=== PATIENT | male | born 1945 | race Two or more races ===

== ENCOUNTER 2022-07-30 01:28 | Inpatient (IN) | payer BC, OTHER ==
[2022-07-30] VITALS (9 sets, daily range): BP systolic 108–142; BP diastolic 35–82
[~2022-07-30] VITALS: Ht 188 cm; Wt 85.7 kg
--- NOTE | 2022-07-30 01:31 | NUR ---
PT BIBRA FROM SN[facility] FOR C/O SOB,AMS, AND DESAURATION. PER EMS, PT FOUND SATTING IN THE 60S AND WAS PLACED ON 15LPM NRB WHICH WILLIAM SAT UP TO HIGH 90S. PT MENTATION RETURNED TO BASELINE AFTER BEING PLACED ON O2. PT AWAKE AND ALERT ANSWERS QUESTIONS APPROPRIATELY. TITRATED O2 TO 8LPM SIMPLE MASK AND MAITAINED O2 AT 100%. MD WAS AT BEDSIDE FOR EVAL.
--- NOTE | 2022-07-30 01:34 | NUR ---
SHANDA [facility] [phone]
[2022-07-30] MEDS ORDERED: ALBUTEROL FS 2.5 MG/3 ML VIAL.NEB ONE ×2 (01:51→06:05)
[2022-07-30] MEDS ORDERED: IPRATROPIUM NEB FS 0.5 MG/2.5 ML AMPUL.NEB ONE (01:51)
--- NOTE | 2022-07-30 01:52 | NUR ---
20G IV ESTABLISHED AT . BLOOD DRAWN AND SENT TO LAB Addendum: 07/30/22 at 0518 by SIERRA 20G IV AT LEFT FOREARM
[2022-07-30] MEDS ORDERED: methylPREDNISolone SOD SUCC 125 MG/2ML VIAL ONE (01:53)
--- NOTE | 2022-07-30 01:59 | NUR ---
RT AT BEDSIDE FOR BREATHING TX
[2022-07-30] MEDS ORDERED: ALBUTEROL FS 2.5 MG/3 ML VIAL.NEB NEB ONE (02:00)
[2022-07-30] MEDS ORDERED: methylPREDNISolone SOD SUCC 125 MG/2ML VIAL IV ONE (02:00)
[2022-07-30] MEDS ORDERED: IPRATROPIUM NEB FS 0.5 MG/2.5 ML AMPUL.NEB NEB ONE (02:00)
--- NOTE | 2022-07-30 02:07 | NUR ---
XRAY AT BEDSIDE
[2022-07-30 02:09] LABS: BASOPHILS % (AUTO) 0.2 % (0.0-2.0); EOSINOPHILS % (AUTO) 1.5 % (0.0-6.0); HEMATOCRIT 34 % (39-51); HEMOGLOBIN 10.4 g/dL (13.5-17.5); LYMPHOCYTES # (AUTO) 0.7 K/uL (0.8-4.8); LYMPHOCYTES % (AUTO) 5.4 % (20.0-44.0); MEAN CORPUSCULAR HGB CONC 31 g/dl (31.0-36.0); MEAN CORPUSCULAR VOLUME 86 fL (80-96); MONOCYTES # (AUTO) 1.7 K/uL (0.1-1.30); MONOCYTES % (AUTO) 12.9 % (2.0-12.0); NEUTROPHILS # (AUTO) 10.6 K/uL (1.8-8.9); PLATELET COUNT (AUTO) 206 K/uL (150-450); RED BLOOD CELL COUNT(AUTO) 3.96 MIL/uL (4.5-6.0); WHITE BLOOD COUNT (AUTO) 13.2 K/uL (4.3-11.0)
--- NOTE | 2022-07-30 02:56 | NUR ---
Lauren michaels in EDM - 07/30/22 at 0258 by [email or web address] PT O2 TITRTED TO 3LPM NC. PT TOLERATING WELL.
--- NOTE | 2022-07-30 02:56 | NUR ---
COVID SWAB COLLECTED AND SENT TO LAB
--- NOTE | 2022-07-30 02:58 | NUR ---
PT O2 TITRTED TO 6LPM SIMPLE MASK. PT TOLERATING WELL.
--- NOTE | 2022-07-30 02:59 | NUR ---
move packet submitted and nursing sup called for bed
[2022-07-30 03:08] LABS: CALCIUM, SERUM 8.3 mg/dL (8.5-10.1); CHLORIDE 92 mmol/L (98-107); GLUCOSE 113 mg/dL (74-106); SODIUM SERUM 139 mmol/L (136-145); UREA NITROGEN, BLOOD 9 mg/dL (7-18)
[2022-07-30 03:10] LABS: CARBON DIOXIDE 48 mmol/L (21-32); POTASSIUM 2.7 mmol/L (3.5-5.1)
[2022-07-30] MEDS ORDERED: POTASSIUM CHLORIDE 20 MEQ TAB.PRT.SR PO ONE ×2 (03:14→03:30)
[2022-07-30] MEDS ORDERED: POTASSIUM CL. PREMIX PERIPHER. 50 ML ONE ×4 (03:27→06:52)
[2022-07-30] MEDS: POTASSIUM CL. PREMIX PERIPHER. 50 ML IV SCH ×4 (03:34→06:56)
--- NOTE | 2022-07-30 03:42 | NUR ---
RT AT BEDSIDE FOR ABG
[2022-07-30] MEDS ORDERED: IV NS 0.9% 250 ML IV ONE (03:48)
[2022-07-30] MEDS ORDERED: IOHEXOL-350 100 ML VIAL IV ONE (03:48)
[2022-07-30 03:52] LABS: ABG BASE EXCESS 19.4 mmol/L; ABG PCO2 87.2 mmHg (35.0-45.0); ABG PH 7.365 (7.350-7.450); ABG PO2 124.9 mmHg (75.0-100.0); COHb 0.9 % (0.5-1.5); MetHb 0.5 % (0.0-1.5); SITE, ABG Right Radial; VENT MODE, BG 5L SIMPLEMASK
--- NOTE | 2022-07-30 03:55 | NUR ---
PT BEING TRANSPORTED TO CT [facility]IA [facility]
--- NOTE | 2022-07-30 04:13 | NUR ---
RT AT BEDSIDE FOR BIPAP APPLICATION
[2022-07-30] MEDS ORDERED: ALBUTEROL SULFATE 8 GM HFA.AER.AD IH ONE (04:30)
--- NOTE | 2022-07-30 05:15 | NUR ---
BIPAP SETTINGS 15/5 FIO2 40% RATE 20
--- NOTE | 2022-07-30 05:17 | NUR ---
SECOND IV ESTABLISHED 20G AT LAC PER ICU PROTOCOL
[2022-07-30] MEDS ORDERED: ACETAMINOPHEN 650 MG/SUPP.RECT RC PRN (06:00)
[2022-07-30] MEDS ORDERED: ONDANSETRON HCL/PF 4 MG/2 ML VIAL IVP PRN (06:00)
[2022-07-30] MEDS ORDERED: ALBUTEROL FS 2.5 MG/3 ML VIAL.NEB CONTNEB ONE (06:00)
[2022-07-30] MEDS ORDERED: ENOXAPARIN SODIUM 40 MG/0.4 ML DISP.SYRIN SQ SCH (06:00)
--- NOTE | 2022-07-30 06:10 | NUR ---
RT AT BEDSIDE FOR BREATHING TX
[2022-07-30] MEDS: CEFTRIAXONE 2 G in IV NS 0.9% 100 ML IV SCH ×3 (06:30→08:12)
[2022-07-30] MEDS ORDERED: IPRATROPIUM NEB FS 0.5 MG/2.5 ML AMPUL.NEB NEB SCH (07:35)
[2022-07-30] MEDS ORDERED: ALBUTEROL FS 2.5 MG/0.5 ML VIAL.NEB NEB SCH (07:35)
[2022-07-30] MEDS ORDERED: CEFTRIAXONE 1GM BAG (ER ONLY) 50 ML IV ONE ×2 (07:45→08:13)
[2022-07-30] MEDS ORDERED: ENOXAPARIN SODIUM 40 MG/0.4 ML DISP.SYRIN SQ ONE (07:45)
[2022-07-30] MEDS ORDERED: methylPREDNISolone SOD SUCC 40 MG/ML VIAL ONE (07:45)
--- NOTE | 2022-07-30 07:47 | NUR ---
BED 256
--- NOTE | 2022-07-30 08:01 | NUR ---
RT ATTEMPTED TO TAKE OFF BIPAP TO BE PLACED ON NC, INCREASED WORK OF BREATHING PLACED BACK ON
[2022-07-30] MEDS ORDERED: PETR113O TP (08:12)
[2022-07-30] MEDS ORDERED: ARFO15VI NEB (08:12)
[2022-07-30] MEDS ORDERED: PANT40TA2 PO (08:12)
[2022-07-30] MEDS ORDERED: ALBU2.5V38 NEB (08:12)
[2022-07-30] MEDS ORDERED: FINA5TAB11 PO (08:12)
[2022-07-30] MEDS ORDERED: FURO-144 PO (08:12)
[2022-07-30] MEDS ORDERED: ASCO-340 PO (08:12)
[2022-07-30] MEDS ORDERED: NICO-676 TD (08:12)
[2022-07-30] MEDS ORDERED: AMIO400T5 PO (08:12)
[2022-07-30] MEDS ORDERED: QUET50TA PO (08:12)
[2022-07-30] MEDS ORDERED: POLY17PO4 PO (08:12)
[2022-07-30] MEDS ORDERED: MULT-447 PO (08:12)
[2022-07-30] MEDS ORDERED: NYST15OI2 TP (08:12)
[2022-07-30] MEDS ORDERED: DAPA10TA PO (08:12)
[2022-07-30] MEDS ORDERED: METO25TA3 PO (08:12)
[2022-07-30] MEDS ORDERED: ATOR10TA PO (08:12)
[2022-07-30] MEDS ORDERED: ASPI-1420 PO (08:12)
[2022-07-30] MEDS ORDERED: TAMS-12 PO (08:12)
[2022-07-30] MEDS ORDERED: TIOT18CA3 IH (08:12)
[2022-07-30] MEDS ORDERED: BUDE0.5A4 IH (08:12)
[2022-07-30] MEDS ORDERED: DOCU-141 PO (08:12)
[2022-07-30] MEDS: ENOXAPARIN SODIUM 40 MG/0.4 ML DISP.SYRIN SQ SCH (09:00)
[2022-07-30] MEDS: methylPREDNISolone SOD SUCC 40 MG/ML VIAL IV SCH ×3 (09:00→18:12)
[2022-07-30] MEDS ORDERED: methylPREDNISolone SOD SUCC 40 MG/ML VIAL IV SCH (09:00)
--- NOTE | 2022-07-30 10:21 | NUR ---
LOVENOX, DEXAMETHASONE, ROCEPHIN GIVEN IN ER
[2022-07-30] MEDS: PANTOPRAZOLE 40 MG VIAL IV SCH (10:24)
[2022-07-30 11:34] LABS: ABG BASE EXCESS 10.5 mmol/L; ABG OXYGEN SATURATION 94.5 % (92.0-98.5); ABG PCO2 62.8 mmHg (35.0-45.0); ABG PH 7.393 (7.350-7.450); ABG PO2 75.2 mmHg (75.0-100.0); AaDO2 137.8 mmHg; COHb 0.8 % (0.5-1.5); MetHb 0.4 % (0.0-1.5); O2Hb 93.4 % (94.0-97.0); SITE, ABG Right Radial; VENT MODE, BG 15/5 RR20
--- NOTE | 2022-07-30 19:28 | NUR ---
RN/ICU PT ALERT AND AWAKE A/O X2. VITAL WNL NO S/S OF DISTRESS. PT IS ON BIPAP VENTILATOR CONTINUES TO ATTEMPT TO REMOVE THE MASK. HOB ELEVATED BED ALARM ON X3 SIDE RAILS
[2022-07-30] MEDS: IPRATROPIUM NEB FS 0.5 MG/2.5 ML AMPUL.NEB NEB SCH ×2 (19:45→23:17)
[2022-07-30] MEDS: ALBUTEROL FS 2.5 MG/0.5 ML VIAL.NEB NEB SCH ×2 (19:46→23:17)
--- NOTE | 2022-07-30 20:00 | NUR ---
RN NOTE RECEIVED PT ON BIPAP 15/5 RATE 20 FIO2 40%/ NOT IN ANY DISTRESS. O2 SAT AT 97%. PT TRYING TO REMOVE MASK AND WANTED WATER, EXPLAINED TO PT NPO STATUS. ALL SAFETY MEASURES IN PLACE, WILL CONTINUE TO MONITOR.
[2022-07-31] VITALS (25 sets, daily range): BP systolic 112–171; BP diastolic 40–126
[2022-07-31] MEDS: ALBUTEROL FS 2.5 MG/0.5 ML VIAL.NEB NEB SCH ×6 (03:10→23:35)
[2022-07-31] MEDS: IPRATROPIUM NEB FS 0.5 MG/2.5 ML AMPUL.NEB NEB SCH ×6 (03:10→23:35)
[2022-07-31 04:53] LABS: HEMATOCRIT 32 % (39-51); HEMOGLOBIN 9.7 g/dL (13.5-17.5); LYMPHOCYTES # (AUTO) 0.1 K/uL (0.8-4.8); LYMPHOCYTES % (AUTO) 2.1 % (20.0-44.0); MEAN CORPUSCULAR HGB CONC 31 g/dl (31.0-36.0); MEAN CORPUSCULAR VOLUME 86 fL (80-96); MONOCYTES # (AUTO) 0.6 K/uL (0.1-1.30); MONOCYTES % (AUTO) 8.7 % (2.0-12.0); NEUTROPHILS # (AUTO) 5.7 K/uL (1.8-8.9); NEUTROPHILS % (AUTO) 89.2 % (43.0-81.0); PLATELET COUNT (AUTO) 219 K/uL (150-450); RED BLOOD CELL COUNT(AUTO) 3.67 MIL/uL (4.5-6.0); WHITE BLOOD COUNT (AUTO) 6.4 K/uL (4.3-11.0)
[2022-07-31 05:10] LABS: ALANINE AMINOTRANSFERASE 13 U/L (12-78); ALKALINE PHOSPHATASE 47 U/L (46-116); ASPARTATE AMINOTRANSFERASE 12 U/L (15-37); BILIRUBIN,TOTAL 0.5 mg/dL (0.2-1.0); CALCIUM, SERUM 8.8 mg/dL (8.5-10.1); CHLORIDE 96 mmol/L (98-107); CREATININE 0.8 mg/dL (0.6-1.3); GLUCOSE 136 mg/dL (74-106); MAGNESIUM 2.3 mg/dL (1.8-2.4); PHOSPHORUS 3.6 mg/dL (2.5-4.9); POTASSIUM 3.7 mmol/L (3.5-5.1); SODIUM SERUM 142 mmol/L (136-145); TOTAL PROTEIN, SERUM 6.4 g/dL (6.4-8.2); UREA NITROGEN, BLOOD 12 mg/dL (7-18)
[2022-07-31 05:19] LABS: THYROID STIMULATING HORMONE 0.707 uIU/mL (0.358-3.74)
[2022-07-31 05:42] LABS: CARBON DIOXIDE 48 mmol/L (21-32)
--- NOTE | 2022-07-31 06:52 | NUR ---
RN NOTE PT TOLERATES BIPAP. 96% O2 SAT. NO SIGNS OF DISTRESS NOTED. DENIES ANY PAIN. REMAIN NPO. ALL SAFETY MEASURES REMAIN IN PLACE. WILL ENDORSE TO AM SHIFT NURSE FOR ODILON.
--- NOTE | 2022-07-31 07:30 | NUR ---
RN/ICU OPENING PT IN BED ALERT A/O X3 ON BIPAP SATING NOW AT 97%. BEDSIDE MONITOR SHOWS VITALS WNL. LFA 20G AND L WRIST 20G BOTH FLUSH AND SALINE LOCK NO S/S OF INFILTRATIONS. DRESSINGS CLEAN AND DRY
[2022-07-31] MEDS ORDERED: Z GUARD REMEDY 4 OZ OINT TP PRN (08:00)
[2022-07-31] MEDS: PANTOPRAZOLE 40 MG VIAL IV SCH (08:15)
[2022-07-31] MEDS: methylPREDNISolone SOD SUCC 40 MG/ML VIAL IV SCH ×3 (08:16→17:44)
[2022-07-31] MEDS: CEFTRIAXONE 2 G in IV D5W 100 ML IV SCH (08:17)
[2022-07-31] MEDS: ENOXAPARIN SODIUM 40 MG/0.4 ML DISP.SYRIN SQ SCH (08:19)
[2022-07-31] MEDS ORDERED: CEFTRIAXONE 2 G in IV NS 0.9% 100 ML IV SCH (09:00)
--- NOTE | 2022-07-31 19:00 | NUR ---
RN NOTE Received patient in bed, AO x 3-4, in no acute distress, saturation at 93% on 50% fio2 via venturi mask, ST on the monitor, HR 113. IV line at LAC 20g, and L Wrist 20g patent and flushing well. External urine catheter in place draining to a clear, yellow output. Safety measures in place, bed alarm is on, bed is locked and at lowest position, call light within reach of patient. Will cont to monitor and reassess for any changes.
--- NOTE | 2022-07-31 19:14 | NUR ---
RN/ICU CLOSING PT ON VENTURI MASK AT 50% SAT 88% WITHIN ORDERED RANGE. PT IS A/O X3 ORIENTED TO TIME PLACE AND SITUATION. NO S/S OF DISTRESS. IV LINES FLUSHED AND SALINE LOCK. BEDSIDE MONITOR VITAL WNL. HOB ELEVATED TO 45 DEGREES BED ALARM ON.
--- NOTE | 2022-07-31 19:50 | NUR ---
RCVD PT ON VENTURI MASK 12L , 40%. PLACED PT ON NOC BIPAP 15/5, RR 20,FIO2 40% PS 10, PT IS ALERT, AWAKE AND FOLLOWS COMMAND Q4 BREATHING TX GIVEN, NO ADVERSE REACTION NOTED. NO RESPIRATORY OR SOB NOTED AT THIS TIME. WILL CONTINUE TO MONITOR T/O SHIFT.
[2022-08-01] VITALS (31 sets, daily range): BP systolic 101–145; BP diastolic 59–87
[2022-08-01] MEDS: ALBUTEROL FS 2.5 MG/0.5 ML VIAL.NEB NEB SCH ×6 (03:39→23:31)
[2022-08-01] MEDS: IPRATROPIUM NEB FS 0.5 MG/2.5 ML AMPUL.NEB NEB SCH ×6 (03:40→23:31)
--- NOTE | 2022-08-01 08:00 | NUR ---
rn notes Received patient with BIPAP at this time, and Pt with the patient to change nc 3l, patient get breathing treatment, a/ox3, refused pain, due medication administered. patient tolerated breakfast well. no sob noted, assist morning care, turn and reposition q 2 hr.
[2022-08-01] MEDS: CEFTRIAXONE 2 G in IV D5W 100 ML IV SCH (08:43)
[2022-08-01] MEDS: PANTOPRAZOLE 40 MG VIAL IV SCH (08:43)
[2022-08-01] MEDS: methylPREDNISolone SOD SUCC 40 MG/ML VIAL IV SCH ×3 (08:43→17:48)
[2022-08-01] MEDS: ENOXAPARIN SODIUM 40 MG/0.4 ML DISP.SYRIN SQ SCH (08:51)
[2022-08-01] MEDS: MUPIROCIN OINT 2% 22 GM TUBE NS SCH ×2 (08:52→20:38)
--- NOTE | 2022-08-01 09:38 | NUR ---
rn notes Seen patient via hospitalist, Dr Macdonald, and official court reporter Dr Zimmerman. patient stable to downgrade to the tele department, also get verbal order PT evaluation. order taken and carried out.
[2022-08-01 10:09] LABS: ABG BASE EXCESS 16.3 mmol/L; ABG OXYGEN SATURATION 90.9 % (92.0-98.5); ABG PCO2 49.7 mmHg (35.0-45.0); ABG PH 7.533 (7.350-7.450); ABG PO2 56.7 mmHg (75.0-100.0); AaDO2 171.3 mmHg; COHb 0.6 % (0.5-1.5); MetHb 0.1 % (0.0-1.5); O2Hb 90.3 % (94.0-97.0); SITE, ABG Left Radial; VENT MODE, BG VENTURI MASK 40%
[2022-08-01] MEDS ORDERED: POLYETHYLENE GLYCOL 3350 17 GM POWD.PACK PO ONE (12:00)
[2022-08-01] MEDS: DOCUSATE SODIUM 100 MG CAPSULE PO SCH ×2 (12:05→17:48)
--- NOTE | 2022-08-01 12:05 | NUR ---
RN NOTES GET ORDER X1 MIRALAX 17GM FOR CONSTIPATION. ENCOURAGED PATIENT TO INCREASE FLUID INTAKE.
--- NOTE | 2022-08-01 14:00 | NUR ---
rn notes PATIENT WITH THE PT AT THIS TIME, SITTING EDGE OF THE BED, O2-3LNC, GET DISATURATED DURING. PER Dr CHAVEZ GET VERBAL NEW ORDER VENTURE MASK 9L. ORDER TAKEN AND CARRIED OUT, RT AWARE OF. WITH 2 PT ASSIST PATIENT ABLE TO TO STAND UP, AND BACK TO THE BED.
--- NOTE | 2022-08-01 18:15 | NUR ---
rn notes transferred patient to the tele unit with stable condition. bedside report given RN follow plan of care.
--- NOTE | 2022-08-01 19:30 | NUR ---
CHYNA RN OPENING NOTE RECEIVED PT IN BED AWAKE, A/O X 3-4, ABLE TO MAKE NEEDS KNOWN AND WITH PERIODS OF CONFUSION. REORIENTATION NEEDED. CURRENTLY ON O2 VIA NC AT 4L. TOLERATING WELL. NO S/SX OF RESPI DISTRESS NOTED AT THIS TIME. NO PAIN, NO SOB. TELE MONITOR READS SR-ST WITH HR RANGING FROM 80-100s. O2 SAT AT >88%. LAC AND LW NOTED, NO FLUIDS INFUSING. ALL SAFETY MEASURES IN PLACE: BED LOCKED IN LOW POSITION, BED ALARM ON. CALL LIGHT WITHIN REACH. WILL CONTINUE TO MONITOR T/O THE SHIFT.
--- NOTE | 2022-08-01 20:17 | NUR ---
RT pt refused noc bipap. notified girish grace rn
[2022-08-01] MEDS: SENNOSIDES/DOCUSATE SODIUM 1 TAB TABLET PO SCH (21:00)
[2022-08-02] VITALS: BP 136/77
[2022-08-02] MEDS: IPRATROPIUM NEB FS 0.5 MG/2.5 ML AMPUL.NEB NEB SCH ×6 (03:30→23:39)
[2022-08-02] MEDS: ALBUTEROL FS 2.5 MG/0.5 ML VIAL.NEB NEB SCH ×6 (03:30→23:39)
[2022-08-02 04:00] VITALS: BP 144/82
--- NOTE | 2022-08-02 06:41 | NUR ---
RN CLOSING NOTE NO SIGNIFICANT CHANGE T/O THE NIGHT. PT REFUSED BOTH HIS BIPAP AT NIGHT AND BREATHING TREATMENT THIS MORNING. HAS EPISODES OF CONFUSION. ON 5L OF O2 VIA NC, O2 SAT RANGES BETWEEN 88-95%. WILL ENDORSE TO AM SHIFT NURSE FOR ODILON.
[2022-08-02 08:00] VITALS: BP 140/89
[2022-08-02] MEDS: CEFTRIAXONE 2 G in IV D5W 100 ML IV SCH (08:03)
[2022-08-02] MEDS: DOCUSATE SODIUM 100 MG CAPSULE PO SCH ×3 (08:03→16:02)
[2022-08-02] MEDS: methylPREDNISolone SOD SUCC 40 MG/ML VIAL IV SCH ×3 (08:03→16:02)
[2022-08-02] MEDS: PANTOPRAZOLE 40 MG VIAL IV SCH (08:03)
[2022-08-02] MEDS: MUPIROCIN OINT 2% 22 GM TUBE NS SCH ×2 (08:04→22:23)
[2022-08-02] MEDS: ENOXAPARIN SODIUM 40 MG/0.4 ML DISP.SYRIN SQ SCH (08:05)
--- NOTE | 2022-08-02 11:01 | NUR ---
RN NOTE TALKED TO SHANDA [phone]. SHANDA REQUEST FOR PT TO BE SENT TO AN ACUTE REHAB OF HER CHOICE ONCE PT CLEARED FOR DISCHARGE.
[2022-08-02 12:00] VITALS: BP 126/82
--- NOTE | 2022-08-02 13:31 | NUR ---
RN NOTE SPUTUM CULTURE COLLECTED, PLACED IN BIOHAZARD FRIDGE FOR BEAM HOUSE INSPECTOR BY LAB.
[2022-08-02 16:00] VITALS: BP 140/83
--- NOTE | 2022-08-02 19:20 | NUR ---
RN NOTES RECEIVED PT FOR CONTINUITY OF CARE. PATIENT A/OX3-4 IN NO S/SX OF ACUTE DISTRESS AT THIS TIME; CURRENTLY ON 5L OF 02 VIA NC; WITH 02 SAT 90% AT THIS TIME. WITH IV ACCESS ON L AC#20 AND L WRIST#20 PATENT, INTACT AND FLUSHING WELL. WILL ENSURE SAFETY MEASURES WITHIN THE SHIFT. PATIENT BED ALARM IS ON. HEAD OF BED ELEVATED. BED IS LOCKED, IN LOWEST POSITION AND SIDE RAILS UP. CALL LIGHT WITHIN REACH OF THE PATIENT. WILL CONTINUE TO MONITOR AND REASSESS FOR ANY CHANGES AND WILL CARRY OUT ANY ONGOING AND ACTIVE MD ORDER.
[2022-08-02 20:00] VITALS: BP 118/78
--- NOTE | 2022-08-02 20:36 | NUR ---
RT NOTE INCREASED TO 6LPM N/C. PATIENT CURRENTLY REFUSING BIPAP. EXPLAINED TO PATIENT HOW THE BIPAP WILL BENEFIT HIM. PATIENT STILL REFUSING TO COMPLY. EXPLAINED TO PATIENT HE MAY NEED IT IF HIS CONDITION WORSENS DURING THE NIGHT BUT PATIENT SAID "I WOULD RATHER HAVE A TUBE THAN WEAR THE MASK." REPORTED TO PRIMARY NURSE. NURSE IS AWARE.
--- NOTE | 2022-08-02 20:40 | NUR ---
RN NOTES RT COORDINATED THAT PT REFUSING NOC BIPAP, RN EXPLAINED RISK AND BENEFITS BUT PT STILL REFUSED. ONCSHERRIE ANGEL AWARE (TEDDY,ASAEL) ; GOAL IS TO MAINTAIN 02 SAT 90% OR >, CURRENT ON SAT OF PT IS 90% ON 5L O2 VIA NC. ACKNOWLEDGED. WAS GIVEN ORDER IF <90% MIGHT NEED TO PUT PT ON RESTRAINTS TO GET HIM ON BIPAP. RN ACKNOWLEDGED. WILL CONTINUE TO MONITOR THROUGHOUT THE SHIFT. UNDERWRITING CLERK MADE AWARE.
--- NOTE | 2022-08-02 22:03 | NUR ---
RT NOTE PLACED PATIENT ON VENTI MASK 40%. SPO2 96%. WILL TITRATE NEEDED. CHARGED NURSE IS AWARE.
[2022-08-02] MEDS: SENNOSIDES/DOCUSATE SODIUM 1 TAB TABLET PO SCH (22:21)
[2022-08-03] VITALS: BP 145/78
[2022-08-03 04:00] VITALS: BP 132/72
[2022-08-03] MEDS: IPRATROPIUM NEB FS 0.5 MG/2.5 ML AMPUL.NEB NEB SCH ×5 (04:00→20:12)
[2022-08-03] MEDS: ALBUTEROL FS 2.5 MG/0.5 ML VIAL.NEB NEB SCH ×5 (04:01→20:12)
[2022-08-03 06:10] LABS: HEMATOCRIT 30 % (39-51); HEMOGLOBIN 9.3 g/dL (13.5-17.5); LYMPHOCYTES # (AUTO) 0.2 K/uL (0.8-4.8); LYMPHOCYTES % (AUTO) 2.7 % (20.0-44.0); MEAN CORPUSCULAR HGB CONC 31 g/dl (31.0-36.0); MEAN CORPUSCULAR VOLUME 84 fL (80-96); MONOCYTES # (AUTO) 0.9 K/uL (0.1-1.30); MONOCYTES % (AUTO) 11.5 % (2.0-12.0); NEUTROPHILS % (AUTO) 85.8 % (43.0-81.0); PLATELET COUNT (AUTO) 240 K/uL (150-450); RED BLOOD CELL COUNT(AUTO) 3.55 MIL/uL (4.5-6.0); WHITE BLOOD COUNT (AUTO) 8.1 K/uL (4.3-11.0)
--- NOTE | 2022-08-03 06:30 | NUR ---
RN CLOSING NOTE: PATIENT REMAINS IN ROOM IN NO SIGNS OF RESPIRATORY DISTRESS, PATIENT STILL ON VENTI MASK 12L FIO2 40% TOLERATING WELL WITH 02 SAT AT 90-92%. SAFETY MEASURES IMPLEMENTED, BED IN LOWEST POSITION, LOCKED, SIDE RAILS UP, CALL LIGHT WITHIN REACH. ALL NEEDS AND ORDERS ADDRESSED DURING THE SHIFT. IV ACCESS MAINTAINED INTACT, SECURED AND FLUSHING WELL. ALL DUE MEDS GIVEN ORDERED & SCHEDULED ; PATIENT TOLERATED WELL. PATIENT KEPT CLEAN AND COMFORTABLE WITHIN THE SHIFT. PATIENT ENDORSED TO INCOMING SHIFT RN WITH STABLE VITAL SIGN AND FOR CONTINUITY OF CARE.
[2022-08-03 06:40] LABS: ALBUMIN 2.7 g/dL (3.4-5.0); BILIRUBIN,TOTAL 0.4 mg/dL (0.2-1.0); CALCIUM, SERUM 8.6 mg/dL (8.5-10.1); CREATININE 0.7 mg/dL (0.6-1.3); MAGNESIUM 2.4 mg/dL (1.8-2.4); PHOSPHORUS 4.8 mg/dL (2.5-4.9); POTASSIUM 3.5 mmol/L (3.5-5.1); TOTAL PROTEIN, SERUM 5.5 g/dL (6.4-8.2)
--- NOTE | 2022-08-03 07:23 | NUR ---
RN NOTE CO2 43. DR. MONCADA NOTIFIED.
[2022-08-03 08:00] VITALS: BP 118/76
[2022-08-03] MEDS: methylPREDNISolone SOD SUCC 40 MG/ML VIAL IV SCH ×3 (08:05→16:04)
[2022-08-03] MEDS: CEFTRIAXONE 2 G in IV D5W 100 ML IV SCH (08:05)
[2022-08-03] MEDS: DOCUSATE SODIUM 100 MG CAPSULE PO SCH ×3 (08:05→16:04)
[2022-08-03] MEDS: PANTOPRAZOLE 40 MG TABLET.DR PO SCH (08:05)
[2022-08-03] MEDS: MUPIROCIN OINT 2% 22 GM TUBE NS SCH ×2 (08:06→21:36)
[2022-08-03] MEDS: ENOXAPARIN SODIUM 40 MG/0.4 ML DISP.SYRIN SQ SCH (08:06)
[2022-08-03 12:00] VITALS: BP 111/77
[2022-08-03 16:00] VITALS: BP 98/66
--- NOTE | 2022-08-03 19:30 | NUR ---
RECEIVED PT FOR CONTINUITY OF CARE. PATIENT A/OX3-4 IN NO S/SX OF ACUTE DISTRESS AT THIS TIME; CURRENTLY ON 12L 40% FiO2 VIA VENTURI MASK. WITH IV ACCESS ON L AC#20 AND L WRIST#20. WILL ENSURE SAFETY MEASURES WITHIN THE SHIFT. PATIENT BED ALARM IS ON. HEAD OF BED ELEVATED. BED IS LOCKED, IN LOWEST POSITION AND SIDE RAILS UP. CALL LIGHT WITHIN REACH OF THE PATIENT. WILL CONTINUE TO MONITOR AND REASSESS FOR ANY CHANGES AND WILL CARRY OUT ANY ONGOING AND ACTIVE MD ORDER.
[2022-08-03 20:00] VITALS: BP 113/89
[2022-08-03] MEDS: SENNOSIDES/DOCUSATE SODIUM 1 TAB TABLET PO SCH (21:35)
[2022-08-04] VITALS: BP 137/82
[2022-08-04] MEDS: ALBUTEROL FS 2.5 MG/0.5 ML VIAL.NEB NEB SCH ×7 (00:04→23:25)
[2022-08-04] MEDS: IPRATROPIUM NEB FS 0.5 MG/2.5 ML AMPUL.NEB NEB SCH ×7 (00:04→23:25)
[2022-08-04 04:00] VITALS: BP 141/79
[2022-08-04 06:18] LABS: EOSINOPHILS % (AUTO) 0.1 % (0.0-6.0); HEMATOCRIT 30 % (39-51); HEMOGLOBIN 9.3 g/dL (13.5-17.5); LYMPHOCYTES # (AUTO) 0.2 K/uL (0.8-4.8); LYMPHOCYTES % (AUTO) 2.3 % (20.0-44.0); MEAN CORPUSCULAR HGB CONC 31 g/dl (31.0-36.0); MEAN CORPUSCULAR VOLUME 83 fL (80-96); MONOCYTES # (AUTO) 0.9 K/uL (0.1-1.30); MONOCYTES % (AUTO) 11.8 % (2.0-12.0); NEUTROPHILS # (AUTO) 6.6 K/uL (1.8-8.9); NEUTROPHILS % (AUTO) 85.8 % (43.0-81.0); PLATELET COUNT (AUTO) 283 K/uL (150-450); RED BLOOD CELL COUNT(AUTO) 3.59 MIL/uL (4.5-6.0); WHITE BLOOD COUNT (AUTO) 7.7 K/uL (4.3-11.0)
[2022-08-04 06:39] LABS: ALANINE AMINOTRANSFERASE 15 U/L (12-78); ALBUMIN 2.6 g/dL (3.4-5.0); ALKALINE PHOSPHATASE 30 U/L (46-116); ASPARTATE AMINOTRANSFERASE 9 U/L (15-37); BILIRUBIN,TOTAL 0.4 mg/dL (0.2-1.0); CALCIUM, SERUM 8.3 mg/dL (8.5-10.1); CHLORIDE 95 mmol/L (98-107); CREATININE 0.7 mg/dL (0.6-1.3); GLUCOSE 128 mg/dL (74-106); MAGNESIUM 2.3 mg/dL (1.8-2.4); PHOSPHORUS 3.6 mg/dL (2.5-4.9); POTASSIUM 3.6 mmol/L (3.5-5.1); SODIUM SERUM 136 mmol/L (136-145); TOTAL PROTEIN, SERUM 5.3 g/dL (6.4-8.2); UREA NITROGEN, BLOOD 6 mg/dL (7-18)
[2022-08-04 06:44] LABS: CARBON DIOXIDE 42 mmol/L (21-32)
--- NOTE | 2022-08-04 06:54 | NUR ---
Co2 42. Charge nurses informed.
--- NOTE | 2022-08-04 07:02 | NUR ---
PATIENT A/OX3-4 IN NO S/SX OF ACUTE DISTRESS AT THIS TIME; CURRENTLY ON 12L 40% FiO2 VIA VENTURI MASK. WITH IV ACCESS ON L AC#20 AND L WRIST#20. ENSURED SAFETY MEASURES WITHIN THE SHIFT. PATIENT BED ALARM IS ON. HEAD OF BED ELEVATED. BED IS LOCKED, IN LOWEST POSITION AND SIDE RAILS UP. CALL LIGHT WITHIN REACH OF THE PATIENT. WILL ENDORSE TO NEXT NURSE ON DUTY FOR CONTINUITY OF CARE.
--- NOTE | 2022-08-04 07:28 | NUR ---
ASP NET PROGRAMMER OPENING NOTES: RECEIVED PATIENT IN BED ASLEEP BUT EASILY AROUSES TO SOUND AND TOUCH. PATIENT IS ALERT, ORIENTED X 4. ON OXYGEN @ 5L/MIN VIA N/C WITH OXYGEN SATURATION OF 92%. NO RESPIRATORY DISTRESS NOTED. ON SR ON TELE MONITOR WITH HR OF 88. HAS IV ACCESS ON LEFT AC AND LEFT WRIST, BOTH PATENT, FLUSHES WELL, NO S/S INFILTRATION NOTED. CALL LIGHT WITHIN REACH. BED LOCKED AND IN LOWEST POSITION. ALL SAFETY MEASURES IN PLACE. WILL CONTINUE TO MONITOR PATIENT THROUGHOUT SHIFT.
[2022-08-04] MEDS: PANTOPRAZOLE 40 MG TABLET.DR PO SCH (07:58)
[2022-08-04 08:00] VITALS: BP 118/70
[2022-08-04] MEDS: DOCUSATE SODIUM 100 MG CAPSULE PO SCH ×3 (08:19→16:29)
[2022-08-04] MEDS: methylPREDNISolone SOD SUCC 40 MG/ML VIAL IV SCH ×3 (08:19→16:29)
[2022-08-04] MEDS: ENOXAPARIN SODIUM 40 MG/0.4 ML DISP.SYRIN SQ SCH (08:20)
[2022-08-04] MEDS: MUPIROCIN OINT 2% 22 GM TUBE NS SCH ×2 (08:37→21:44)
[2022-08-04] MEDS: CEFTRIAXONE 2 G in IV D5W 100 ML IV SCH (08:38)
[2022-08-04] MEDS: FUROSEMIDE 20 MG/2 ML VIAL IV SCH ×2 (11:38→16:29)
[2022-08-04 12:00] VITALS: BP 107/71
--- NOTE | 2022-08-04 13:43 | NUR ---
PER PHYSICAL THERAPIST, PATIENT REFUSED TO WALK WITH THE THERAPIST TODAY.
[2022-08-04 16:00] VITALS: BP 102/70
--- NOTE | 2022-08-04 18:56 | NUR ---
NET DEVELOPER ARCHITECT CLOSING NOTES: PATIENT IN BED, AWAKE, ALERT AND ORIENTED X 4 WITH FAMILY AT BEDSIDE. ON SR WITH HR OF 98 ON TELE MONITOR. PATIENT HAS NO C/O PAIN OR DISCOMFORT THE ENTIRE SHIFT. WILL ENDORSE TO NEXT SHIFT NURSE FOR CONTINUITY OF CARE.
--- NOTE | 2022-08-04 19:30 | NUR ---
RECEIVED PT FOR CONTINUITY OF CARE. PATIENT A/OX3-4 IN NO S/SX OF ACUTE DISTRESS AT THIS TIME; CURRENTLY ON 10-12L 40% FiO2 VIA VENTURI MASK. WITH IV ACCESS ON L AC#20 AND L WRIST#20. WILL ENSURE SAFETY MEASURES WITHIN THE SHIFT. PATIENT BED ALARM IS ON. HEAD OF BED ELEVATED. BED IS LOCKED, IN LOWEST POSITION AND SIDE RAILS UP. CALL LIGHT WITHIN REACH OF THE PATIENT. WILL CONTINUE TO MONITOR AND REASSESS FOR ANY CHANGES AND WILL CARRY OUT ANY ONGOING AND ACTIVE MD ORDER.
[2022-08-04 20:00] VITALS: BP 117/71
[2022-08-04] MEDS: SENNOSIDES/DOCUSATE SODIUM 1 TAB TABLET PO SCH (21:44)
--- NOTE | 2022-08-04 23:45 | NUR ---
RT PT REFUSING NOC BIPAP. RISK AND BENEFITS DISCUSSED WITH PT. RN AWARE. PT ON VENTURI MASK FIO2 40% 12LPM.
[2022-08-05] VITALS (7 sets, daily range): BP systolic 101–159; BP diastolic 69–102
[2022-08-05] MEDS: IPRATROPIUM NEB FS 0.5 MG/2.5 ML AMPUL.NEB NEB SCH ×6 (03:30→23:23)
[2022-08-05] MEDS: ALBUTEROL FS 2.5 MG/0.5 ML VIAL.NEB NEB SCH ×6 (03:30→23:23)
[2022-08-05 07:18] LABS: CALCIUM, SERUM 8.7 mg/dL (8.5-10.1); CHLORIDE 89 mmol/L (98-107); CREATININE 0.7 mg/dL (0.6-1.3); GLUCOSE 96 mg/dL (74-106); POTASSIUM 3.4 mmol/L (3.5-5.1); SODIUM SERUM 133 mmol/L (136-145); UREA NITROGEN, BLOOD 16 mg/dL (7-18)
--- NOTE | 2022-08-05 07:25 | NUR ---
DIRECTOR OF SOCIAL SERVICES OPENING NOTES: RECEIVED PATIENT IN BED, ASLEEP BUT EASILY AROUSES TO VOICE AND TACTILE STIMULI. NO RESPIRATORY DISTRESS NOTED AT THIS TIME, ON OXYGEN @ 12 L/MIN VIA VENTURI MASK WITH OXYGEN SATURATION OF 97%. ON SR ON TELE MONITOR WITH HR OF 95. IV ACCESS ON LEFT AC AND LEFT WRIST BOTH PATENT, INTACT AND FLUSHES WELL, NO REDNESS AND NO S/S INFILTRATION NOTED. BED LOCKED AND IN LOWEST POSITION, CALL LIGHT WITHIN REACH. ALL SAFETY MEASURES IMPLEMENTED. WILL CONTINUE TO MONITOR PATIENT THROUGHOUT SHIFT.
[2022-08-05 07:28] LABS: CARBON DIOXIDE 43 mmol/L (21-32)
--- NOTE | 2022-08-05 07:32 | NUR ---
PT FOR CONTINUITY OF CARE. PATIENT A/OX3-4 IN NO S/SX OF ACUTE DISTRESS AT THIS TIME; CURRENTLY ON 10-12L 40% FiO2 VIA VENTURI MASK. WITH IV ACCESS ON L AC#20 AND L WRIST#20. ENSURED SAFETY MEASURES WITHIN THE SHIFT. PATIENT BED ALARM IS ON. HEAD OF BED ELEVATED. BED IS LOCKED, IN LOWEST POSITION AND SIDE RAILS UP. CALL LIGHT WITHIN REACH OF THE PATIENT. WILL ENDORSE TO NEXT NURSE ON DUTY FOR CONTINUITY OF CARE.
[2022-08-05] MEDS: PANTOPRAZOLE 40 MG TABLET.DR PO SCH (07:43)
[2022-08-05] MEDS: CEFTRIAXONE 2 G in IV D5W 100 ML IV SCH (08:08)
[2022-08-05] MEDS: DOCUSATE SODIUM 100 MG CAPSULE PO SCH ×3 (08:08→16:37)
[2022-08-05] MEDS: methylPREDNISolone SOD SUCC 40 MG/ML VIAL IV SCH ×3 (08:08→16:37)
[2022-08-05] MEDS: FUROSEMIDE 20 MG/2 ML VIAL IV SCH ×2 (08:09→16:37)
[2022-08-05] MEDS: ENOXAPARIN SODIUM 40 MG/0.4 ML DISP.SYRIN SQ SCH (08:11)
[2022-08-05] MEDS: MUPIROCIN OINT 2% 22 GM TUBE NS SCH ×2 (08:15→21:01)
[2022-08-05 08:20] LABS: ABG OXYGEN SATURATION 93.6 % (92.0-98.5); ABG PCO2 65.6 mmHg (35.0-45.0); ABG PO2 72.2 mmHg (75.0-100.0); AaDO2 137.6 mmHg; COHb 0.8 % (0.5-1.5); MetHb 0.2 % (0.0-1.5); O2Hb 92.7 % (94.0-97.0); SITE, ABG Right Radial; VENT MODE, BG Venturi Mask 12LPM/40%
[2022-08-05] MEDS ORDERED: POTASSIUM CHLORIDE 20 MEQ TAB.PRT.SR PO ONE (11:00)
--- NOTE | 2022-08-05 12:47 | NUR ---
PATIENT WAS NOTED TO HAVE AN ELEVATED BP OF 159/102 PULSE 117. PATIENT IS A LITTLE ANXIOUS AND WOULD LIKE TO GO HOME. DR. AL ORDERED NORVASC X 1, ORDER NOTED AND CARRIED OUT. EXPLAINED TO THE PATIENT THAT HE NEEDED TO WAIT FOR A DISCHARGE ORDER IF HE NEEDS TO GO HOME TODAY. PATIENT AGREED AND UNDERSTOOD AND WILL WAIT.
[2022-08-05] MEDS ORDERED: AMLODIPINE BESYLATE 10 MG TABLET PO SCH (13:00)
--- NOTE | 2022-08-05 16:00 | NUR ---
PATIENT STILL REQUESTED TO LEAVE TODAY AND WILL SIGN AMA IF NEEDED DESPITE THE NURSES' EXPLANATION OF THE IMPORTANCE OF HIM STAYING HERE UNTIL HE GETS AN ORDER FOR DISCHARGE BUT CAME BY AND SPOKE WITH THE PATIENT TO STAY. PATIENT AGREED AND UNDERSTOOD AND WILL NOT SIGN AN AMA.
--- NOTE | 2022-08-05 18:46 | NUR ---
DIRECTOR DIGITAL SALES CLOSING NOTES: PATIENT IN BED, ASLEEP BUT EASILY AROUSES TO VOICE AND SOUND. PATIENT HAS NO SOB NOTED, STILL ON OXYGEN @ 12L/MIN VIA VENTURI MASK. ON SR WITH HR OF 97 ON TELE MONITOR. BED LOCKED AND IN LOWEST POSITION. CALL LIGHT WITHIN REACH. ALL NEEDS MET AND ANTICIPATED. WILL ENDORSE TO NEXT SHIFT NURSE. FOR CONTINUITY OF CARE
--- NOTE | 2022-08-05 19:32 | NUR ---
EYEGLASS LENS CUTTER OPENING NOTES RECEIVED PT AWAKE ON BED A/OX3 IN NO S/SX OF ACUTE DISTRESS AT THIS TIME; CURRENTLY ON 10-12L 40% FiO2 VIA VENTURI MASK. WITH IV ACCESS ON LAC #20 AND L WRIST#20. WILL ENSURE SAFETY MEASURES WITHIN THE SHIFT. PATIENT BED ALARM IS ON. HEAD OF BED ELEVATED. BED IS LOCKED, IN LOWEST POSITION AND SIDE RAILS UP. CALL LIGHT WITHIN REACH OF THE PATIENT. WILL CONTINUE TO MONITOR THROUGHOUT THE SHIFT.
[2022-08-05] MEDS: SENNOSIDES/DOCUSATE SODIUM 1 TAB TABLET PO SCH (21:01)
[2022-08-06] VITALS: BP 98/63
[2022-08-06] MEDS: ALBUTEROL FS 2.5 MG/0.5 ML VIAL.NEB NEB SCH ×6 (03:26→23:23)
[2022-08-06] MEDS: IPRATROPIUM NEB FS 0.5 MG/2.5 ML AMPUL.NEB NEB SCH ×6 (03:26→23:23)
[2022-08-06 04:00] VITALS: BP 120/77
--- NOTE | 2022-08-06 06:32 | NUR ---
ANKLE PATCH MOLDER CLOSING NOTES PATIENT REMAINS IN BED A/OX3-4 IN NO S/SX OF ACUTE DISTRESS AT THIS TIME; CURRENTLY ON 12L 40% FiO2 VIA VENTURI MASK TOLERATING WELL. WITH IV ACCESS ON L AC#20 AND L WRIST#20 INTACT AND PATENT NO IVF RUNNING AT THIS TIME. ON TELEMONITORING CURRENTLY READING SR AT 98BPM, ALL DUE MEDS GIVEN, KEPT DRY AND CLEAN, ENSURED SAFETY MEASURES WITHIN THE SHIFT. PATIENT BED ALARM IS ON. HEAD OF BED ELEVATED. BED IS LOCKED AND IN LOWEST POSITION. CALL LIGHT WITHIN REACH OF THE PATIENT. WILL ENDORSE TO AM SHIFT NURSE FOR CONTINUITY OF CARE.
--- NOTE | 2022-08-06 07:20 | NUR ---
GOVERNMENT SERVICE EXECUTIVE OPENING NOTES RECEIVED PT AWAKE ON BED A/OX3 IN NO S/SX OF ACUTE DISTRESS AT THIS TIME; CURRENTLY ON 10-12L 40% FiO2 VIA VENTURI MASK. WITH IV ACCESS ON LAC #20 AND L WRIST#20. WILL ENSURE SAFETY MEASURES WITHIN THE SHIFT. PATIENT BED ALARM IS ON. HEAD OF BED ELEVATED. BED IS LOCKED, IN LOWEST POSITION AND SIDE RAILS UP. CALL LIGHT WITHIN REACH OF THE PATIENT.
[2022-08-06 08:00] VITALS: BP 99/67
[2022-08-06] MEDS: methylPREDNISolone SOD SUCC 40 MG/ML VIAL IV SCH ×3 (08:20→17:23)
[2022-08-06] MEDS: PANTOPRAZOLE 40 MG TABLET.DR PO SCH (08:20)
[2022-08-06] MEDS: DOCUSATE SODIUM 100 MG CAPSULE PO SCH ×3 (08:20→17:00)
[2022-08-06] MEDS: FUROSEMIDE 20 MG/2 ML VIAL IV SCH ×2 (08:20→17:24)
[2022-08-06] MEDS: ENOXAPARIN SODIUM 40 MG/0.4 ML DISP.SYRIN SQ SCH (08:30)
[2022-08-06] MEDS: MUPIROCIN OINT 2% 22 GM TUBE NS SCH ×2 (08:30→21:37)
[2022-08-06] MEDS: CEFTRIAXONE 2 G in IV D5W 100 ML IV SCH (09:16)
[2022-08-06 12:00] VITALS: BP 94/60
[2022-08-06 14:47] LABS: BASOPHILS # (AUTO) 0.1 K/uL (0.0-0.2); BASOPHILS % (AUTO) 0.6 % (0.0-2.0); HEMATOCRIT 35 % (39-51); HEMOGLOBIN 10.8 g/dL (13.5-17.5); LYMPHOCYTES # (AUTO) 0.1 K/uL (0.8-4.8); LYMPHOCYTES % (AUTO) 0.9 % (20.0-44.0); MEAN CORPUSCULAR HGB CONC 31 g/dl (31.0-36.0); MEAN CORPUSCULAR VOLUME 83 fL (80-96); MONOCYTES # (AUTO) 0.3 K/uL (0.1-1.30); MONOCYTES % (AUTO) 2.2 % (2.0-12.0); NEUTROPHILS # (AUTO) 12.3 K/uL (1.8-8.9); NEUTROPHILS % (AUTO) 96.3 % (43.0-81.0); PLATELET COUNT (AUTO) 403 K/uL (150-450); RED BLOOD CELL COUNT(AUTO) 4.21 MIL/uL (4.5-6.0); WHITE BLOOD COUNT (AUTO) 12.8 K/uL (4.3-11.0)
[2022-08-06 15:02] LABS: CALCIUM, SERUM 8.6 mg/dL (8.5-10.1); MAGNESIUM 2.1 mg/dL (1.8-2.4); POTASSIUM 3.7 mmol/L (3.5-5.1)
[2022-08-06 15:19] LABS: ABG OXYGEN SATURATION 89.6 % (92.0-98.5); ABG PCO2 57.5 mmHg (35.0-45.0); ABG PH 7.471 (7.350-7.450); ABG PO2 59.2 mmHg (75.0-100.0); AaDO2 159.9 mmHg; COHb 0.9 % (0.5-1.5); MetHb 0.2 % (0.0-1.5); O2Hb 88.6 % (94.0-97.0); SITE, ABG Left Radial
--- NOTE | 2022-08-06 15:45 | NUR ---
RN NOTE PER SABINE REYES PULPER IS TO BE STARTED ON BIPAP 07/16. CONFIRMED IT IS NOT RESCUE BIPAP. RT INFORMED
--- NOTE | 2022-08-06 15:51 | NUR ---
RN NOTE RT ATTEMPTED TO PLACE BIPAP ON PATIENT HE REFUSED, SPOKE TO PATIENT ON THE RISK AND THE NEED FOR BIPAP PATIENT STILL REFUSED INFORMED HOSPITALIST.
--- NOTE | 2022-08-06 15:51 | NUR ---
RT NOTE POST ABG RESULTS SHOWN TO LUZ LYN. ACCOUNT COORDINATOR REYES ORDERED TO PLACE PATIENT ON BIPAP 07/16. PATIENT REFUSED. PATIENT STATES BEING REALLY UNCOMFORTABLE AND CLAUSTROPHOBIC WITH BIPAP MASK ON. BALTAZAR CHARGE NURSE NOTIFIED AND AWARE. NO SOB NOTED AT THIS TIME. WILL CONTINUE TO MONITOR FOR ANY CHANGES.
[2022-08-06 16:00] VITALS: BP 92/69
--- NOTE | 2022-08-06 18:39 | NUR ---
RN CLOSING NOTES PATIENT REMAINS IN BED A/OX3-4 IN NO S/SX OF ACUTE DISTRESS AT THIS TIME; CURRENTLY ON 12L 40% FiO2 VIA VENTURI MASK TOLERATING WELL. WITH IV ACCESS ON L AC#20 AND L WRIST#20 INTACT AND PATENT NO IVF RUNNING AT THIS TIME. KEPT DRY AND CLEAN, ENSURED SAFETY MEASURES WITHIN THE SHIFT. PATIENT BED ALARM IS ON. HEAD OF BED ELEVATED. BED IS LOCKED AND IN LOWEST POSITION. CALL LIGHT WITHIN REACH OF THE PATIENT. WILL ENDORSE TO PM SHIFT NURSE FOR CONTINUITY OF CARE.
--- NOTE | 2022-08-06 19:35 | NUR ---
SALES ENABLEMENT LEAD OPEN NOTE: ALERT AND ORIENTED X4. ON O2 12 LITERS VIA VENTURI MASK. IV ON LEFT AC 20G AND LEFT WRIST INTACT AND PATENT SALINE LOCKED. 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 REPOSITIONED WITH PILLOWS. HOB ELEVATED SEMI-FOWLERS POSITION. BED IN LOW POSITION, LOCKED, EXIT ALARM ON. BILATERAL HALF SIDE RAILS UP X2. CALL LIGHT IN REACH. NO S/S OF PAIN. NOTED WITH EPISODES OF NOT WANTING BIPAP, PATIENT STATED HE GETS CLAUSTROPHOBIC WITH IT AND THAT WILL TAKE HIS BREATHING TX AND O2 WITHOUT THE BIPAP. RISKS VS BENEFITS EXPLAINED, VERBALIZED UNDERSTANDING AND STILL REFUSED. OFFERED TIMES THREE.
[2022-08-06 20:00] VITALS: BP 115/70
--- NOTE | 2022-08-06 21:36 | NUR ---
RT pt refuses to go on bipap. will continue with venti mask 12L. informed pt why bipap was ordered for pt. still refuses. notified jonathan villatoro
[2022-08-06] MEDS: SENNOSIDES/DOCUSATE SODIUM 1 TAB TABLET PO SCH (21:40)
[2022-08-07] VITALS (7 sets, daily range): BP systolic 107–131; BP diastolic 57–81
[2022-08-07] MEDS: ALBUTEROL FS 2.5 MG/0.5 ML VIAL.NEB NEB SCH ×6 (03:50→23:37)
[2022-08-07] MEDS: IPRATROPIUM NEB FS 0.5 MG/2.5 ML AMPUL.NEB NEB SCH ×6 (03:51→23:37)
[2022-08-07 06:33] LABS: CALCIUM, SERUM 8.6 mg/dL (8.5-10.1); CHLORIDE 91 mmol/L (98-107); CREATININE 0.8 mg/dL (0.6-1.3); GLUCOSE 111 mg/dL (74-106); MAGNESIUM 2.2 mg/dL (1.8-2.4); PHOSPHORUS 4.1 mg/dL (2.5-4.9); SODIUM SERUM 134 mmol/L (136-145); UREA NITROGEN, BLOOD 21 mg/dL (7-18)
[2022-08-07 06:45] LABS: BASOPHILS % (AUTO) 0.2 % (0.0-2.0); HEMATOCRIT 34 % (39-51); HEMOGLOBIN 10.7 g/dL (13.5-17.5); LYMPHOCYTES # (AUTO) 0.2 K/uL (0.8-4.8); MEAN CORPUSCULAR HGB CONC 31 g/dl (31.0-36.0); MEAN CORPUSCULAR VOLUME 82 fL (80-96); MONOCYTES # (AUTO) 1.3 K/uL (0.1-1.30); MONOCYTES % (AUTO) 11.2 % (2.0-12.0); NEUTROPHILS # (AUTO) 10.4 K/uL (1.8-8.9); NEUTROPHILS % (AUTO) 86.6 % (43.0-81.0); PLATELET COUNT (AUTO) 368 K/uL (150-450); RED BLOOD CELL COUNT(AUTO) 4.19 MIL/uL (4.5-6.0); WHITE BLOOD COUNT (AUTO) 11.9 K/uL (4.3-11.0)
--- NOTE | 2022-08-07 06:55 | NUR ---
APPLICATIONS ANALYST CLOSING NOTE: ALERT AND ORIENTED X4. ON O2 12 LITERS VIA VENTURI MASK. IV ON LEFT AC 20G AND LEFT WRIST INTACT AND PATENT SALINE LOCKED. TELE MONITOR ON WITH A READING OF ON AND OFF A.FIB WITH PVC, FIST DEGREE AV BLOCK. PATIENT HAS EPISODES HE TAKES OFF THE VENTURI MASK, AND PATIENT TEACHING PROVIDED THE IMPORTANCE OF VENTURI MASKS, VERBALIZED UNDERSTANDING AND ABLE TO MAINTAINED VENTURI MASKS ON. REPOSITIONED WITH PILLOWS. HOB ELEVATED SEMI-FOWLERS POSITION. BED IN LOW POSITION, LOCKED, EXIT ALARM ON. BILATERAL HALF SIDE RAILS UP X2. CALL LIGHT IN REACH. NO S/S OF PAIN. NOTED WITH EPISODES OF NOT WANTING BIPAP, PATIENT STATED HE GETS CLAUSTROPHOBIC WITH IT AND THAT WILL TAKE HIS BREATHING TX AND O2 WITHOUT THE BIPAP. RISKS VS BENEFITS EXPLAINED, VERBALIZED UNDERSTANDING AND STILL REFUSED. OFFERED TIMES THREE.
--- NOTE | 2022-08-07 06:55 | NUR ---
ENDORSED TO INCOMING NURSE.
[2022-08-07] MEDS: PANTOPRAZOLE 40 MG TABLET.DR PO SCH (07:30)
[2022-08-07] MEDS: methylPREDNISolone SOD SUCC 40 MG/ML VIAL IV SCH ×3 (08:05→16:44)
[2022-08-07] MEDS: FUROSEMIDE 20 MG/2 ML VIAL IV SCH ×2 (08:05→16:44)
[2022-08-07] MEDS: ENOXAPARIN SODIUM 40 MG/0.4 ML DISP.SYRIN SQ SCH (08:10)
[2022-08-07] MEDS: MUPIROCIN OINT 2% 22 GM TUBE NS SCH ×2 (08:11→21:04)
[2022-08-07] MEDS: DOCUSATE SODIUM 100 MG CAPSULE PO SCH ×3 (08:11→16:44)
[2022-08-07] MEDS: CEFTRIAXONE 2 G in IV D5W 100 ML IV SCH (08:38)
[2022-08-07 08:59] LABS: CARBON DIOXIDE 42 mmol/L (21-32)
[2022-08-07] MEDS ORDERED: POTASSIUM CHLORIDE 20 MEQ TAB.PRT.SR PO SCH ×2 (10:00→12:00)
--- NOTE | 2022-08-07 15:54 | NUR ---
RN NOTE PATIENT DID NOT TAKE AM PO MEDICATION HOSPITALIST MADE AWARE
--- NOTE | 2022-08-07 15:57 | NUR ---
RN NOTE SPOKE TO , UPDATE WAS GIVEN
--- NOTE | 2022-08-07 20:00 | NUR ---
MANAGER ACUTE OPENING NOTES RECEIVED PT AWAKE ON BED A/OX3 IN NO S/SX OF ACUTE DISTRESS NO SOB NO DISTRESS NOTED AT THIS TIME V/A STABLE AFEBRILE , ON 12L 40% FiO2 VIA VENTURI MASK. SATING 93-95% WITH IV ACCESS ON LAC #20 AND L WRIST#20 SL NO INFILTRATION NOTED .. WILL ENSURE SAFETY MEASURES WITHIN THE SHIFT. PATIENT BED ALARM IS ON. HEAD OF BED ELEVATED. BED IS LOCKED, IN LOWEST POSITION AND SIDE RAILS UP. CALL LIGHT WITHIN REACH OF THE PATIENT. WILL CONTINUE TO MONITOR PTS , SPOKE TO UPDATED WITH PTS CONDITION.
[2022-08-07] MEDS: SENNOSIDES/DOCUSATE SODIUM 1 TAB TABLET PO SCH (21:04)
[2022-08-08] VITALS: BP 118/63
[2022-08-08] MEDS: IPRATROPIUM NEB FS 0.5 MG/2.5 ML AMPUL.NEB NEB SCH ×6 (03:30→23:30)
[2022-08-08] MEDS: ALBUTEROL FS 2.5 MG/0.5 ML VIAL.NEB NEB SCH ×6 (03:30→23:30)
[2022-08-08 04:00] VITALS: BP 121/75
--- NOTE | 2022-08-08 06:17 | NUR ---
senior telecommunications consultant notes Pts refused bipap explain r/b .will continue to monitor.
--- NOTE | 2022-08-08 06:18 | NUR ---
RN CLOSING NOTES PATIENT REMAINS IN BED A/OX3-4 IN NO S/SX OF ACUTE DISTRESS AT THIS TIME; ON 12L 40% FiO2 VIA VENTURI MASK TOLERATING WELL. ENSURED SAFETY MEASURES WITHIN THE SHIFT. PATIENT BED ALARM IS ON. HEAD OF BED ELEVATED. BED IS LOCKED AND IN LOWEST POSITION. CALL LIGHT WITHIN REACH OF THE PATIENT. WILL ENDORSE TO RN DAY SHIFT NURSE FOR CONTINUITY OF CARE.
--- NOTE | 2022-08-08 07:47 | NUR ---
RN NOTE PT RECEIVED ASLEEP IN BED, RESPONSIVE TO STIMULI. ON VENTURI MASK @ 12L, TOLERATING WELL. STILL NOTED REFUSING BIPAP. WITH IV ACCESS ON LAC G20 AND L WRIST G20. NO IVF. SAFETY MEASURES MAINTAINED. WILL CONT TO MONITOR.
[2022-08-08 08:00] VITALS: BP 112/68
[2022-08-08] MEDS: methylPREDNISolone SOD SUCC 40 MG/ML VIAL IV SCH ×3 (09:28→17:43)
[2022-08-08] MEDS: DOCUSATE SODIUM 100 MG CAPSULE PO SCH ×3 (09:28→17:00)
[2022-08-08] MEDS: FUROSEMIDE 20 MG/2 ML VIAL IV SCH ×2 (09:29→17:44)
[2022-08-08] MEDS: ENOXAPARIN SODIUM 40 MG/0.4 ML DISP.SYRIN SQ SCH (09:32)
[2022-08-08] MEDS: PANTOPRAZOLE 40 MG TABLET.DR PO SCH (09:33)
[2022-08-08 11:01] LABS: ABG BASE EXCESS 15.3 mmol/L; ABG OXYGEN SATURATION 92.4 % (92.0-98.5); ABG PCO2 60.6 mmHg (35.0-45.0); ABG PH 7.456 (7.350-7.450); ABG PO2 66.8 mmHg (75.0-100.0); AaDO2 148.7 mmHg; COHb 0.8 % (0.5-1.5); MetHb 0.3 % (0.0-1.5); O2Hb 91.4 % (94.0-97.0); SITE, ABG Right Radial
--- NOTE | 2022-08-08 11:17 | NUR ---
RN NOTE PT ABG REPORTED TO KEN ANGEL, NO CHANGES ORDERED.
[2022-08-08 12:00] VITALS: BP 134/71
--- NOTE | 2022-08-08 12:43 | NUR ---
RN NOTE PMD MADE AWARE OF PT REFUSING AM LABS.
[2022-08-08 16:00] VITALS: BP 134/71
[2022-08-08] MEDS: AMIODARONE HCL 200 MG TABLET PO SCH (17:43)
--- NOTE | 2022-08-08 18:45 | NUR ---
RN NOTE PT RESTING IN BED, RESPONSIVE TO STIMULI. ON VENTURI MASK @ 12L, TOLERATING WELL. STILL NOTED REFUSING BIPAP. WITH IV ACCESS ON LAC G20 AND L WRIST G20. NO IVF. SAFETY MEASURES MAINTAINED. DUE MEDICATIONS GIVEN, AM/PM CARE RENDERED. WILL CONT TO MONITOR.
[2022-08-08 20:00] VITALS: BP 122/82
--- NOTE | 2022-08-08 20:00 | NUR ---
EXPERIENCE PLANNING STRATEGIST OPENING NOTES RECEIVED PT AWAKE ON BED A/OX3 WITH PERIOD OF CONFUSION . NO S/SX OF ACUTE DISTRESS NO SOB NO DISTRESS NOTED AT THIS TIME V/A STABLE AFEBRILE , ON 12L 40% FiO2 VIA VENTURI MASK. SATING 92-93% WITH IV ACCESS ON LAC #20 AND L WRIST#20 SL NO INFILTRATION NOTED .PTS NOTED WITH EPISODE OF TAKING OUT O2 EDUCATE HIM NOT TO REMOVE REFUSED BIPAP ORDERED EXPLAIN R/B PTS STILL DOESNT WANT. PER RT FUENTES PTS REFUSED TREATMENT. WILL ENSURE SAFETY MEASURES WITHIN THE SHIFT. PATIENT BED ALARM IS ON. HEAD OF BED ELEVATED. BED IS LOCKED, IN LOWEST POSITION AND SIDE RAILS UP. CALL LIGHT WITHIN REACH OF THE PATIENT. WILL CONTINUE TO MONITOR PTS .
[2022-08-08] MEDS: SENNOSIDES/DOCUSATE SODIUM 1 TAB TABLET PO SCH (21:37)
[2022-08-08] MEDS: TAMSULOSIN 0.4 MG CAP.SR.24H PO SCH (21:37)
[2022-08-08] MEDS: QUETIAPINE FUMARATE 25 MG TABLET PO SCH (21:38)
[2022-08-08] MEDS: ATORVASTATIN 10 MG TABLET PO SCH (21:39)
[2022-08-09] VITALS: BP 148/90
--- NOTE | 2022-08-09 00:11 | NUR ---
RT pt refused neb tx.no sob, no resp distress. sat 92%. notified jonathan singh. pt refused bipap.
[2022-08-09] MEDS: IPRATROPIUM NEB FS 0.5 MG/2.5 ML AMPUL.NEB NEB SCH ×5 (03:26→20:00)
[2022-08-09] MEDS: ALBUTEROL FS 2.5 MG/0.5 ML VIAL.NEB NEB SCH ×5 (03:26→20:00)
--- NOTE | 2022-08-09 03:41 | NUR ---
RT pt refused neb tx. no sob, no resp distress
[2022-08-09 04:00] VITALS: BP 158/90
--- NOTE | 2022-08-09 06:28 | NUR ---
ACID CONCENTRATOR CLOSING NOTES PATIENT REMAINS IN BED A/OX3- WITH PERIOD OF CONFUSION DID NOT SLEEP THE WHOLE NITE. NO SOB NO DISTRESS NOTED. NO S/SX OF ACUTE DISTRESS AT THIS TIME; ON 12L 40% FiO2 VIA VENTURI MASK TOLERATING WELL. ENSURED SAFETY MEASURES WITHIN THE SHIFT. PATIENT BED ALARM IS ON. HEAD OF BED ELEVATED. BED IS LOCKED AND IN LOWEST POSITION. CALL LIGHT WITHIN REACH OF THE PATIENT. WILL ENDORSE TO RN DAY SHIFT NURSE FOR CONTINUITY OF CARE.
--- NOTE | 2022-08-09 07:25 | NUR ---
telecommunication systems designer notes pts trying to jump out of bed , made aware with order bilateral soft wrist restraint to prevent from climbing out of bed.
--- NOTE | 2022-08-09 07:25 | NUR ---
PULLMAN CONDUCTOR OPENING NOTES RECEIVED PATIENT, AWAKE IN BED. WITH CONFUSION AND DISORIENTATION. REALITY AWARENESS PROVIDED NEEDED. ON 12L 40% FiO2 VIA VENTURI MASK, NO S/SX OF ACUTE DISTRESS, NO SOB NOTED AT THIS TIME. SATING 97%. NOTED WITH IV ACCESS ON LAC #20 AND L WRIST#20 SL, NO INFILTRATION NOTED. PATIENT NOTED WITH EPISODE OF TRYING TO GET OOB. NOTED WITH SOFT WRIST RESTRAINTS IN PLACE. SKIN AND CIRCULATION CHECKED, WNL. SAFETY MEASURES IN PLACE. BED LOCKED AND IN LOWEST POSITION, BED ALARM ON, SIDE RAILS UP, CALL LIGHT PLACED WITHIN EASY REACH. WILL CONTINUE TO MONITOR PATIENT.
[2022-08-09 08:00] VITALS: BP 145/109
[2022-08-09] MEDS: PANTOPRAZOLE 40 MG TABLET.DR PO SCH (08:50)
[2022-08-09] MEDS: FINASTERIDE (5 MG) 5 MG TABLET PO SCH (08:51)
[2022-08-09] MEDS: DOCUSATE SODIUM 100 MG CAPSULE PO SCH ×3 (08:51→16:43)
[2022-08-09] MEDS: NICOTINE PATCH (14MG) 14 MG PATCH.TD24 TD SCH (08:51)
[2022-08-09] MEDS: AMIODARONE HCL 200 MG TABLET PO SCH ×2 (08:51→16:43)
[2022-08-09] MEDS: ASPIRIN EC 81 MG TABLET.DR PO SCH (08:52)
[2022-08-09] MEDS: MULTIVIT W/MINERALS 1 TAB TABLET PO SCH (08:52)
[2022-08-09] MEDS: METOPROLOL SUCCINATE 25 MG TAB.SR.24H PO SCH (08:52)
[2022-08-09] MEDS: FUROSEMIDE 20 MG/2 ML VIAL IV SCH ×2 (08:52→16:43)
[2022-08-09] MEDS: methylPREDNISolone SOD SUCC 40 MG/ML VIAL IV SCH ×3 (08:52→16:43)
[2022-08-09] MEDS: ASCORBIC ACID 500 MG TABLET PO SCH (08:55)
[2022-08-09] MEDS: ENOXAPARIN SODIUM 40 MG/0.4 ML DISP.SYRIN SQ SCH (08:55)
[2022-08-09 10:41] LABS: BASOPHILS % (AUTO) 0.1 % (0.0-2.0); HEMATOCRIT 35 % (39-51); HEMOGLOBIN 10.9 g/dL (13.5-17.5); LYMPHOCYTES # (AUTO) 0.2 K/uL (0.8-4.8); LYMPHOCYTES % (AUTO) 2.2 % (20.0-44.0); MEAN CORPUSCULAR HGB CONC 31 g/dl (31.0-36.0); MEAN CORPUSCULAR VOLUME 83 fL (80-96); MONOCYTES # (AUTO) 0.9 K/uL (0.1-1.30); NEUTROPHILS % (AUTO) 87.7 % (43.0-81.0); PLATELET COUNT (AUTO) 309 K/uL (150-450); RED BLOOD CELL COUNT(AUTO) 4.28 MIL/uL (4.5-6.0); WHITE BLOOD COUNT (AUTO) 9.1 K/uL (4.3-11.0)
[2022-08-09 11:14] LABS: CALCIUM, SERUM 8.9 mg/dL (8.5-10.1); CREATININE 0.7 mg/dL (0.6-1.3); MAGNESIUM 2.3 mg/dL (1.8-2.4); PHOSPHORUS 3.5 mg/dL (2.5-4.9); POTASSIUM 3.1 mmol/L (3.5-5.1)
[2022-08-09 12:00] VITALS: BP 129/88
--- NOTE | 2022-08-09 12:15 | NUR ---
RN NOTE SABINE REYES DNP, MADE AWARE REGARDING PATIENT'S POTASSIUM 3.1 AND CO2 42, WITH NO NEW ORDER AT THIS TIME.
[2022-08-09 16:00] VITALS: BP 99/71
--- NOTE | 2022-08-09 18:45 | NUR ---
RN CLOSING NOTES PATIENT ASLEEP IN BED. EASILY AROUSED, VERBALLY RESPONSIVE. NO SIGNS OF ACUTE DISTRESS NOTED. REMAINS ON 12L 40% FiO2 VIA VENTURI MASK, NO SOB NOTED, BREATHING EVEN AND UNLABORED. SATURATING AT 97%. IV ACCESS ON LAC #20 AND L WRIST#20 SL, INTACT AND PATENT, FLUSHES WELL.PATIENT STILL NOTED WITH EPISODE OF TRYING TO GET OOB. REORIENTED NEEDED, WITH SOFT WRIST RESTRAINTS ORDERED, RELEASED AT THIS TIME PATIENT IS QUIET AND SLEEPING. SAFETY MEASURES IN PLACE. BED LOCKED AND IN LOWEST POSITION, BED ALARM ON, SIDE RAILS UP, CALL LIGHT PLACED WITHIN EASY REACH. WILL ENDORSE TO NEXT SHIFT.
[2022-08-09 20:00] VITALS: BP 104/73
--- NOTE | 2022-08-09 20:18 | NUR ---
LODGE SALES ASSOCIATE OPENING NOTES PATIENT AWAKE IN BED, ALERT/ORIENTED X 2, PT ABLE TO MAKE NEEDS KNOWN. PATIENT STABLE ON VENTURI MASK 12 L, NO S/S OF DISTRESS OR SOB NOTED, BREATHING EVEN AND UNLABORED. PATIENT ON TELE MONITOR READING SINUS RHYTHM, HR: 88. BILATERAL SOFT WRIST RESTRAINTS OFF AT THIS TIME, PT LAYING QUIETLY IN BED, NOT ATTEMPTING TO GET OUT OF BED, WILL PUT RESTRAINTS BACK ON IF PATIENT ATTEMPTS TO GET OUT OF BED, PT VERBALIZED UNDERSTANDING. IV ACCESS ON LAC #20G AND LEFT WRIST #20G INTACT AND SALINE LOCKED. SAFETY MEASURES IN PLACE: CALL LIGHT WITHIN REACH, SIDE RAILS UP X 3, BED LOCKED IN LOWEST POSITION, BED ALARM ON. WILL CONTINUE TO MONITOR PATIENT
[2022-08-09] MEDS: ATORVASTATIN 10 MG TABLET PO SCH (22:12)
[2022-08-09] MEDS: QUETIAPINE FUMARATE 25 MG TABLET PO SCH (22:12)
[2022-08-09] MEDS: SENNOSIDES/DOCUSATE SODIUM 1 TAB TABLET PO SCH (22:12)
[2022-08-09] MEDS: TAMSULOSIN 0.4 MG CAP.SR.24H PO SCH (22:12)
--- NOTE | 2022-08-09 23:15 | NUR ---
RT NOTE PT REFUSING BIPAP AT THIS TIME. NO S/S OF RESP DISTRESS. RN AWARE.
[2022-08-10] VITALS: BP 139/83
[2022-08-10] MEDS: IPRATROPIUM NEB FS 0.5 MG/2.5 ML AMPUL.NEB NEB SCH ×7 (00:43→23:09)
[2022-08-10] MEDS: ALBUTEROL FS 2.5 MG/0.5 ML VIAL.NEB NEB SCH ×7 (00:43→23:09)
[2022-08-10 04:00] VITALS: BP 122/86
--- NOTE | 2022-08-10 06:37 | NUR ---
CERTIFIED REHABILITATION COUNSELOR CLOSING NOTES PATIENT AWAKE IN BED, ALERT/ORIENTED X 2, PT ABLE TO MAKE NEEDS KNOWN. PATIENT STABLE ON VENTURI MASK 12 L, NO S/S OF DISTRESS OR SOB NOTED, BREATHING EVEN AND UNLABORED. PATIENT ON TELE MONITOR READING SINUS RHYTHM, HR: 81. BILATERAL SOFT WRIST RESTRAINTS OFF ALL NIGHT, PT DID NOT ATTEMPT TO GET OUT OF BED OR REMOVE LINES OR O2 MASK. IV ACCESS ON LAC #20G AND LEFT WRIST #20G INTACT AND SALINE LOCKED. MEDICATIONS GIVEN ORDERED, PT NEEDS MET THROUGHOUT SHIFT. SAFETY MEASURES IN PLACE: CALL LIGHT WITHIN REACH, SIDE RAILS UP X 3, BED LOCKED IN LOWEST POSITION, BED ALARM ON. WILL ENDORSE TO DAYSHIFT NURSE FOR CONTINUITY OF CARE
[2022-08-10 08:00] VITALS: BP 113/72
--- NOTE | 2022-08-10 08:00 | NUR ---
RN OPENING NOTE PATIENT RECEIVED IN BED, AO X 2, ABLE TO RESPONDS ALL STIMULI. IN NO ACUTE DISTRESS NOTED. RESPIRATORY EVEN AND UNLABORED ON OXYGEN AT 12Ls VIA VENTURI MASK. SKIN IS WARM TO TOUCH, KEEP CLEAN/DRY. KEPT ELEVATED HOB FOR ENSURE AIRWAY AND ASPIRATION PRECAUTION, ALSO LOWEST POSITION OF THE BED, S/R UP X 3, BED ALARM IS ON AT ALL THE TIMES. ALL SAFETY PRECAUTION APPLIED. CALL LIGHT WITHIN REACH, WILL CONTINUE TO MONITOR.
[2022-08-10 08:37] LABS: BASOPHILS # (AUTO) 0.2 K/uL (0.0-0.2); BASOPHILS % (AUTO) 1.3 % (0.0-2.0); HEMATOCRIT 34 % (39-51); HEMOGLOBIN 10.1 g/dL (13.5-17.5); LYMPHOCYTES # (AUTO) 0.2 K/uL (0.8-4.8); LYMPHOCYTES % (AUTO) 1.6 % (20.0-44.0); MEAN CORPUSCULAR HGB CONC 30 g/dl (31.0-36.0); MEAN CORPUSCULAR VOLUME 82 fL (80-96); MONOCYTES # (AUTO) 1.2 K/uL (0.1-1.30); MONOCYTES % (AUTO) 8.2 % (2.0-12.0); NEUTROPHILS # (AUTO) 12.8 K/uL (1.8-8.9); NEUTROPHILS % (AUTO) 88.9 % (43.0-81.0); PLATELET COUNT (AUTO) 303 K/uL (150-450); RED BLOOD CELL COUNT(AUTO) 4.06 MIL/uL (4.5-6.0); WHITE BLOOD COUNT (AUTO) 14.3 K/uL (4.3-11.0)
[2022-08-10 09:02] LABS: CALCIUM, SERUM 8.5 mg/dL (8.5-10.1); CREATININE 0.7 mg/dL (0.6-1.3); MAGNESIUM 2.3 mg/dL (1.8-2.4); POTASSIUM 3.4 mmol/L (3.5-5.1)
[2022-08-10] MEDS: NICOTINE PATCH (14MG) 14 MG PATCH.TD24 TD SCH (09:12)
[2022-08-10] MEDS: methylPREDNISolone SOD SUCC 40 MG/ML VIAL IV SCH ×3 (09:13→17:03)
[2022-08-10] MEDS: AMIODARONE HCL 200 MG TABLET PO SCH ×2 (09:13→17:12)
[2022-08-10] MEDS: FUROSEMIDE 20 MG/2 ML VIAL IV SCH ×2 (09:13→17:03)
[2022-08-10] MEDS: FINASTERIDE (5 MG) 5 MG TABLET PO SCH (09:13)
[2022-08-10] MEDS: MULTIVIT W/MINERALS 1 TAB TABLET PO SCH (09:13)
[2022-08-10] MEDS: DOCUSATE SODIUM 100 MG CAPSULE PO SCH ×3 (09:14→17:03)
[2022-08-10] MEDS: ASCORBIC ACID 500 MG TABLET PO SCH (09:14)
[2022-08-10] MEDS: PANTOPRAZOLE 40 MG TABLET.DR PO SCH (09:14)
[2022-08-10] MEDS: METOPROLOL SUCCINATE 25 MG TAB.SR.24H PO SCH (09:14)
[2022-08-10] MEDS: ASPIRIN EC 81 MG TABLET.DR PO SCH (09:15)
[2022-08-10] MEDS: ENOXAPARIN SODIUM 40 MG/0.4 ML DISP.SYRIN SQ SCH (09:18)
[2022-08-10 09:41] LABS: PHOSPHORUS 4.2 mg/dL (2.5-4.9)
[2022-08-10] MEDS: ENSURE ENLIVE 237 ML LIQUID (VANILLA) PO SCH (10:14)
[2022-08-10 12:00] VITALS: BP 119/73
[2022-08-10 16:00] VITALS: BP 98/67
[2022-08-10 20:00] VITALS: BP 115/72
--- NOTE | 2022-08-10 20:00 | NUR ---
SMALL ORDER CUTTER OPENING NOTES RECEIVED PT AWAKE ON BED A/OX3 WITH PERIOD OF CONFUSION . NO S/SX OF ACUTE DISTRESS NO SOB NO DISTRESS NOTED AT THIS TIME .V/S STABLE AFEBRILE , ON 12L 40% FiO2 VIA VENTURI MASK. SATING 92-93% WITH IV ACCESS ON LAC #20 AND L WRIST#20 SL NO INFILTRATION NOTED .PTS REFUSED BIPAP ORDERED EXPLAIN R/B PTS STILL DOESNT WANT. PER RT FUENTES PTS REFUSED TREATMENT. WILL ENSURE SAFETY MEASURES WITHIN THE SHIFT. PATIENT BED ALARM IS ON. HEAD OF BED ELEVATED. BED IS LOCKED, IN LOWEST POSITION AND SIDE RAILS UP. CALL LIGHT WITHIN REACH OF THE PATIENT. WILL CONTINUE TO MONITOR PTS .
[2022-08-10] MEDS: SENNOSIDES/DOCUSATE SODIUM 1 TAB TABLET PO SCH (21:06)
[2022-08-10] MEDS: ATORVASTATIN 10 MG TABLET PO SCH (21:06)
[2022-08-10] MEDS: QUETIAPINE FUMARATE 25 MG TABLET PO SCH (21:06)
[2022-08-10] MEDS: TAMSULOSIN 0.4 MG CAP.SR.24H PO SCH (21:07)
--- NOTE | 2022-08-10 23:41 | NUR ---
Pt refuses to wear Bipap. RN aware.
[2022-08-11] VITALS: BP_SYST 103; BP_SYST 132; BP_DIAS 70; BP_DIAS 77
[2022-08-11] MEDS: ALBUTEROL FS 2.5 MG/0.5 ML VIAL.NEB NEB SCH ×6 (03:24→23:53)
[2022-08-11] MEDS: IPRATROPIUM NEB FS 0.5 MG/2.5 ML AMPUL.NEB NEB SCH ×6 (03:24→23:53)
[2022-08-11 04:00] VITALS: BP 97/66
--- NOTE | 2022-08-11 06:48 | NUR ---
PORTRAIT PAINTER CLOSING NOTES PATIENT REMAINS IN BED A/OX3- NO SOB NO DISTRESS NOTED. NO S/SX OF ACUTE DISTRESS AT THIS TIME; ON 12L 40% FiO2 VIA VENTURI MASK TOLERATING WELL. ENSURED SAFETY MEASURES WITHIN THE SHIFT. PATIENT BED ALARM IS ON. HEAD OF BED ELEVATED. BED IS LOCKED AND IN LOWEST POSITION. CALL LIGHT WITHIN REACH OF THE PATIENT. WILL ENDORSE TO RN DAY SHIFT NURSE FOR CONTINUITY OF CARE.
[2022-08-11 07:02] LABS: CALCIUM, SERUM 8.6 mg/dL (8.5-10.1); CREATININE 0.7 mg/dL (0.6-1.3); POTASSIUM 3.4 mmol/L (3.5-5.1)
--- NOTE | 2022-08-11 07:15 | NUR ---
ASSISTANT TRACK COACH OPENING NOTES RECEIVED PATIENT, ASLEEP BUT EASILY AROUSABLE, REMOVING HIS VENTURI MASK, REPLACED IT AND ASKED HIM TO KEEP IT IN PLACE HE TRIED TO REMOVE IT AGAIN EXPLAINED THE IMPORTANCE HE SAID HE WILL KEEP IT AND PLACE IT BACK IN PLACE . WITH CONFUSION AND DISORIENTATION. REALITY AWARENESS PROVIDED NEEDED. ON 12L 40% FiO2 VIA VENTURI MASK, NO S/SX OF ACUTE DISTRESS, NO SOB NOTED AT THIS TIME. SATING 97%. NOTED WITH IV ACCESS ON LAC #20 AND L WRIST#20 SL, NO INFILTRATION NOTED. BED LOCKED AND IN LOWEST POSITION, BED ALARM ON, SIDE RAILS UP, CALL LIGHT PLACED WITHIN EASY REACH. WILL CONTINUE TO MONITOR PATIENT.
[2022-08-11] MEDS: PANTOPRAZOLE 40 MG TABLET.DR PO SCH (07:38)
[2022-08-11 08:00] VITALS: BP 114/70
[2022-08-11] MEDS: FUROSEMIDE 20 MG/2 ML VIAL IV SCH ×2 (09:23→17:00)
[2022-08-11] MEDS: methylPREDNISolone SOD SUCC 40 MG/ML VIAL IV SCH ×3 (09:23→17:41)
[2022-08-11] MEDS: ENOXAPARIN SODIUM 40 MG/0.4 ML DISP.SYRIN SQ SCH (09:24)
[2022-08-11] MEDS: NICOTINE PATCH (14MG) 14 MG PATCH.TD24 TD SCH (09:24)
[2022-08-11] MEDS: AMIODARONE HCL 200 MG TABLET PO SCH ×2 (09:25→17:42)
[2022-08-11] MEDS: DOCUSATE SODIUM 100 MG CAPSULE PO SCH ×3 (09:26→17:41)
[2022-08-11] MEDS: METOPROLOL SUCCINATE 25 MG TAB.SR.24H PO SCH (09:26)
[2022-08-11] MEDS: MULTIVIT W/MINERALS 1 TAB TABLET PO SCH (09:26)
[2022-08-11] MEDS: FINASTERIDE (5 MG) 5 MG TABLET PO SCH (09:27)
[2022-08-11] MEDS: ASCORBIC ACID 500 MG TABLET PO SCH (09:27)
[2022-08-11] MEDS: ENSURE ENLIVE 237 ML LIQUID (VANILLA) PO SCH (09:28)
[2022-08-11] MEDS: ASPIRIN EC 81 MG TABLET.DR PO SCH (09:29)
--- NOTE | 2022-08-11 09:30 | NUR ---
RN notes: seen by Glenn Serrano DOOR CUTTER made aware that CO2 46, pt continue to refuses bipap, offered again to use bipap still refuses , no new order at this time
[2022-08-11 09:31] LABS: BASOPHILS % (AUTO) 0.2 % (0.0-2.0); HEMATOCRIT 34 % (39-51); HEMOGLOBIN 10.1 g/dL (13.5-17.5); LYMPHOCYTES # (AUTO) 0.2 K/uL (0.8-4.8); LYMPHOCYTES % (AUTO) 1.1 % (20.0-44.0); MEAN CORPUSCULAR HGB CONC 30 g/dl (31.0-36.0); MEAN CORPUSCULAR VOLUME 83 fL (80-96); MONOCYTES % (AUTO) 7.3 % (2.0-12.0); NEUTROPHILS # (AUTO) 12.7 K/uL (1.8-8.9); NEUTROPHILS % (AUTO) 91.4 % (43.0-81.0); PLATELET COUNT (AUTO) 274 K/uL (150-450); RED BLOOD CELL COUNT(AUTO) 4.03 MIL/uL (4.5-6.0); WHITE BLOOD COUNT (AUTO) 13.9 K/uL (4.3-11.0)
[2022-08-11] MEDS ORDERED: POTASSIUM CHLORIDE 20 MEQ TAB.PRT.SR PO SCH ×2 (10:00→12:00)
[2022-08-11 12:00] VITALS: BP 104/69
--- NOTE | 2022-08-11 13:45 | NUR ---
EBONI notes: pt is back has new dialysis catheter on right AJ,no signs of bleeding, no s/s of pain or discomfort noted. Addendum: 08/11/22 at 1524 by LINDSEY JAEGER RN WRONG PT
--- NOTE | 2022-08-11 14:00 | NUR ---
EBONI notes: called June VYAS pt is back from the procedure if ok to resume feeding also LINDA recommended nepro at 75ml/hr x 16 hours. she agreed with new orders Addendum: 08/11/22 at 1524 by LINDSEY JAEGER RN WRONG PT
--- NOTE | 2022-08-11 14:42 | NUR ---
RN notes: relayed ABG to DR Zimmerman with order to transfer to ICU with bipap.Charge nurse made aware
[2022-08-11 16:00] VITALS: BP 93/66
--- NOTE | 2022-08-11 17:43 | NUR ---
rn notes: spoke to Glenn Serrano SUPERVISOR [employer] BP 93/66 and HR 88 who said hold lasix and ok to give cordarone
--- NOTE | 2022-08-11 19:02 | NUR ---
MALT LIQUORS SALES REPRESENTATIVE CLOSING NOTES PATIENT REMAINS IN BED A/OX3- NO SOB NO DISTRESS NOTED. NO S/SX OF ACUTE DISTRESS AT THIS TIME; ON 12L 40% FiO2 VIA VENTURI MASK TOLERATING WELL. ENSURED SAFETY MEASURES WITHIN THE SHIFT. PATIENT BED ALARM IS ON. HEAD OF BED ELEVATED. BED IS LOCKED AND IN LOWEST POSITION. CALL LIGHT WITHIN REACH OF THE PATIENT.PT CONTINUE TO REFUSE BIPAP. WILL ENDORSE TO PROPERTY UTILIZATION OFFICERINCLUSION INTERNSHIP NURSE FOR CONTINUITY OF CARE.
[2022-08-11 20:00] VITALS: BP 117/79
[2022-08-11] MEDS: QUETIAPINE FUMARATE 25 MG TABLET PO SCH (21:29)
[2022-08-11] MEDS: TAMSULOSIN 0.4 MG CAP.SR.24H PO SCH (21:29)
[2022-08-11] MEDS: SENNOSIDES/DOCUSATE SODIUM 1 TAB TABLET PO SCH (21:29)
[2022-08-11] MEDS: ATORVASTATIN 10 MG TABLET PO SCH (21:29)
--- NOTE | 2022-08-11 23:06 | NUR ---
NOTCHING PRESS OPERATOR OPENING NOTE PT RECEIVED IN BED, AWAKE, A&O X4, CALM, COOPERATIVE. PT ON VENTURI MASK AT 12LPM WITH CURRENT O2SAT OF 93%; NO S/S OF RESP DISTRESS, NO SOB OR COUGH, NON-LABORED AND EQUAL BREATHING. PT ATTACHED TO EXTERNAL MONITOR SR WITH 1ST DEGREE AV BLOCK, CURRENT HR OF 90. LFA 20G INTACT AND PATENT, FLUSHES EASILY WITH NO RESISTANCE; NO MEDS/FLUIDS INFUSING THROUGH IT. BED IN LOWEST POSITION, CALL LIGHT WITHIN REACH, SIDE RAILS UP X3. WILL CONTINUE TO MONITOR THROUGHOUT THE NIGHT.
[2022-08-12] VITALS: BP 109/71
[2022-08-12] MEDS: IPRATROPIUM NEB FS 0.5 MG/2.5 ML AMPUL.NEB NEB SCH ×6 (03:30→23:41)
[2022-08-12] MEDS: ALBUTEROL FS 2.5 MG/0.5 ML VIAL.NEB NEB SCH ×6 (03:30→23:41)
[2022-08-12 04:00] VITALS: BP 127/86
--- NOTE | 2022-08-12 07:28 | NUR ---
MACHINE CERAMIC COATER NOTE PATIENT IN BED , RESTING COMFORTABLY AT THIS TIME, ON VENTURI MASK, 12L NO SOB NOTED RESPIRATION UNLABORED AT THIS TIME, ON TELE MONITOR ST HR 86 , LT FA HL INTACT AND IN PACE , BED IN LOWEST AND LOCKED POSITION , CALL LIGHT WITHIN REACH , SAFETY MEASURE IMPLEMENTED,ALL NEEDS ATTENDED, WILL CONT TO MONITOR
--- NOTE | 2022-08-12 07:32 | NUR ---
MANAGER OF COMPENSATION CLOSING NOTE PT REMAINS IN BED, ASLEEP BUT EASILY AROUSABLE, A&O X4. CONTINUES TO BE ON VENTURI MASK AT 12LPM WITH CURRENT O2SAT RANGING FROM 91%- 93%; NO S/S OF RESP DISTRESS, NO SOB OR COUGH, NON-LABORED AND EQUAL BREATHING. PT ATTACHED TO EXTERNAL MONITOR SR. LFA 20G INTACT AND PATENT, FLUSHES EASILY WITH NO RESISTANCE; NO MEDS/FLUIDS INFUSING THROUGH IT. ALL DUE MEDS ADMINISTERED DURING THE NIGHT. BED IN LOWEST POSITION, CALL LIGHT WITHIN REACH, SIDE RAILS UP X3. WILL ENDORSE TO DAYSHIFT NURSE TO CONTINUE CARE.
[2022-08-12 07:57] LABS: CALCIUM, SERUM 8.7 mg/dL (8.5-10.1); CHLORIDE 93 mmol/L (98-107); CREATININE 0.6 mg/dL (0.6-1.3); GLUCOSE 107 mg/dL (74-106); MAGNESIUM 2.2 mg/dL (1.8-2.4); PHOSPHORUS 3.4 mg/dL (2.5-4.9); POTASSIUM 3.8 mmol/L (3.5-5.1); SODIUM SERUM 136 mmol/L (136-145); UREA NITROGEN, BLOOD 26 mg/dL (7-18)
[2022-08-12 07:58] LABS: EOSINOPHILS % (AUTO) 0.1 % (0.0-6.0); HEMATOCRIT 32 % (39-51); HEMOGLOBIN 9.9 g/dL (13.5-17.5); LYMPHOCYTES # (AUTO) 0.1 K/uL (0.8-4.8); MEAN CORPUSCULAR HGB CONC 31 g/dl (31.0-36.0); MEAN CORPUSCULAR VOLUME 82 fL (80-96); MONOCYTES % (AUTO) 8.2 % (2.0-12.0); NEUTROPHILS # (AUTO) 11.6 K/uL (1.8-8.9); NEUTROPHILS % (AUTO) 90.7 % (43.0-81.0); PLATELET COUNT (AUTO) 219 K/uL (150-450); WHITE BLOOD COUNT (AUTO) 12.8 K/uL (4.3-11.0)
[2022-08-12 07:59] LABS: CARBON DIOXIDE 43 mmol/L (21-32)
[2022-08-12 08:00] VITALS: BP 110/83
[2022-08-12] MEDS: MULTIVIT W/MINERALS 1 TAB TABLET PO SCH (08:40)
[2022-08-12] MEDS: AMIODARONE HCL 200 MG TABLET PO SCH ×2 (08:42→17:17)
[2022-08-12] MEDS: METOPROLOL SUCCINATE 25 MG TAB.SR.24H PO SCH (08:42)
[2022-08-12] MEDS: ASCORBIC ACID 500 MG TABLET PO SCH (08:43)
[2022-08-12] MEDS: ASPIRIN EC 81 MG TABLET.DR PO SCH (08:43)
[2022-08-12] MEDS: FUROSEMIDE 20 MG/2 ML VIAL IV SCH ×2 (08:43→17:19)
[2022-08-12] MEDS: FINASTERIDE (5 MG) 5 MG TABLET PO SCH (08:43)
[2022-08-12] MEDS: DOCUSATE SODIUM 100 MG CAPSULE PO SCH ×3 (08:43→17:17)
[2022-08-12] MEDS: ENOXAPARIN SODIUM 40 MG/0.4 ML DISP.SYRIN SQ SCH (08:45)
[2022-08-12] MEDS: NICOTINE PATCH (14MG) 14 MG PATCH.TD24 TD SCH (08:49)
[2022-08-12] MEDS: PANTOPRAZOLE 40 MG TABLET.DR PO SCH (09:01)
[2022-08-12] MEDS: ENSURE ENLIVE 237 ML LIQUID (VANILLA) PO SCH (09:53)
--- NOTE | 2022-08-12 09:57 | NUR ---
MECHANICAL TEST ENGINEER NOTE CALLED PHARMACY X2 , NOTIFIED THAT [facility] NOT AVAILABLE YET STATED WILL BRING SOON THEY HAS MEDICATION Addendum: 08/12/22 at 1042 by SHAUN SANCHEZ RN rounds made ,all needs attended ,not in distress at this time
[2022-08-12] MEDS: methylPREDNISolone SOD SUCC 40 MG/ML VIAL IV SCH ×3 (10:32→17:19)
--- NOTE | 2022-08-12 11:00 | NUR ---
telecasting technician note abg done reported result to dr carvajal by rt olmstead
[2022-08-12 11:59] LABS: ABG OXYGEN SATURATION 89.3 % (92.0-98.5); ABG PCO2 64.1 mmHg (35.0-45.0); ABG PH 7.433 (7.350-7.450); ABG PO2 60.4 mmHg (75.0-100.0); AaDO2 151.1 mmHg; MetHb 0.3 % (0.0-1.5); O2Hb 88.1 % (94.0-97.0); SITE, ABG Right Brachial; VENT MODE, BG VENTI-MASK 40% FIO2
[2022-08-12 12:00] VITALS: BP 98/68
--- NOTE | 2022-08-12 12:51 | NUR ---
application dba note Dr. Macdonald at bedside. Patient's condition was updated, will continue to monitor.
--- NOTE | 2022-08-12 15:20 | NUR ---
telephone directory deliverer note rounds made resting comfortably still on venturi mask, no sob noted, will cont to monitor closely
[2022-08-12 16:00] VITALS: BP 101/69
--- NOTE | 2022-08-12 16:36 | NUR ---
administrative liaison note RT at bedside, patient doing breathing exercise, no in distress. Will monitor.
--- NOTE | 2022-08-12 18:27 | NUR ---
passementerie worker note Patient was in bed, alert and oriented. No SOB noted, still on venturi mask with 12L. His neighbor was at bedside, patient was having dinner. DVT pump was in place. All needs attended, urinated well. keep clean and dry. Call light within reach with bed in lowest position. Safety measures implemented and will continue to monitor.
[2022-08-12 20:00] VITALS: BP 112/70
[2022-08-12] MEDS: TAMSULOSIN 0.4 MG CAP.SR.24H PO SCH (21:10)
[2022-08-12] MEDS: ATORVASTATIN 10 MG TABLET PO SCH (21:11)
[2022-08-12] MEDS: QUETIAPINE FUMARATE 25 MG TABLET PO SCH (21:11)
[2022-08-12] MEDS: SENNOSIDES/DOCUSATE SODIUM 1 TAB TABLET PO SCH (21:11)
[2022-08-13] VITALS: BP 115/72
[2022-08-13 04:00] VITALS: BP 147/91
[2022-08-13] MEDS: ALBUTEROL FS 2.5 MG/0.5 ML VIAL.NEB NEB SCH ×5 (04:19→20:00)
[2022-08-13] MEDS: IPRATROPIUM NEB FS 0.5 MG/2.5 ML AMPUL.NEB NEB SCH ×5 (04:19→20:01)
--- NOTE | 2022-08-13 06:20 | NUR ---
RT NOTE PATIENT REFUSING BIPAP ALL NIGHT. EXPLAINED TO PATIENT THE BENEFITS OF USING THE BIPAP. PATIENT REFUSED DESPITE EXPLANATION. PT CLAIMED HE WOULD RATHER USE IT DURING THE DAY THAN AT NIGHT. PT CURRENTLY ON VENTURI MASK 40% 12LPM WITH SPO2 95%. PATIENT IS ALERT AND RESPONSIVE. BIPAP AT BEDSIDE.
--- NOTE | 2022-08-13 06:36 | NUR ---
END OF SHIFT, PATIENT AWAKE AT THIS TIME, CONT ON VENTURI MASK, PATIENT YELLING TRYING TO GET UP FROM BED, PATIENT NON COMPLIANT WITH CARE, REMOVING O2 MASK, REDIRECTION OF BEHAVIOR AND EDUCATION CONSTANTLY PROVIDED, PATIENT DOES NOT COOPERATE WITH CARE, STARTED PATIENT ON BILATERAL SOFT RESTRAINS, BED LOCKED AND IN LOWEST POSITION, CALL LIGHT WITHIN REACH, SIDE RAILS UP X3, WILL ENDORSE CONTINUITY OF CARE TO ONCOMING NURSE.
[2022-08-13 07:20] LABS: CALCIUM, SERUM 8.9 mg/dL (8.5-10.1); CHLORIDE 92 mmol/L (98-107); CREATININE 0.7 mg/dL (0.6-1.3); GLUCOSE 102 mg/dL (74-106); POTASSIUM 3.8 mmol/L (3.5-5.1); SODIUM SERUM 138 mmol/L (136-145); UREA NITROGEN, BLOOD 28 mg/dL (7-18)
--- NOTE | 2022-08-13 07:30 | NUR ---
RN Opening Note Patient AOx3 able to express his own concern. Patient shows no signs of discomfort or distress states he is doing good. Introduced myself to patient and discussed plan of care, patient verbalized understanding. PAtient asked to call and peak with her, was able to orient patient to current situation. All safety precautions taken, call light and table within reach, bed at lowest position.
[2022-08-13 08:00] VITALS: BP_SYST 113; BP_SYST 147; BP_DIAS 74; BP_DIAS 91
[2022-08-13] MEDS: PANTOPRAZOLE 40 MG TABLET.DR PO SCH (08:19)
[2022-08-13 08:33] LABS: CARBON DIOXIDE 44 mmol/L (21-32)
[2022-08-13] MEDS: FUROSEMIDE 20 MG/2 ML VIAL IV SCH (08:44)
[2022-08-13] MEDS: AMIODARONE HCL 200 MG TABLET PO SCH ×2 (08:47→17:12)
[2022-08-13] MEDS: ASCORBIC ACID 500 MG TABLET PO SCH (08:47)
[2022-08-13] MEDS: methylPREDNISolone SOD SUCC 40 MG/ML VIAL IV SCH ×3 (08:48→14:00)
[2022-08-13] MEDS: METOPROLOL SUCCINATE 25 MG TAB.SR.24H PO SCH (08:48)
[2022-08-13] MEDS: FINASTERIDE (5 MG) 5 MG TABLET PO SCH (08:48)
[2022-08-13] MEDS: DOCUSATE SODIUM 100 MG CAPSULE PO SCH ×3 (08:48→17:11)
[2022-08-13] MEDS: ASPIRIN EC 81 MG TABLET.DR PO SCH (08:48)
[2022-08-13] MEDS: MULTIVIT W/MINERALS 1 TAB TABLET PO SCH (08:48)
[2022-08-13] MEDS: NICOTINE PATCH (14MG) 14 MG PATCH.TD24 TD SCH (08:49)
[2022-08-13] MEDS: ENOXAPARIN SODIUM 40 MG/0.4 ML DISP.SYRIN SQ SCH (08:51)
[2022-08-13] MEDS: ENSURE ENLIVE 237 ML LIQUID (VANILLA) PO SCH (08:52)
[2022-08-13 12:00] VITALS: BP 108/72
[2022-08-13 16:00] VITALS: BP 123/85
--- NOTE | 2022-08-13 18:32 | NUR ---
RN Closing Report/ Patient AOx2-3, able to express his own concerns. Patient remained safe throughout shift. No signs or symptoms of distress. Re-oriented patient to current situation as needed. States he will use breathing machine of night if it makes things easier. ALl safety precautions taken, call light and table within reach. Patients called and requested status on patients health.
--- NOTE | 2022-08-13 19:20 | NUR ---
RN OPENING NOTE RECEIVED PT IN BED AWAKE, A/O 2-3, ON VENTURI MASK AT 12L, NO S/S OF ACUTE DISTRESS, TELE MONITOR READING SR HR 86, IV ACCESS LFA #20G, INTACT AND PATENT, ALL SAFETY MEASURES IN PLACE; BED LOCKED IN LOW POSITION, BED ALARM ON, CALL LIGHT WITHIN REACH, SIDE RAILS UP X3. WILL CONTINUE TO MONITOR THROUGHOUT SHIFT.
[2022-08-13 20:00] VITALS: BP 106/68
--- NOTE | 2022-08-13 20:08 | NUR ---
RT NOTE PT RECEIVED ON VENTURI MASK @ 40% ON 12 LPM. PT TOLERATING WELL. TX GIVEN, NO ADVERSE REACTIONS NOTED. PT REFUSING BIPAP X 3 AFTER EXPLAINING RISKS AND BENEFITS. EBONI DURAND NOTIFIED AND IS AWARE. NO RESPIRATORY DISTRESS NOTED AT THIS TIME.
--- NOTE | 2022-08-13 20:10 | NUR ---
RN NOTE PT REFUSED BIPAP, SATURATION GONE UP SINCE 1999 VITALS. PT TOLERATING VENTURI MASK WELL.
[2022-08-13] MEDS: ATORVASTATIN 10 MG TABLET PO SCH (22:19)
[2022-08-13] MEDS: TAMSULOSIN 0.4 MG CAP.SR.24H PO SCH (22:19)
[2022-08-13] MEDS: SENNOSIDES/DOCUSATE SODIUM 1 TAB TABLET PO SCH (22:19)
[2022-08-13] MEDS: QUETIAPINE FUMARATE 25 MG TABLET PO SCH (22:20)
[2022-08-14] VITALS: BP 115/82
[2022-08-14] MEDS: ALBUTEROL FS 2.5 MG/0.5 ML VIAL.NEB NEB SCH ×6 (00:11→19:44)
[2022-08-14] MEDS: IPRATROPIUM NEB FS 0.5 MG/2.5 ML AMPUL.NEB NEB SCH ×6 (00:11→19:44)
[2022-08-14 04:00] VITALS: BP 106/71
--- NOTE | 2022-08-14 07:09 | NUR ---
RN CLOSING NOTE PT IN BED AWAKE, A/O 2-3, ON VENTURI MASK AT 12L, NO S/S OF ACUTE DISTRESS, TELE MONITOR READING SR HR 86, IV ACCESS LFA #20G, INTACT AND PATENT, ALL DUE MEDS GIVEN.ALL SAFETY MEASURES IN PLACE; BED LOCKED IN LOW POSITION, BED ALARM ON, CALL LIGHT WITHIN REACH, SIDE RAILS UP X3. WILL ENDORSE TO MORNING NURSE FOR ODILON.
[2022-08-14 07:18] LABS: CALCIUM, SERUM 9.2 mg/dL (8.5-10.1); CREATININE 0.8 mg/dL (0.6-1.3)
[2022-08-14] MEDS: PANTOPRAZOLE 40 MG TABLET.DR PO SCH (07:30)
[2022-08-14 07:55] LABS: POTASSIUM 3.8 mmol/L (3.5-5.1)
[2022-08-14 08:00] VITALS: BP 129/79
--- NOTE | 2022-08-14 08:11 | NUR ---
RN NOTE PT RECEIVED ASLEEP IN BED, RESPONSIVE TO STIMULI. ON VENTURI MASK @ 12L, TOLERATING WELL. WITH IV ACCESS ON LFA G20 NO IVF. SAFETY MEASURES MAINTAINED. WILL CONT TO MONITOR.
--- NOTE | 2022-08-14 08:41 | NUR ---
RN NOTE CRITICAL LAB RESULTS CO2-46. WILL NOTIFY
[2022-08-14] MEDS: METOPROLOL SUCCINATE 25 MG TAB.SR.24H PO SCH (09:00)
[2022-08-14] MEDS: ASPIRIN EC 81 MG TABLET.DR PO SCH (09:00)
[2022-08-14] MEDS: DOCUSATE SODIUM 100 MG CAPSULE PO SCH ×3 (09:00→17:00)
[2022-08-14] MEDS: MULTIVIT W/MINERALS 1 TAB TABLET PO SCH (09:00)
[2022-08-14] MEDS: ENSURE ENLIVE 237 ML LIQUID (VANILLA) PO SCH (09:00)
[2022-08-14] MEDS: FINASTERIDE (5 MG) 5 MG TABLET PO SCH (09:00)
[2022-08-14] MEDS: ASCORBIC ACID 500 MG TABLET PO SCH (09:00)
[2022-08-14] MEDS: AMIODARONE HCL 200 MG TABLET PO SCH ×2 (10:12→17:14)
[2022-08-14] MEDS: NICOTINE PATCH (14MG) 14 MG PATCH.TD24 TD SCH (10:12)
[2022-08-14] MEDS: methylPREDNISolone SOD SUCC 40 MG/ML VIAL IV SCH (10:13)
[2022-08-14] MEDS: ENOXAPARIN SODIUM 40 MG/0.4 ML DISP.SYRIN SQ SCH (10:15)
[2022-08-14 12:00] VITALS: BP 116/62
[2022-08-14 12:08] LABS: BASOPHILS # (AUTO) 0.3 K/uL (0.0-0.2); BASOPHILS % (AUTO) 1.7 % (0.0-2.0); EOSINOPHILS % (AUTO) 0.1 % (0.0-6.0); HEMATOCRIT 38 % (39-51); HEMOGLOBIN 11.7 g/dL (13.5-17.5); LYMPHOCYTES # (AUTO) 0.4 K/uL (0.8-4.8); LYMPHOCYTES % (AUTO) 2.3 % (20.0-44.0); MEAN CORPUSCULAR HGB CONC 31 g/dl (31.0-36.0); MEAN CORPUSCULAR VOLUME 83 fL (80-96); MONOCYTES # (AUTO) 1.5 K/uL (0.1-1.30); MONOCYTES % (AUTO) 9.4 % (2.0-12.0); NEUTROPHILS # (AUTO) 13.4 K/uL (1.8-8.9); NEUTROPHILS % (AUTO) 86.5 % (43.0-81.0); PLATELET COUNT (AUTO) 201 K/uL (150-450); RED BLOOD CELL COUNT(AUTO) 4.53 MIL/uL (4.5-6.0); WHITE BLOOD COUNT (AUTO) 15.5 K/uL (4.3-11.0)
[2022-08-14] MEDS ORDERED: PIPERACILLIN /TAZOBACTAM 3.375 G in IV D5W 50 ML IV SCH (14:00)
[2022-08-14 16:00] VITALS: BP 115/71
--- NOTE | 2022-08-14 19:13 | NUR ---
RN NOTE PT RECEIVED ASLEEP IN BED, RESPONSIVE TO STIMULI. ON VENTURI MASK @ 12L, TOLERATING WELL. WITH IV ACCESS ON LFA G20 NO IVF. AM/PM CARE RENDERED. SAFETY MEASURES MAINTAINED. WILL CONT TO MONITOR. WILL ENDORSE TO NEXT SHIFT.
--- NOTE | 2022-08-14 19:30 | NUR ---
RECEIVED PT IN BED AWAKE, A/O 2-3, ON VENTURI MASK AT 12L, O2 SAT AT 81%. CHARGE NURSE INFORMED, RT INFORMED, PLACED ON BIPAP. TELE MONITOR READING SR HR AT 86, IV ACCESS LFA #20G. BILATERAL SOFT WRIST RESTRAINTS IN PLACE. CIRCULATION CHECKED. ALL SAFETY MEASURES IN PLACE; BED LOCKED IN LOW POSITION, BED ALARM ON, CALL LIGHT WITHIN REACH, SIDE RAILS UP X3. WILL CONTINUE TO MONITOR AND CONTINUE PLAN OF CARE.
[2022-08-14 20:00] VITALS: BP 132/74
[2022-08-14] MEDS: PIPERACILLIN /TAZOBACTAM 3.375 G in IV D5W 100 ML IV SCH (21:45)
[2022-08-14] MEDS: TAMSULOSIN 0.4 MG CAP.SR.24H PO SCH (21:45)
[2022-08-14] MEDS: SENNOSIDES/DOCUSATE SODIUM 1 TAB TABLET PO SCH (21:46)
[2022-08-14] MEDS: QUETIAPINE FUMARATE 25 MG TABLET PO SCH (21:46)
[2022-08-14] MEDS: ATORVASTATIN 10 MG TABLET PO SCH (21:46)
[2022-08-15] VITALS: BP 148/88
[2022-08-15] MEDS: IPRATROPIUM NEB FS 0.5 MG/2.5 ML AMPUL.NEB NEB SCH ×7 (00:17→23:30)
[2022-08-15] MEDS: ALBUTEROL FS 2.5 MG/0.5 ML VIAL.NEB NEB SCH ×7 (00:17→23:30)
[2022-08-15 04:00] VITALS: BP 128/80
[2022-08-15] MEDS: PIPERACILLIN /TAZOBACTAM 3.375 G in IV D5W 100 ML IV SCH ×3 (04:18→21:45)
--- NOTE | 2022-08-15 04:32 | NUR ---
RT called to bedside for low o2 sat on 12L venti mask. abg done. placed on bipap. settings: 15/5 R 20 40%. abg done 1 hr after placed on bipap.increased fio2 to 50% post abg results. pt tolerating bipap well throughout shift.
[2022-08-15 05:58] LABS: ABG OXYGEN SATURATION 85.5 % (92.0-98.5); ABG PCO2 61.8 mmHg (35.0-45.0); ABG PH 7.475 (7.350-7.450); ABG PO2 51.7 mmHg (75.0-100.0); AaDO2 162.4 mmHg; COHb 1.3 % (0.5-1.5); MetHb 0.3 % (0.0-1.5); O2Hb 84.1 % (94.0-97.0); SITE, ABG Right Radial; VENT MODE, BG Bipap 15/5 RR 20 40%
--- NOTE | 2022-08-15 07:03 | NUR ---
PT IN BED AWAKE, A/O 2-3, ON BIPAP AT 12L 40%, O2 SAT AT97%. TELE MONITOR READING SR HR AT 86, IV ACCESS LFA #20G. BILATERAL SOFT WRIST RESTRAINTS IN PLACE. CIRCULATION CHECKED. ALL SAFETY MEASURES IN PLACE; BED LOCKED IN LOW POSITION, BED ALARM ON, CALL LIGHT WITHIN REACH, SIDE RAILS UP X3. WILL ENDORSE TO NEXT NURSE ON DUTY FOR CONTINUITY OF CARE.
[2022-08-15 07:09] LABS: CREATININE 0.7 mg/dL (0.6-1.3); POTASSIUM 3.8 mmol/L (3.5-5.1)
[2022-08-15 08:00] VITALS: BP 120/76
[2022-08-15] MEDS: PANTOPRAZOLE 40 MG TABLET.DR PO SCH (08:17)
[2022-08-15] MEDS: ASPIRIN EC 81 MG TABLET.DR PO SCH (09:04)
[2022-08-15] MEDS: MULTIVIT W/MINERALS 1 TAB TABLET PO SCH (09:04)
[2022-08-15] MEDS: DOCUSATE SODIUM 100 MG CAPSULE PO SCH ×3 (09:05→18:11)
[2022-08-15] MEDS: METOPROLOL SUCCINATE 25 MG TAB.SR.24H PO SCH (09:05)
[2022-08-15] MEDS: AMIODARONE HCL 200 MG TABLET PO SCH ×2 (09:05→18:11)
[2022-08-15] MEDS: FINASTERIDE (5 MG) 5 MG TABLET PO SCH (09:06)
[2022-08-15] MEDS: ENSURE ENLIVE 237 ML LIQUID (VANILLA) PO SCH (09:06)
[2022-08-15] MEDS: methylPREDNISolone SOD SUCC 40 MG/ML VIAL IV SCH (09:06)
[2022-08-15] MEDS: ASCORBIC ACID 500 MG TABLET PO SCH (09:07)
[2022-08-15] MEDS: NICOTINE PATCH (14MG) 14 MG PATCH.TD24 TD SCH (09:07)
[2022-08-15] MEDS: ENOXAPARIN SODIUM 40 MG/0.4 ML DISP.SYRIN SQ SCH (09:19)
[2022-08-15 12:00] VITALS: BP 106/61
[2022-08-15] MEDS ORDERED: Z GUARD REMEDY 4 OZ OINT TP PRN (14:00)
[2022-08-15 16:00] VITALS: BP 120/72
--- NOTE | 2022-08-15 19:00 | NUR ---
RN CLOSING NOTE PT IN BED AWAKE, A/O 3-4, ON VENTURI MASK AT 12L, bipap 40% to 45%, NO S/S OF ACUTE DISTRESS, TELE MONITOR READING SR HR 88, IV ACCESS LFA #20G, INTACT AND PATENT, ALL DUE MEDS GIVEN. ALL SAFETY MEASURES IN PLACE; BED LOCKED IN LOW POSITION, BED ALARM ON, CALL LIGHT WITHIN REACH, SIDE RAILS UP X3. WILL ENDORSE TO THE NIGHT NURSE FOR CONTINUE OF CARE.
--- NOTE | 2022-08-15 19:10 | NUR ---
RN NOTES RECEIVED PT FOR CONTINUITY OF CARE. PATIENT A/OX3-4 IN NO S/SX OF ACUTE DISTRESS AT THIS TIME; CURRENTLY ON VENTI MASK 12L FIO2 40%; WITH 02 SAT >92% AT THIS TIME. WITH IV ACCESS ON L FA #20 PATENT, INTACT AND FLUSHING WELL. WILL ENSURE SAFETY MEASURES WITHIN THE SHIFT. PATIENT BED ALARM IS ON. HEAD OF BED ELEVATED. BED IS LOCKED, IN LOWEST POSITION AND SIDE RAILS UP. CALL LIGHT WITHIN REACH OF THE PATIENT. WILL CONTINUE TO MONITOR AND REASSESS FOR ANY CHANGES AND WILL CARRY OUT ANY ONGOING AND ACTIVE MD ORDER.
[2022-08-15 20:00] VITALS: BP 133/84
--- NOTE | 2022-08-15 20:15 | NUR ---
RN NOTES PER RT ENDORSEMENT, PT REFUSED BIPAP, EXPLAINED RISK AND BENEFITS BUT PT STILL REFUSED. RN ACKNOWLEDGED. PT STILL ON VENTURI MASK 12L 40% FIO2. WILL CONTINUE TO MONITOR.
--- NOTE | 2022-08-15 20:29 | NUR ---
RT pt refused bipap. explained why pt should go on bipap. pt refused still. notified jonathan navarrete
[2022-08-15] MEDS: QUETIAPINE FUMARATE 25 MG TABLET PO SCH (21:45)
[2022-08-15] MEDS: ATORVASTATIN 10 MG TABLET PO SCH (21:45)
[2022-08-15] MEDS: SENNOSIDES/DOCUSATE SODIUM 1 TAB TABLET PO SCH (21:45)
[2022-08-15] MEDS: TAMSULOSIN 0.4 MG CAP.SR.24H PO SCH (21:45)
[2022-08-16] VITALS: BP 101/69
[2022-08-16] MEDS: IPRATROPIUM NEB FS 0.5 MG/2.5 ML AMPUL.NEB NEB SCH ×6 (03:30→23:10)
[2022-08-16] MEDS: ALBUTEROL FS 2.5 MG/0.5 ML VIAL.NEB NEB SCH ×6 (03:30→23:10)
[2022-08-16 04:00] VITALS: BP 126/67
--- NOTE | 2022-08-16 04:00 | NUR ---
RN NOTES PATIENT REMAINED TO BE IN NO SIGNS OF ACUTE RESPIRATORY DISTRESS; ON VENTURI MASK 12L 40%FIO2 ,SAFE ENVIRONMENT MAINTAINED FOR PT. AM PATIENT CARE ASSISTANCE RENDERED. WILL CONTINUE TO MONITOR AND REASSESS FOR ANY CHANGES THROUGHOUT THE SHIFT.
[2022-08-16] MEDS: PIPERACILLIN /TAZOBACTAM 3.375 G in IV D5W 100 ML IV SCH ×3 (04:59→21:11)
--- NOTE | 2022-08-16 06:26 | NUR ---
RN CLOSING NOTE: PATIENT REMAINS IN ROOM IN NO SIGNS OF RESPIRATORY DISTRESS, PATIENT STILL ON 12L OF 02 40% FIO2 VIA VENTURI MASK;TOLERATING WELL SATURATING @ 90-97% DURING THE SHIFT. PT REFUSED BIPAP LAST NIGHT.SAFETY MEASURES IMPLEMENTED, BED IN LOWEST POSITION, LOCKED, SIDE RAILS UP, CALL LIGHT WITHIN REACH. ALL NEEDS AND ORDERS ADDRESSED DURING THE SHIFT. IV ACCESS MAINTAINED INTACT, SECURED AND FLUSHING WELL. ALL DUE MEDS GIVEN ORDERED & SCHEDULED ; PATIENT TOLERATED WELL. PATIENT KEPT CLEAN AND COMFORTABLE WITHIN THE SHIFT. PATIENT ENDORSED TO INCOMING SHIFT RN WITH STABLE VITAL SIGN AND FOR CONTINUITY OF CARE.
--- NOTE | 2022-08-16 07:19 | NUR ---
RN NOTES RECEIVED PT FOR CONTINUITY OF CARE. PATIENT A/OX3-4 IN NO S/SX OF ACUTE DISTRESS AT THIS TIME; CURRENTLY ON VENTI MASK 12L FIO2 40%; AT THIS TIME. WITH IV ACCESS ON L FA #20 PATENT, INTACT AND FLUSHING WELL. PATIENT BED ALARM IS ON. HEAD OF BED ELEVATED. BED IS LOCKED, IN LOWEST POSITION AND SIDE RAILS UP. CALL LIGHT WITHIN REACH OF THE PATIENT.
[2022-08-16 08:00] VITALS: BP 110/67
[2022-08-16] MEDS: methylPREDNISolone SOD SUCC 40 MG/ML VIAL IV SCH (09:29)
[2022-08-16] MEDS: NICOTINE PATCH (14MG) 14 MG PATCH.TD24 TD SCH (09:30)
[2022-08-16] MEDS: ASCORBIC ACID 500 MG TABLET PO SCH (09:30)
[2022-08-16] MEDS: PANTOPRAZOLE 40 MG TABLET.DR PO SCH (09:30)
[2022-08-16] MEDS: MULTIVIT W/MINERALS 1 TAB TABLET PO SCH (09:30)
[2022-08-16] MEDS: ASPIRIN EC 81 MG TABLET.DR PO SCH (09:31)
[2022-08-16] MEDS: METOPROLOL SUCCINATE 25 MG TAB.SR.24H PO SCH (09:31)
[2022-08-16] MEDS: AMIODARONE HCL 200 MG TABLET PO SCH ×2 (09:31→17:20)
[2022-08-16] MEDS: FINASTERIDE (5 MG) 5 MG TABLET PO SCH (09:32)
[2022-08-16] MEDS: ENSURE ENLIVE 237 ML LIQUID (VANILLA) PO SCH (09:32)
[2022-08-16] MEDS: DOCUSATE SODIUM 100 MG CAPSULE PO SCH ×3 (09:32→17:00)
[2022-08-16] MEDS: ENOXAPARIN SODIUM 40 MG/0.4 ML DISP.SYRIN SQ SCH (09:34)
[2022-08-16 12:00] VITALS: BP 125/75
[2022-08-16 16:00] VITALS: BP 135/82
--- NOTE | 2022-08-16 18:46 | NUR ---
RN CLOSING NOTE: PATIENT REMAINS IN ROOM IN NO SIGNS OF RESPIRATORY DISTRESS, PATIENT STILL ON 12L OF 02 40% FIO2 VIA VENTURI MAS.K PT REFUSED BIPAP .SAFETY MEASURES IMPLEMENTED, BED IN LOWEST POSITION, LOCKED, SIDE RAILS UP, CALL LIGHT WITHIN REACH. ALL NEEDS AND ORDERS ADDRESSED DURING THE SHIFT. IV ACCESS MAINTAINED INTACT, SECURED AND FLUSHING WELL. ALL DUE MEDS GIVEN ORDERED & SCHEDULED ; PATIENT TOLERATED WELL. PATIENT KEPT CLEAN AND COMFORTABLE WITHIN THE SHIFT. PATIENT ENDORSED TO INCOMING SHIFT RN WITH STABLE VITAL SIGN AND FOR CONTINUITY OF CARE.
--- NOTE | 2022-08-16 19:15 | NUR ---
RN NOTES RECEIVED PT FOR CONTINUITY OF CARE. PATIENT A/OX3-4 IN NO S/SX OF ACUTE DISTRESS AT THIS TIME; CURRENTLY ON VENTURI MASK 12L FIO2 40%; WITH 02 SAT >92% AT THIS TIME. WITH IV ACCESS ON L FA #20 PATENT, INTACT AND FLUSHING WELL. WILL ENSURE SAFETY MEASURES WITHIN THE SHIFT. PATIENT BED ALARM IS ON. HEAD OF BED ELEVATED. BED IS LOCKED, IN LOWEST POSITION AND SIDE RAILS UP. CALL LIGHT WITHIN REACH OF THE PATIENT. WILL CONTINUE TO MONITOR AND REASSESS FOR ANY CHANGES AND WILL CARRY OUT ANY ONGOING AND ACTIVE MD ORDER.
[2022-08-16 20:00] VITALS: BP 122/80
[2022-08-16] MEDS: SENNOSIDES/DOCUSATE SODIUM 1 TAB TABLET PO SCH (21:11)
[2022-08-16] MEDS: ATORVASTATIN 10 MG TABLET PO SCH (21:12)
[2022-08-16] MEDS: QUETIAPINE FUMARATE 25 MG TABLET PO SCH (21:12)
[2022-08-16] MEDS: TAMSULOSIN 0.4 MG CAP.SR.24H PO SCH (21:13)
[2022-08-17] VITALS (7 sets, daily range): BP systolic 96–139; BP diastolic 58–82
[2022-08-17] MEDS: ACETAMINOPHEN 325 MG TABLET PO PRN (00:27)
[2022-08-17] MEDS: IPRATROPIUM NEB FS 0.5 MG/2.5 ML AMPUL.NEB NEB SCH ×5 (04:02→19:37)
[2022-08-17] MEDS: ALBUTEROL FS 2.5 MG/0.5 ML VIAL.NEB NEB SCH ×5 (04:02→19:37)
[2022-08-17] MEDS: PIPERACILLIN /TAZOBACTAM 3.375 G in IV D5W 100 ML IV SCH ×3 (05:07→21:42)
--- NOTE | 2022-08-17 06:51 | NUR ---
RN CLOSING NOTE: PATIENT REMAINS IN ROOM IN NO SIGNS OF RESPIRATORY DISTRESS, PATIENT STILL ON 12L OF 02 40% FIO2 VIA VENTURI MASK;TOLERATING WELL SATURATING @ 93-97% DURING THE SHIFT. PT REFUSED BIPAP LAST NIGHT. SAFETY MEASURES IMPLEMENTED, BED IN LOWEST POSITION, LOCKED, SIDE RAILS UP, CALL LIGHT WITHIN REACH. ALL NEEDS AND ORDERS ADDRESSED DURING THE SHIFT. IV ACCESS MAINTAINED INTACT, SECURED AND FLUSHING WELL. ALL DUE MEDS GIVEN ORDERED & SCHEDULED ; PATIENT TOLERATED WELL. PATIENT KEPT CLEAN AND COMFORTABLE WITHIN THE SHIFT. PATIENT ENDORSED TO INCOMING SHIFT RN WITH STABLE VITAL SIGN AND FOR CONTINUITY OF CARE.
--- NOTE | 2022-08-17 07:52 | NUR ---
RN OPENING NOTE PATIENT RECEIVED IN BED, AO X 4, ABLE TO RESPONDS ALL STIMULI. IN NO ACUTE DISTRESS NOTED. RESPIRATORY EVEN AND UNLABORED ON VENTURI MASC AT 12Ls 40% FIO2. SKIN IS WARM TO TOUCH, KEEP CLEAN/DRY. KEPT ELEVATED HOB FOR ENSURE AIRWAY AND ASPIRATION PRECAUTION, ALSO LOWEST POSITION OF THE BED, S/R UP X 3, BED ALARM IS ON AT ALL THE TIMES. ALL SAFETY PRECAUTION APPLIED. CALL LIGHT WITHIN REACH, WILL CONTINUE TO MONITOR.
[2022-08-17] MEDS: METOPROLOL SUCCINATE 25 MG TAB.SR.24H PO SCH (09:44)
[2022-08-17] MEDS: ENOXAPARIN SODIUM 40 MG/0.4 ML DISP.SYRIN SQ SCH (09:45)
[2022-08-17] MEDS: DOCUSATE SODIUM 100 MG CAPSULE PO SCH ×3 (09:45→17:11)
[2022-08-17] MEDS: methylPREDNISolone SOD SUCC 40 MG/ML VIAL IV SCH (09:45)
[2022-08-17] MEDS: NICOTINE PATCH (14MG) 14 MG PATCH.TD24 TD SCH (09:46)
[2022-08-17] MEDS: PANTOPRAZOLE 40 MG TABLET.DR PO SCH (09:46)
[2022-08-17] MEDS: MULTIVIT W/MINERALS 1 TAB TABLET PO SCH (09:46)
[2022-08-17] MEDS: ASCORBIC ACID 500 MG TABLET PO SCH (09:46)
[2022-08-17] MEDS: FINASTERIDE (5 MG) 5 MG TABLET PO SCH (09:46)
[2022-08-17] MEDS: ASPIRIN EC 81 MG TABLET.DR PO SCH (09:46)
[2022-08-17] MEDS: ENSURE ENLIVE 237 ML LIQUID (VANILLA) PO SCH (09:47)
[2022-08-17] MEDS: AMIODARONE HCL 200 MG TABLET PO SCH ×2 (09:47→17:11)
--- NOTE | 2022-08-17 18:05 | NUR ---
RN CLOSING NOTE PATIENT IN BED RESTING. IN NO ACUTE DISTRESS NOTED. RESPIRATORY EVEN AND UNLABORED ON VENTURI MAST AT 12Ls. SKIN IS WARM TO TOUCH, KEEP CLEAN/DRY. KEPT ELEVATED HOB FOR ENSURE AIRWAY AND ASPIRATION PRECAUTION. BED IN LOWEST POSITION AND LOCKED. BED ALARM IS ON AT ALL THE TIMES. ALL SAFETY MEASURED IN PLACED. CALL LIGHT WITHIN REACH, WILL ENDORSED TO NEXT SHIFT.
--- NOTE | 2022-08-17 19:25 | NUR ---
RN OPENING NOTE RECEIVED PATIENT IN BED; AWAKE, A/OX 3-4. ON VENTURI MASK 12L FIO2 40%; WITH 02 SATTING 92% . IN NO ACUTE DISTRESS. ON TELEMETRY MONITORING SINUS RHYTHM HR-90 BPM. WITH IV ACCESS ON LEFT FOREARM 20G: PATENT, INTACT AND FLUSHING WELL. SAFETY MEASURES IMPLEMENTED: HEAD OF BED ELEVATED, CALL LIGHT AND TABLE WITHIN REACH, SIDE RAILS UP X 3. BED IN LOWEST LOCKED POSITION. WILL CONTINUE PLAN OF CARE.
--- NOTE | 2022-08-17 22:27 | NUR ---
RT NOTE RECEIVED CALL FOR PT IN DISTRESS. PT ALREADY HAD REMOVED VENTURI MASK UPON ARRIVAL. PT PLACED ON BIPAP WITH SETTINGS OF 15/5, 20, 100%. ASSISTANT CASINO SHIFT MANAGER AND RN @ BEDSIDE. STAT ABG DONE AND REPORTED RESULTS TO NURSE. PT TRANSFERRED TO ICU. WILL CONTINUE TO MONITOR CLOSELY.
[2022-08-17] MEDS: SENNOSIDES/DOCUSATE SODIUM 1 TAB TABLET PO SCH (22:45)
[2022-08-17] MEDS: ATORVASTATIN 10 MG TABLET PO SCH (22:45)
[2022-08-17] MEDS: TAMSULOSIN 0.4 MG CAP.SR.24H PO SCH (22:45)
[2022-08-17] MEDS: QUETIAPINE FUMARATE 25 MG TABLET PO SCH (22:45)
--- NOTE | 2022-08-17 22:51 | NUR ---
WELDING SYSTEMS AND EQUIPMENT REPAIRER PATIENT TRANSFERRED TO ICU 251
--- NOTE | 2022-08-17 23:25 | NUR ---
METER CHANGES RECORDS CLERK NOTE 5 - PATIENT FOUND TO BE OFF VENTURI MASK, UNRESPONSIVE AND PAPER WHITE. CALLED RT. 2226 - FULL TEAM AT BEDSIDE - WAGNER NURSING MANAGER SOFTWARE, ED ICU CHARGE NURSE, SAUNDRA Kirkpatrick DOU CHARGE NURSE, JALEN DUVALL RN, KAMLESH RESP THERAPIST + TEAM, 2227 - ACCUCHECK 140 MG/DL, LUPE NOBLE NOTIFIED 2230 - LUPE NOBLE CALLED BACK, STAT ABG DONE. 2234 - END OF ACCESS TECH. PATIENT TO BE TRANSFERRED TO ICU RM 255.
--- NOTE | 2022-08-17 23:45 | NUR ---
RN NOTE VENTURI MASK WAS REMOVED BY PATIENT. PATIENT IS UNRESPONSIVE AND PALE. CALLED CHARGE NURSE AND RT. FULL MEDICAL TEAM @ BEDSIDE: WAGNER NURSING COMMERCIAL REPRESENTATIVE, ED ICU CHARGE NURSE, SAUNDRA Kirkpatrick DOU CHARGE NURSE, KAMLESH CANNON. VS CHECKED: T 98, UT 79, RR 22, O2 SAT 99%, BP 137/84 MM HG. BS-140 MG/DL. LEATHER WHITENER HOSPITALIST LUPE NOBLE MADE AWARE. STAT ABG DONE ORDERED. PATIENT WHEELED TO ICU ROOM 255. ENDORSED PATIENT TO [facility] FOR ODILON.
[2022-08-18] VITALS (35 sets, daily range): BP systolic 100–139; BP diastolic 51–85
--- NOTE | 2022-08-18 | NUR ---
EDUCATION FACULTY MEMBER RCD PT FROM [facility] NON RESPONSIVE TO PAIN PUPILS 1MM SLUGGISH. PT ON BIPAP. BSWR IN PLACE. WHEN ASSESSING PT FOUND 4 WHITE ROUND PILLS WITH IMPRINT EP [phone].
[2022-08-18] MEDS: IPRATROPIUM NEB FS 0.5 MG/2.5 ML AMPUL.NEB NEB SCH ×7 (00:24→23:43)
[2022-08-18] MEDS: ALBUTEROL FS 2.5 MG/0.5 ML VIAL.NEB NEB SCH ×7 (00:24→23:43)
--- NOTE | 2022-08-18 00:30 | NUR ---
REHABILITATION TEACHER PT REMAINS UNRESPONSIVE; BSWR REMOVED AT THIS TIME.
[2022-08-18] MEDS: PIPERACILLIN /TAZOBACTAM 3.375 G in IV D5W 100 ML IV SCH ×3 (04:01→21:15)
[2022-08-18] MEDS: IV NS 0.9% 250 ML IV PRN (04:26)
--- NOTE | 2022-08-18 05:42 | NUR ---
RT NOTE PT REMOVED BIPAP. PT PLACED ON VENTURI MASK @ 15LPM ON 50%. RN HILL NOTIFIED AND IS AWARE. PT AWAKE AND RESPONDING.
--- NOTE | 2022-08-18 05:45 | NUR ---
TRIMMER MACHINE OPERATOR PT WOKE UP CONFUSED AND REMOVED BIPAP PT PLACED ON VENTURI MASK AT 15 L; PT OBSERVED WHILE ON VENTURI MASK WITH NUMEROUS ATTEMPTS AT REMOVING MASK; BSWR PLACED AT THIS TIME.
--- NOTE | 2022-08-18 07:10 | NUR ---
RN NOTES RECEIVED PT ON BED , A/Ox3, FOLLOW COMMAND, ON VENTURI MASK AT 50%, ON TELE SR HR IN 80'S , PT TAKES OFF HIS MASK AT TIMES , REINFORCE TEACHING , B[place]. SOFT RESTRAINS ON FOR PT SAFETY , IV SITE CDI, SR UP X3, CALL LIGHT WITHIN EASY REACH, BED LOCKED AND IN LOWEST POSITION, CONTINUE TO MONITOR.
[2022-08-18] MEDS: NICOTINE PATCH (14MG) 14 MG PATCH.TD24 TD SCH (08:22)
[2022-08-18] MEDS: methylPREDNISolone SOD SUCC 40 MG/ML VIAL IV SCH (08:22)
[2022-08-18] MEDS: DOCUSATE SODIUM 100 MG CAPSULE PO SCH ×3 (08:23→17:09)
[2022-08-18] MEDS: FINASTERIDE (5 MG) 5 MG TABLET PO SCH (08:23)
[2022-08-18] MEDS: ASPIRIN EC 81 MG TABLET.DR PO SCH (08:23)
[2022-08-18] MEDS: AMIODARONE HCL 200 MG TABLET PO SCH ×2 (08:23→17:09)
[2022-08-18] MEDS: PANTOPRAZOLE 40 MG TABLET.DR PO SCH (08:23)
[2022-08-18] MEDS: MULTIVIT W/MINERALS 1 TAB TABLET PO SCH (08:24)
[2022-08-18] MEDS: ASCORBIC ACID 500 MG TABLET PO SCH (08:24)
[2022-08-18] MEDS: METOPROLOL SUCCINATE 25 MG TAB.SR.24H PO SCH (08:24)
[2022-08-18] MEDS: ENOXAPARIN SODIUM 40 MG/0.4 ML DISP.SYRIN SQ SCH (08:25)
[2022-08-18] MEDS: ENSURE ENLIVE 237 ML LIQUID (VANILLA) PO SCH (08:28)
[2022-08-18 09:06] LABS: BASOPHILS % (AUTO) 0.2 % (0.0-2.0); EOSINOPHILS % (AUTO) 0.2 % (0.0-6.0); HEMATOCRIT 29 % (39-51); LYMPHOCYTES # (AUTO) 0.5 K/uL (0.8-4.8); MEAN CORPUSCULAR HGB CONC 31 g/dl (31.0-36.0); MEAN CORPUSCULAR VOLUME 83 fL (80-96); MONOCYTES # (AUTO) 0.9 K/uL (0.1-1.30); MONOCYTES % (AUTO) 8.8 % (2.0-12.0); NEUTROPHILS # (AUTO) 8.6 K/uL (1.8-8.9); NEUTROPHILS % (AUTO) 85.8 % (43.0-81.0); PLATELET COUNT (AUTO) 162 K/uL (150-450); RED BLOOD CELL COUNT(AUTO) 3.53 MIL/uL (4.5-6.0); WHITE BLOOD COUNT (AUTO) 10.1 K/uL (4.3-11.0)
[2022-08-18 09:32] LABS: ABG BASE EXCESS 21.8 mmol/L; ABG OXYGEN SATURATION 53.8 % (92.0-98.5); ABG PCO2 74.3 mmHg (35.0-45.0); ABG PO2 29.3 mmHg (75.0-100.0); AaDO2 243.6 mmHg; COHb 0.6 % (0.5-1.5); MetHb 0.1 % (0.0-1.5); O2Hb 53.4 % (94.0-97.0); SITE, ABG Left Radial; VENT MODE, BG venturi 50%
[2022-08-18 11:49] LABS: CALCIUM, SERUM 8.7 mg/dL (8.5-10.1); CREATININE 0.7 mg/dL (0.6-1.3); POTASSIUM 3.8 mmol/L (3.5-5.1)
--- NOTE | 2022-08-18 12:00 | NUR ---
RN NOTES PT CONTINUE TO PULL ON HIS VENTI MASK WHEN [place]. SOFT WRIST RESTRAINS GET RELEASED . REINFORCE TEACHING , CONTINUE TO MONITOR .
--- NOTE | 2022-08-18 18:00 | NUR ---
RN NOTES PT REMAINS ON VENTI MASK , O2 SAT IN LOW 90'S , A/Ox3, NO SIGNIFICANT CHANGES NOTED ON THIS SHIT , WILL ENDORSE TO TIGER MACHINE OPERATOR NURSE FOR CONTINUITY OF CARE .
--- NOTE | 2022-08-18 19:30 | NUR ---
RN NOTE RECEIVED PT IN BED , A/O X 2-3, ABLE TO MAKE NEEDS KNOWN. ON VENTURI MASK AT 40%, ON TELE SR HR IN 80'S. NO S/SX OF ACUTE RESPI DISTRESS NOTED AT THIS TIME. IV ACCESS NOTED ON IVONE ML AND LFA RUNNING NS TKO. BILATERAL SOFT WRIST RESTRAINTS IN PLACE FOR PT SAFETY, BECAUSE HE KEEPS TAKING OFF HIS MASK. ALL SAFETY MEASURES IN PLACE: BED LOCKED IN LOW POSITION. BED ALARM ON , CALL LIGHT WITHIN EASY REACH. WILL CONTINUE TO MONITOR.
[2022-08-18] MEDS: TAMSULOSIN 0.4 MG CAP.SR.24H PO SCH (21:15)
[2022-08-18] MEDS: SENNOSIDES/DOCUSATE SODIUM 1 TAB TABLET PO SCH (21:15)
[2022-08-18] MEDS: QUETIAPINE FUMARATE 25 MG TABLET PO SCH (21:16)
[2022-08-18] MEDS: ATORVASTATIN 10 MG TABLET PO SCH (21:16)
--- NOTE | 2022-08-18 22:02 | NUR ---
RT NOTE PT REFUSING BIPAP AT THIS TIME. RN KSEINA AWARE. NO DISTRESS NOTED. PT REMAINS ON VENTURI MASK @ 12 LPM ON 40%. WILL CONTINUE TO MONITOR.
[2022-08-19] VITALS (25 sets, daily range): BP systolic 98–132; BP diastolic 55–80
[2022-08-19] MEDS: IV NS 0.9% 250 ML IV PRN (02:01)
[2022-08-19] MEDS: IPRATROPIUM NEB FS 0.5 MG/2.5 ML AMPUL.NEB NEB SCH ×6 (04:19→23:07)
[2022-08-19] MEDS: ALBUTEROL FS 2.5 MG/0.5 ML VIAL.NEB NEB SCH ×6 (04:19→23:07)
--- NOTE | 2022-08-19 04:39 | NUR ---
RT NOTE PT TOLERATING VENTURI MASK @ 40% WELL. NO RESPIRATORY DISTRESS NOTED. PT AWAKE/ALERT AND RESPONDING TO COMMANDS. SPO2 88-90%. PT MONITORED CLOSELY.
[2022-08-19] MEDS: PIPERACILLIN /TAZOBACTAM 3.375 G in IV D5W 100 ML IV SCH ×3 (04:56→21:37)
--- NOTE | 2022-08-19 07:10 | NUR ---
DISC PAD GRINDER OPENING NOTE: RECEIVED PT. IN BED, AWAKE, AOX3, NO COMPLAINTS OF PAIN/DISCOMFORT. ON VENTURI MASK AT 15L/MIN, SATURATING AT 86% AT THIS TIME. DR. KATHY CORDOVA WITH O2 SAT OF 88-90%. MANA[employer] READS NSR WITH BBB AND 1ST DEGREE HB WITH HR OF 88 BPM AT THIS TIME. PT. HAS BILATERAL HEEL REDNESS AND BLAYNE SACRAL EXCORIATION, WILL OFFLOAD AND APPLY MEPILEX FOR PROTECTION. PT. ON SOFT BILATERAL RESTRAINTS DUE TO REMOVAL OF VENTURI MASK, PALPABLE PULSES & CAP REFILL < 3 SECS NOTED ON ALL EXTREMITIES. IV ACCESS ON IVONE MIDLINE, PATENT WITH NS TKO RUNNING; LEFT FOREARM #20G, PATENT AND SALINE LOCKED. IV DRESSINGS C/D/I WITH NO S/S OF INFILTRATION. SAFETY MEASURES IN PLACE: BED IN LOWEST & LOCKED POSITION, HOB ELEVATED AT 30 DEGREES, BED ALARM ON, CALL LIGHT WITHIN REACH. WILL TURN AND REPOSITION AT LEAST Q2H AND CONTINUE TO MONITOR FOR ANY CHANGES.
[2022-08-19] MEDS: methylPREDNISolone SOD SUCC 40 MG/ML VIAL IV SCH (08:12)
[2022-08-19] MEDS: DOCUSATE SODIUM 100 MG CAPSULE PO SCH ×3 (08:12→16:39)
[2022-08-19] MEDS: MULTIVIT W/MINERALS 1 TAB TABLET PO SCH (08:12)
[2022-08-19] MEDS: METOPROLOL SUCCINATE 25 MG TAB.SR.24H PO SCH (08:12)
[2022-08-19] MEDS: AMIODARONE HCL 200 MG TABLET PO SCH ×2 (08:12→16:39)
[2022-08-19] MEDS: ASCORBIC ACID 500 MG TABLET PO SCH (08:13)
[2022-08-19] MEDS: NICOTINE PATCH (14MG) 14 MG PATCH.TD24 TD SCH (08:13)
[2022-08-19] MEDS: PANTOPRAZOLE 40 MG TABLET.DR PO SCH (08:13)
[2022-08-19] MEDS: ENSURE ENLIVE 237 ML LIQUID (VANILLA) PO SCH (08:13)
[2022-08-19] MEDS: ASPIRIN EC 81 MG TABLET.DR PO SCH (08:13)
[2022-08-19] MEDS: FINASTERIDE (5 MG) 5 MG TABLET PO SCH (08:13)
[2022-08-19] MEDS: ENOXAPARIN SODIUM 40 MG/0.4 ML DISP.SYRIN SQ SCH (08:14)
[2022-08-19 09:25] LABS: ABG BASE EXCESS 20.4 mmol/L; ABG OXYGEN SATURATION 79.4 % (92.0-98.5); ABG PCO2 69.5 mmHg (35.0-45.0); ABG PO2 43.8 mmHg (75.0-100.0); AaDO2 307.6 mmHg; COHb 1.3 % (0.5-1.5); MetHb 0.1 % (0.0-1.5); O2Hb 78.3 % (94.0-97.0); SITE, ABG Right Radial; VENT MODE, BG 12 L O2 VENTURI MASK
--- NOTE | 2022-08-19 09:51 | NUR ---
RT DR. CHAVEZ ORDERED HIGH FLOW FOR PATIENT BUT PATIENT REFUSED SAYING THE PRESSURE IS TOO MUCH. DR. CHAVEZ WERE INFORMED AND SAID TO PLACE PATIENT ON NRB AND KEEP SAT BT 88-90%. PATIENT IS CURRENT ON NRB 15 L O2 WITH SAT OF 93%. Addendum: 08/19/22 at 0954 by BRAYDON NGUYEN RT Amended: Links added.
--- NOTE | 2022-08-19 19:15 | NUR ---
RADIO INTERFERENCE SUPERVISOR CLOSING NOTE: PT. REMAINS IN BED, AWAKE, AOX2-3, WITH PERIODS OF CONFUSION THROUGHOUT THE SHIFT. NO COMPLAINTS OF PAIN/DISCOMFORT. ON 02 VIA NON-REBREATHER MASK AT 15L/MIN, SATURATING AT 100% AT THIS TIME. MILL LABOR SUPERVISOR READS NSR WITH BBB AND 1ST DEGREE HB WITH HR OF 85 BPM AT THIS TIME. SKIN PROTECTION MEASURES DONE. OFF RESTRAINTS, SINCE THIS AM. PT. IS COMPLIANT WITH THE O2 MASK THIS SHIFT. IV ACCESS ON IVONE MIDLINE, PATENT WITH NS TKO RUNNING; LEFT FOREARM #20G, PATENT AND SALINE LOCKED. IV DRESSINGS C/D/I WITH NO S/S OF INFILTRATION. NO BM TODAY. SAFETY MEASURES MAINTAINED: BED IN LOWEST & LOCKED POSITION, HOB ELEVATED AT 30 DEGREES, BED ALARM ON, CALL LIGHT WITHIN REACH. TURNED AND REPOSITIONED AT LEAST Q2H. ENDORSED CONTINUITY OF CARE TO MACHINE REBUILDER RN.
--- NOTE | 2022-08-19 19:15 | NUR ---
SUPERVISOR HYDROCHLORIC AREA NOTES PATIENT RECEIVED ON BED, A/O X 3, WITH PERIOD OF CONFUSION. ABLE TO MAKE NEEDS KNOWN. ON NON REBREATHER MASK @ 15 LPM SATING AT 94%. RESPIRATORY EVEN AND UNLABORED, NO SOB NOTED, NO S/S OF DISTRESS NOTED. V/S TAKEN AND RECORDED. WITH IVONE MID LINE AND LEFT FOREARM # 20 PERIPHERAL LINE PATENT AND INTACT, FLUSHED WITH NS, NO S/S OF INFILTRATION NOTED AT SITE . ALL SAFETY PRECAUTION PROVIDED. BED IN LOWEST POSITION, LOCKED. CALL LIGHT WITH IN REACH. CONTINUE TO MONITOR
--- NOTE | 2022-08-19 20:10 | NUR ---
RT NOTE PT PLACED ON SIMPLE MASK @ 12 LPM. SPO2 @ 97%. RN PAVITHRA AT BEDSIDE. WILL CONTINUE TO MONITOR.
--- NOTE | 2022-08-19 20:20 | NUR ---
RT NOTE PT TITRATED TO SIMPLE MASK 10 LPM. PT TOLERATING WELL. RN PAVITHRA AWARE.
[2022-08-19] MEDS: ATORVASTATIN 10 MG TABLET PO SCH (21:38)
[2022-08-19] MEDS: QUETIAPINE FUMARATE 25 MG TABLET PO SCH (21:38)
[2022-08-19] MEDS: TAMSULOSIN 0.4 MG CAP.SR.24H PO SCH (21:38)
[2022-08-19] MEDS: SENNOSIDES/DOCUSATE SODIUM 1 TAB TABLET PO SCH (21:38)
--- NOTE | 2022-08-19 22:00 | NUR ---
RT NOTE PT REFUSING BIPAP AT THIS TIME. NO RESPIRATORY DISTRESS NOTED.
[2022-08-20] VITALS (27 sets, daily range): BP systolic 86–137; BP diastolic 48–88
[2022-08-20] MEDS: IPRATROPIUM NEB FS 0.5 MG/2.5 ML AMPUL.NEB NEB SCH ×6 (03:49→23:05)
[2022-08-20] MEDS: ALBUTEROL FS 2.5 MG/0.5 ML VIAL.NEB NEB SCH ×6 (03:49→23:05)
[2022-08-20 04:07] LABS: BASOPHILS % (AUTO) 0.1 % (0.0-2.0); EOSINOPHILS % (AUTO) 0.2 % (0.0-6.0); HEMATOCRIT 22 % (39-51); LYMPHOCYTES # (AUTO) 0.5 K/uL (0.8-4.8); LYMPHOCYTES % (AUTO) 4.3 % (20.0-44.0); MEAN CORPUSCULAR HGB CONC 31 g/dl (31.0-36.0); MEAN CORPUSCULAR VOLUME 84 fL (80-96); MONOCYTES # (AUTO) 0.9 K/uL (0.1-1.30); MONOCYTES % (AUTO) 7.7 % (2.0-12.0); NEUTROPHILS # (AUTO) 10.5 K/uL (1.8-8.9); NEUTROPHILS % (AUTO) 87.7 % (43.0-81.0); PLATELET COUNT (AUTO) 176 K/uL (150-450); RED BLOOD CELL COUNT(AUTO) 2.57 MIL/uL (4.5-6.0); WHITE BLOOD COUNT (AUTO) 11.9 K/uL (4.3-11.0)
[2022-08-20 04:24] LABS: CHLORIDE 91 mmol/L (98-107); CREATININE 0.6 mg/dL (0.6-1.3); GLUCOSE 135 mg/dL (74-106); MAGNESIUM 2.1 mg/dL (1.8-2.4); PHOSPHORUS 2.9 mg/dL (2.5-4.9); POTASSIUM 3.7 mmol/L (3.5-5.1); SODIUM SERUM 138 mmol/L (136-145); UREA NITROGEN, BLOOD 23 mg/dL (7-18)
[2022-08-20 05:21] LABS: CARBON DIOXIDE 51 mmol/L (21-32)
[2022-08-20 05:22] LABS: HEMOGLOBIN 6.6 g/dL (13.5-17.5)
[2022-08-20] MEDS: PIPERACILLIN /TAZOBACTAM 3.375 G in IV D5W 100 ML IV SCH ×3 (05:46→21:06)
--- NOTE | 2022-08-20 05:52 | NUR ---
RT NOTE PT TOLERATING SIMPLE MASK @ 10 LPM WELL. PT IS RESPONDING TO COMMANDS. NO RESPIRATORY DISTRESS NOTED.
--- NOTE | 2022-08-20 06:15 | NUR ---
RN NOTES NOTIFIED MELANI REYES REGARDING PATIENT LATEST HGB- 6.6, WITH NEW ORDER TRANSFUSE 1 UNIT PRBC NOTED AND CARRIED OUT. CALLED SHANDA, ABLE TO GET TELEPHONE CONSENT, VERIFIED WITH CHARGE NURSE.
--- NOTE | 2022-08-20 07:10 | NUR ---
RENDERER OPENING NOTE: RECEIVED PT. IN BED, AWAKE, AOX3, NO COMPLAINTS OF PAIN/DISCOMFORT. ON 02 VIA SIMPLE MASK AT 10L/MIN, SATURATING AT 98% AT THIS TIME. PRODUCT MANAGEMENT INTERNSHIP READS NSR WITH BBB AND 1ST DEGREE HB WITH HR OF 79 BPM AT THIS TIME. PT. HAS SKIN ISSUES, WILL DO WOUND TREATMENT/PROTECTION ORDERED. IV ACCESS ON IVONE MIDLINE, PATENT WITH NS TKO RUNNING; LEFT FOREARM #20G, PATENT AND SALINE LOCKED. IV DRESSINGS C/D/I WITH NO S/S OF INFILTRATION. HGB TODAY IS 6.6, WILL TRANSFUSE 1 UNIT OF BLOOD ORDERED, WAITING FOR BLOOD BANK. SAFETY MEASURES IN PLACE: BED IN LOWEST & LOCKED POSITION, HOB ELEVATED AT 30 DEGREES, BED ALARM ON, CALL LIGHT WITHIN REACH. WILL TURN AND REPOSITION AT LEAST Q2H AND CONTINUE TO MONITOR FOR ANY CHANGES.
--- NOTE | 2022-08-20 08:12 | NUR ---
WOUND CARE CONSULT: PT PRESENTS WITH RASH TO GROIN FOLDS, PERINEUM AND BUTTOCKS. RECOMMENDATIONS MADE FOR SKIN CARE AND PROTECTION. DISCUSSED WITH NURSING STAFF. CONDOM CATH IN USE. MD IN AGREEMENT WITH PLAN OF CARE.
[2022-08-20] MEDS: FINASTERIDE (5 MG) 5 MG TABLET PO SCH (08:29)
[2022-08-20] MEDS: methylPREDNISolone SOD SUCC 40 MG/ML VIAL IV SCH (08:29)
[2022-08-20] MEDS: ASCORBIC ACID 500 MG TABLET PO SCH (08:29)
[2022-08-20] MEDS: AMIODARONE HCL 200 MG TABLET PO SCH ×2 (08:30→18:15)
[2022-08-20] MEDS: METOPROLOL SUCCINATE 25 MG TAB.SR.24H PO SCH (08:30)
[2022-08-20] MEDS: PANTOPRAZOLE 40 MG TABLET.DR PO SCH ×2 (08:30→18:16)
[2022-08-20] MEDS: NICOTINE PATCH (14MG) 14 MG PATCH.TD24 TD SCH (08:31)
[2022-08-20] MEDS: DOCUSATE SODIUM 100 MG CAPSULE PO SCH ×3 (08:31→18:15)
[2022-08-20] MEDS: MULTIVIT W/MINERALS 1 TAB TABLET PO SCH (08:31)
[2022-08-20] MEDS: ENSURE ENLIVE 237 ML LIQUID (VANILLA) PO SCH (08:31)
[2022-08-20] MEDS: ASPIRIN EC 81 MG TABLET.DR PO SCH (08:31)
--- NOTE | 2022-08-20 10:30 | NUR ---
APS This SW made an APS report through [employer]. SEBASTIEN contacted [employer] ( ) and spoke to Felicitas. SEBASTIEN faxed APS report to [facility] ( ) and [employer] ( )
[2022-08-20 10:39] LABS: ABG BASE EXCESS 19.6 mmol/L; ABG OXYGEN SATURATION 86.2 % (92.0-98.5); ABG PH 7.437 (7.350-7.450); ABG PO2 51.6 mmHg (75.0-100.0); AaDO2 299.2 mmHg; MetHb 0.2 % (0.0-1.5); O2Hb 85.2 % (94.0-97.0); SITE, ABG Left Radial; VENT MODE, BG SIMPLE MASK
[2022-08-20] MEDS: CLOTRIMAZOLE/BETAMETASONE DIPROPIONATE 15 GM TUBE TP SCH ×2 (10:43→18:13)
[2022-08-20 14:53] LABS: BAND % (MANUAL) 3 % (0.0-5.0); LYMPHOCYTES % (MANUAL) 8 % (16-48); MONOCYTES % (MANUAL) 6 % (0-11.0); NEUTROPHILS % (MANUAL) 80 (42-76)
--- NOTE | 2022-08-20 16:15 | NUR ---
AGILE SCRUM COACH NOTE: 1 UNIT OF PRBC TRANSFUSION STARTED ON 1353 AND ENDED AT 1601. NO TRANSFUSION REACTION NOTED. VS STABLE, AFEBRILE, NO COMPLAINTS OF DISCOMFORT. WILL CONTINUE TO MONITOR PT. FOR S/S OF BLOOD TRANSFUSION REACTION.
[2022-08-20 17:05] LABS: BASOPHILS # (AUTO) 0.1 K/uL (0.0-0.2); BASOPHILS % (AUTO) 0.9 % (0.0-2.0); EOSINOPHILS % (AUTO) 0.1 % (0.0-6.0); HEMATOCRIT 23 % (39-51); HEMOGLOBIN 7.1 g/dL (13.5-17.5); LYMPHOCYTES # (AUTO) 0.2 K/uL (0.8-4.8); LYMPHOCYTES % (AUTO) 1.4 % (20.0-44.0); MEAN CORPUSCULAR HGB CONC 31 g/dl (31.0-36.0); MEAN CORPUSCULAR VOLUME 84 fL (80-96); MONOCYTES # (AUTO) 0.3 K/uL (0.1-1.30); MONOCYTES % (AUTO) 2.2 % (2.0-12.0); NEUTROPHILS # (AUTO) 13.3 K/uL (1.8-8.9); NEUTROPHILS % (AUTO) 95.4 % (43.0-81.0); PLATELET COUNT (AUTO) 178 K/uL (150-450); RED BLOOD CELL COUNT(AUTO) 2.75 MIL/uL (4.5-6.0)
--- NOTE | 2022-08-20 19:15 | NUR ---
MENTAL HEALTH CONSULTANT CLOSING NOTE: RECEIVED PT. IN BED, AWAKE, AOX3, NO COMPLAINTS OF PAIN/DISCOMFORT. STILL ON 02 VIA SIMPLE MASK AT 10L/MIN, SATURATING AT 97% AT THIS TIME. BUSINESS APPLICATIONS ANALYST READS NSR WITH BBB AND 1ST DEGREE HB WITH HR OF 85 BPM AT THIS TIME. WOUND TREATMENT/PROTECTION DONE ORDERED. IV ACCESS ON IVONE MIDLINE, PATENT WITH NS TKO RUNNING; LEFT FOREARM #20G, PATENT AND SALINE LOCKED. IV DRESSINGS C/D/I WITH NO S/S OF INFILTRATION. TRANSFUSED 1 UNIT OF BLOOD ORDERED, REPEAT HGB SHOWED 7.1. PT. VS STABLE WITH NO REPORT OF DISCOMFORT. SAFETY MEASURES MAINTAINED: BED IN LOWEST & LOCKED POSITION, HOB ELEVATED AT 30 DEGREES, BED ALARM ON, CALL LIGHT WITHIN REACH. TURNED AND REPOSITIONED AT LEAST Q2H. ENDORSED CONTINUITY OF CARE TO HOP GROWER RN.
--- NOTE | 2022-08-20 20:00 | NUR ---
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 SPO2 96%.Denies pain or sob.HOB elevated. NS at TKO infusing via IVONE ML site intact.Condom cath to gravity.Turned and repositioned.Safety precaution implemented.Call light at bedside.
[2022-08-20] MEDS: ATORVASTATIN 10 MG TABLET PO SCH (21:10)
[2022-08-20] MEDS: QUETIAPINE FUMARATE 25 MG TABLET PO SCH (21:10)
[2022-08-20] MEDS: TAMSULOSIN 0.4 MG CAP.SR.24H PO SCH (21:10)
[2022-08-20] MEDS: SENNOSIDES/DOCUSATE SODIUM 1 TAB TABLET PO SCH (21:10)
[2022-08-20] MEDS: ACETAMINOPHEN 325 MG TABLET PO PRN (21:14)
[2022-08-21] VITALS (38 sets, daily range): BP systolic 72–157; BP diastolic 29–92
[2022-08-21] MEDS: IV NS 0.9% 250 ML IV PRN (01:57)
[2022-08-21] MEDS: IPRATROPIUM NEB FS 0.5 MG/2.5 ML AMPUL.NEB NEB SCH ×6 (03:11→23:16)
[2022-08-21] MEDS: ALBUTEROL FS 2.5 MG/0.5 ML VIAL.NEB NEB SCH ×6 (03:11→23:17)
[2022-08-21 04:08] LABS: BASOPHILS % (AUTO) 0.1 % (0.0-2.0); EOSINOPHILS % (AUTO) 0.3 % (0.0-6.0); HEMATOCRIT 21 % (39-51); LYMPHOCYTES # (AUTO) 0.5 K/uL (0.8-4.8); LYMPHOCYTES % (AUTO) 3.5 % (20.0-44.0); MEAN CORPUSCULAR HGB CONC 32 g/dl (31.0-36.0); MEAN CORPUSCULAR VOLUME 83 fL (80-96); MONOCYTES # (AUTO) 0.9 K/uL (0.1-1.30); MONOCYTES % (AUTO) 6.5 % (2.0-12.0); NEUTROPHILS # (AUTO) 12.4 K/uL (1.8-8.9); NEUTROPHILS % (AUTO) 89.6 % (43.0-81.0); PLATELET COUNT (AUTO) 167 K/uL (150-450); RED BLOOD CELL COUNT(AUTO) 2.53 MIL/uL (4.5-6.0); WHITE BLOOD COUNT (AUTO) 13.9 K/uL (4.3-11.0)
[2022-08-21 04:15] LABS: CHLORIDE 94 mmol/L (98-107); CREATININE 0.6 mg/dL (0.6-1.3); GLUCOSE 112 mg/dL (74-106); POTASSIUM 3.7 mmol/L (3.5-5.1); SODIUM SERUM 137 mmol/L (136-145); UREA NITROGEN, BLOOD 21 mg/dL (7-18)
[2022-08-21 04:42] LABS: CARBON DIOXIDE 48 mmol/L (21-32)
[2022-08-21 04:44] LABS: HEMOGLOBIN 6.7 g/dL (13.5-17.5)
[2022-08-21] MEDS: PIPERACILLIN /TAZOBACTAM 3.375 G in IV D5W 100 ML IV SCH ×3 (05:00→20:25)
[2022-08-21 06:21] LABS: BAND % (MANUAL) 7 % (0.0-5.0); BASOPHILS % (MANUAL) 0 % (0.0-2.0); EOSINOPHILS % (MANUAL) 1 % (0-4); LYMPHOCYTES % (MANUAL) 5 % (16-48); MONOCYTES % (MANUAL) 12 % (0-11.0); NEUTROPHILS % (MANUAL) 75 (42-76)
--- NOTE | 2022-08-21 06:30 | NUR ---
Received call from lab patient H/H 6.05/01 called to ASAEL Hughes with orders received and carried out. To transfuse 1 Uint PRBC.Will endorse to day shift for ODILON.
--- NOTE | 2022-08-21 07:00 | NUR ---
RN NOTE RECEIVED PATIENT IN BED RESTING ALERT ORIENTED X3 VERBALLY RESPONSIVE ON 10L OXYGEN VIA MASK, O2:95% IV SITE IS ON LEFT UPPER ARM MIDLINE AND LEFT FOREARM INTACT PATENT,ON CONDOM CATH,HEMOGLOBIN 6.7 WILL GIVE ONE UNIT PRBC, SAFETY MEASURE IMPLEMENT BED IN LOW POSITON AND LOCKED,CALL LIGHT WITHIN REACH,HEAD OF THE BED ELEVATED CONTINUE TO MONITOR.
[2022-08-21] MEDS: PANTOPRAZOLE 40 MG TABLET.DR PO SCH (08:51)
[2022-08-21] MEDS: MULTIVIT W/MINERALS 1 TAB TABLET PO SCH (08:51)
[2022-08-21] MEDS: ASCORBIC ACID 500 MG TABLET PO SCH (08:51)
[2022-08-21] MEDS: AMIODARONE HCL 200 MG TABLET PO SCH ×2 (08:52→16:45)
[2022-08-21] MEDS: DOCUSATE SODIUM 100 MG CAPSULE PO SCH ×3 (08:52→16:46)
[2022-08-21] MEDS: FINASTERIDE (5 MG) 5 MG TABLET PO SCH (08:52)
[2022-08-21] MEDS: METOPROLOL SUCCINATE 25 MG TAB.SR.24H PO SCH (08:52)
[2022-08-21] MEDS: ASPIRIN EC 81 MG TABLET.DR PO SCH (08:52)
[2022-08-21] MEDS: methylPREDNISolone SOD SUCC 40 MG/ML VIAL IV SCH (08:53)
[2022-08-21] MEDS: CLOTRIMAZOLE/BETAMETASONE DIPROPIONATE 15 GM TUBE TP SCH ×2 (08:53→16:46)
[2022-08-21] MEDS: NICOTINE PATCH (14MG) 14 MG PATCH.TD24 TD SCH (08:53)
[2022-08-21] MEDS: ENSURE ENLIVE 237 ML LIQUID (VANILLA) PO SCH (08:54)
[2022-08-21 10:34] LABS: OCCULT BLOOD STOOL POSITIVE (NEGATIVE)
[2022-08-21 14:42] LABS: HEMOGLOBIN 8.5 g/dL (13.5-17.5)
--- NOTE | 2022-08-21 18:48 | NUR ---
RN NOTE PATIENT REAMING ALERT ORIENTED X3 VERBALLY RESPONSIVE ON 10L SIMPLE MASK O2:90-98% ONE UNIT PRBC GIVEN HEMOGLOBIN 8.5 AND HEMATOCRIT 27.IV SITE IS ON LEFT UPPER ARM MIDLINE AND LEFT FOREARM INTACT PATENT,ALL DUE MEDS GIVEN MD ORDERED,CONDOM CATH IN PLACE,KEPT CLEAN AND DRY ALL THE TIME,KEPT HEAD OF THE BED ELEVATED ALL THE TIME,WILL ENDORSE NEXT COMING SHIFT FOR CONTINUATION OF CARE.
[2022-08-21] MEDS: PANTOPRAZOLE 40 MG VIAL IV SCH (20:26)
[2022-08-21] MEDS: SENNOSIDES/DOCUSATE SODIUM 1 TAB TABLET PO SCH (21:17)
[2022-08-21] MEDS: TAMSULOSIN 0.4 MG CAP.SR.24H PO SCH (21:17)
[2022-08-21] MEDS: ATORVASTATIN 10 MG TABLET PO SCH (21:17)
[2022-08-21] MEDS: QUETIAPINE FUMARATE 25 MG TABLET PO SCH (21:17)
[2022-08-22] VITALS (46 sets, daily range): BP systolic 86–165; BP diastolic 36–116
[2022-08-22] MEDS: ALBUTEROL FS 2.5 MG/0.5 ML VIAL.NEB NEB SCH ×6 (03:23→23:12)
[2022-08-22] MEDS: IPRATROPIUM NEB FS 0.5 MG/2.5 ML AMPUL.NEB NEB SCH ×6 (03:23→23:12)
[2022-08-22] MEDS: PIPERACILLIN /TAZOBACTAM 3.375 G in IV D5W 100 ML IV SCH ×3 (04:21→20:01)
[2022-08-22 04:32] LABS: BASOPHILS % (AUTO) 0.1 % (0.0-2.0); EOSINOPHILS % (AUTO) 0.3 % (0.0-6.0); HEMATOCRIT 23 % (39-51); HEMOGLOBIN 7.3 g/dL (13.5-17.5); LYMPHOCYTES # (AUTO) 0.4 K/uL (0.8-4.8); LYMPHOCYTES % (AUTO) 3.5 % (20.0-44.0); MEAN CORPUSCULAR HGB CONC 32 g/dl (31.0-36.0); MEAN CORPUSCULAR VOLUME 83 fL (80-96); MONOCYTES # (AUTO) 0.8 K/uL (0.1-1.30); MONOCYTES % (AUTO) 6.7 % (2.0-12.0); NEUTROPHILS # (AUTO) 10.2 K/uL (1.8-8.9); NEUTROPHILS % (AUTO) 89.4 % (43.0-81.0); PLATELET COUNT (AUTO) 172 K/uL (150-450); RED BLOOD CELL COUNT(AUTO) 2.77 MIL/uL (4.5-6.0); WHITE BLOOD COUNT (AUTO) 11.4 K/uL (4.3-11.0)
[2022-08-22 04:38] LABS: CALCIUM, SERUM 8.1 mg/dL (8.5-10.1); CHLORIDE 93 mmol/L (98-107); CREATININE 0.6 mg/dL (0.6-1.3); GLUCOSE 98 mg/dL (74-106); POTASSIUM 3.7 mmol/L (3.5-5.1); SODIUM SERUM 137 mmol/L (136-145); UREA NITROGEN, BLOOD 21 mg/dL (7-18)
[2022-08-22 05:19] LABS: CARBON DIOXIDE 51 mmol/L (21-32)
--- NOTE | 2022-08-22 05:45 | NUR ---
Lab critical CO251. Glenn Jangw MORTGAGE LOAN REVIEWER updated with no new orders. Pt had some bouts of confusion and forgetfulness during the night. Would wake up periodically.
--- NOTE | 2022-08-22 08:00 | NUR ---
RN NOTES RECEIVED PATIENT IN THE BED A/O X3 FORGETFUL, KEEP ASKING TO DIAL HIS , GET ANXIOUS EASILY. RT WITH THE PATIENT GETTING BREATHING TREATMENT. VSS, T-97.8, HR- 87 BEDSIDE MONITOR. PATIENT REFUSED PAIN, ASSIST PATIENT WITH BREAKFAST, DUE MEDICATION ADMINISTERED, INFUSING TKO AT IVONE MIDLINE INTACT, CONDOM CATH INTACT 100ML OF OUTPUT, CALL LIGHT WITHIN TO REACH. WILL FOLLOW UP.
[2022-08-22] MEDS: CLOTRIMAZOLE/BETAMETASONE DIPROPIONATE 15 GM TUBE TP SCH ×2 (08:39→17:10)
[2022-08-22] MEDS: ENSURE ENLIVE 237 ML LIQUID (VANILLA) PO SCH (08:40)
[2022-08-22] MEDS: PANTOPRAZOLE 40 MG VIAL IV SCH ×2 (08:44→21:17)
[2022-08-22] MEDS: MULTIVIT W/MINERALS 1 TAB TABLET PO SCH (08:44)
[2022-08-22] MEDS: methylPREDNISolone SOD SUCC 40 MG/ML VIAL IV SCH (08:44)
[2022-08-22] MEDS: NICOTINE PATCH (14MG) 14 MG PATCH.TD24 TD SCH (08:44)
[2022-08-22] MEDS: FINASTERIDE (5 MG) 5 MG TABLET PO SCH (08:45)
[2022-08-22] MEDS: DOCUSATE SODIUM 100 MG CAPSULE PO SCH ×3 (08:45→17:12)
[2022-08-22] MEDS: ASPIRIN EC 81 MG TABLET.DR PO SCH (08:45)
[2022-08-22] MEDS: ASCORBIC ACID 500 MG TABLET PO SCH (08:45)
[2022-08-22] MEDS: AMIODARONE HCL 200 MG TABLET PO SCH ×2 (08:46→17:12)
[2022-08-22] MEDS: METOPROLOL SUCCINATE 25 MG TAB.SR.24H PO SCH (08:46)
--- NOTE | 2022-08-22 10:29 | NUR ---
RN NOTES TRANSFUSING ONE UNIT OF BLOOD AT THIS TIME IVONE MIDLINE INTACT. PATIENT A/O X3, ON FACE MASK, NO ACUTE RESPIRATORY DISTRESS, T-98.2F, BP 99/60, P-84, R-23, O2-97%. PATIENT REFUSED PAIN, RESTING IN THE BED. WILL FOLLOW UP.
--- NOTE | 2022-08-22 10:50 | NUR ---
RN NOTES PATIENT TOLERATING BLOOD INFUSION , NO ACUTE RESPIRATORY DISTRESS, T-98, P- 87,R-22, BP 117/54, INCREASED INFUSION 120 ML/HR INTACT. PATIENT RESTING IN THE BED. WILL FOLLOW UP.
[2022-08-22 11:34] LABS: ABG BASE EXCESS 16.5 mmol/L; ABG OXYGEN SATURATION 95.4 % (92.0-98.5); ABG PH 7.364 (7.350-7.450); AaDO2 255.8 mmHg; COHb 0.5 % (0.5-1.5); MetHb 0.4 % (0.0-1.5); O2Hb 94.5 % (94.0-97.0); SITE, ABG Right Radial; VENT MODE, BG SIMPLE MASK
[2022-08-22 11:49] LABS: BAND % (MANUAL) 4 % (0.0-5.0); LYMPHOCYTES % (MANUAL) 3 % (16-48); MONOCYTES % (MANUAL) 4 % (0-11.0); NEUTROPHILS % (MANUAL) 89 (42-76)
--- NOTE | 2022-08-22 12:00 | NUR ---
RN NOTES CONTINUING BLOOD TRANSFUSION 120ML/HR, PATIENT RESTING IN THE BED, T-98.2, P-95, R-25, O2-99%, BP 109/58, WILL FOLLOW UP.
--- NOTE | 2022-08-22 13:33 | NUR ---
RN NOTES FINISHED BLOOD TRANSFUSION AT THIS TIME, PATIENT STABLE T-98.2F, R-22, BP 135/65, 02-98%,P-85, NO ACUTE RESPIRATORY DISTRESS, PATIENT A/O X3, COOPERATIVE. SEEN HOSPITALIST, AND PATIENT NEED GI CONSULTATION. WILL FOLLOW UP.
[2022-08-22 15:31] LABS: BILIRUBIN,TOTAL 0.5 mg/dL (0.2-1.0)
--- NOTE | 2022-08-22 18:25 | NUR ---
RN NOTES PM CARE DONE, PATIENT ON FACE MASK 10L, NO ACUTE RESPIRATORY DISTRESS. A/O X3, DUE MEDICATION ADMINISTERED, PATIENT TOLERATED DINNER 50% SELF, ASSIST TURN AND REPOSTION Q 2 HR. CALL LIGHT WITHIN TO REACH. ENDORSED ONCOMING NURSE ODILON.
--- NOTE | 2022-08-22 19:50 | NUR ---
ICU/BROKER ASSOCIATE CALLED TO TALK TO AND ASKED ABOUT AN UPDATE.
[2022-08-22] MEDS: IV NS 0.9% 250 ML IV PRN (20:01)
--- NOTE | 2022-08-22 21:00 | NUR ---
ICU/CDL DRIVER ASKED TO TALK TO BUT WAS ASLEEP.
[2022-08-22] MEDS: QUETIAPINE FUMARATE 25 MG TABLET PO SCH (22:45)
[2022-08-22] MEDS: SENNOSIDES/DOCUSATE SODIUM 1 TAB TABLET PO SCH (22:45)
[2022-08-22] MEDS: ATORVASTATIN 10 MG TABLET PO SCH (22:45)
[2022-08-22] MEDS: TAMSULOSIN 0.4 MG CAP.SR.24H PO SCH (22:45)
--- NOTE | 2022-08-22 22:45 | NUR ---
ICU/CARE ADMINISTRATIVE TECH WHEN CLEANING IP THE PT FOUND 5 WHITE PILLS. PT WAS FOUND WITH THE SAME WHITE PILLS LAST WEEK. CLINICAL CARE MANAGER MD WAS MADE AWARE. ALSO AT THIS TIME LET THE HOUSE SUP KNOW ABOUT THIS. ALSO PLACED A SOCIAL SERVICE FOR THE NOT TO VISIT.
[2022-08-23] VITALS (17 sets, daily range): BP systolic 87–119; BP diastolic 25–83
--- NOTE | 2022-08-23 01:25 | NUR ---
ICU/MIXER TENDER PT WAS CLEAN AND PROVIDED PM CARE. PT TOLERATED THIS WELL. WILL CONTINUE TO MONITOR THIS PT.
[2022-08-23] MEDS: ALBUTEROL FS 2.5 MG/0.5 ML VIAL.NEB NEB SCH ×6 (03:22→23:30)
[2022-08-23] MEDS: IPRATROPIUM NEB FS 0.5 MG/2.5 ML AMPUL.NEB NEB SCH ×6 (03:22→23:30)
[2022-08-23] MEDS: PIPERACILLIN /TAZOBACTAM 3.375 G in IV D5W 100 ML IV SCH ×2 (04:18→13:18)
[2022-08-23 06:10] LABS: EOSINOPHILS % (AUTO) 0.2 % (0.0-6.0); HEMATOCRIT 26 % (39-51); HEMOGLOBIN 8.3 g/dL (13.5-17.5); LYMPHOCYTES # (AUTO) 0.3 K/uL (0.8-4.8); LYMPHOCYTES % (AUTO) 2.7 % (20.0-44.0); MEAN CORPUSCULAR HGB CONC 32 g/dl (31.0-36.0); MEAN CORPUSCULAR VOLUME 86 fL (80-96); MONOCYTES # (AUTO) 0.8 K/uL (0.1-1.30); MONOCYTES % (AUTO) 8.3 % (2.0-12.0); NEUTROPHILS # (AUTO) 8.7 K/uL (1.8-8.9); NEUTROPHILS % (AUTO) 88.8 % (43.0-81.0); PLATELET COUNT (AUTO) 161 K/uL (150-450); RED BLOOD CELL COUNT(AUTO) 2.99 MIL/uL (4.5-6.0); WHITE BLOOD COUNT (AUTO) 9.7 K/uL (4.3-11.0)
[2022-08-23 06:25] LABS: CHLORIDE 97 mmol/L (98-107); CREATININE 0.5 mg/dL (0.6-1.3); GLUCOSE 93 mg/dL (74-106); POTASSIUM 3.8 mmol/L (3.5-5.1); SODIUM SERUM 140 mmol/L (136-145); UREA NITROGEN, BLOOD 22 mg/dL (7-18)
[2022-08-23 06:57] LABS: CARBON DIOXIDE 48 mmol/L (21-32)
--- NOTE | 2022-08-23 07:30 | NUR ---
TELECOMMUNICATIONS CONSULTANT OPENING NOTE: RECEIVED PT. IN BED, ASLEEP BUT EASILY AROUSABLE, NO COMPLAINTS OF PAIN/DISCOMFORT. ON 02 VIA SIMPLE MASK AT 10L/MIN, SATURATING AT 98% AT THIS TIME. HYDROMETER FINISHER READS NSR WITH BBB AND 1ST DEGREE HB WITH HR OF 91 BPM AT THIS TIME. PT. HAS SKIN ISSUES, WILL DO WOUND TREATMENT/PROTECTION ORDERED. IV ACCESS ON IVONE MIDLINE, PATENT WITH NS TKO RUNNING; LEFT FOREARM #20G, PATENT AND SALINE LOCKED. IV DRESSINGS C/D/I WITH NO S/S OF INFILTRATION. SAFETY MEASURES IN PLACE: BED IN LOWEST & LOCKED POSITION, HOB ELEVATED AT 30 DEGREES, BED ALARM ON, CALL LIGHT WITHIN REACH. WILL TURN AND REPOSITION AT LEAST Q2H AND CONTINUE TO MONITOR FOR ANY CHANGES
--- NOTE | 2022-08-23 08:30 | NUR ---
GENERAL INSPECTOR NOTES: PER RT TITRATED O2 TO 5 LITER VIA SIMPLE MASK, OFFERED BREAKFAST PT REFUSED CONTINUE TO SAY HE DOES NOT FEEL LIKE EATING
[2022-08-23] MEDS: ENSURE ENLIVE 237 ML LIQUID (VANILLA) PO SCH (09:00)
[2022-08-23] MEDS: METOPROLOL SUCCINATE 25 MG TAB.SR.24H PO SCH (09:00)
[2022-08-23] MEDS: NICOTINE PATCH (14MG) 14 MG PATCH.TD24 TD SCH (09:14)
[2022-08-23] MEDS: ASCORBIC ACID 500 MG TABLET PO SCH (09:14)
[2022-08-23] MEDS: FINASTERIDE (5 MG) 5 MG TABLET PO SCH (09:14)
[2022-08-23] MEDS: MULTIVIT W/MINERALS 1 TAB TABLET PO SCH (09:14)
[2022-08-23] MEDS: PANTOPRAZOLE 40 MG VIAL IV SCH ×2 (09:14→21:46)
[2022-08-23] MEDS: methylPREDNISolone SOD SUCC 40 MG/ML VIAL IV SCH (09:14)
[2022-08-23] MEDS: AMIODARONE HCL 200 MG TABLET PO SCH ×2 (09:15→17:43)
[2022-08-23] MEDS: ASPIRIN EC 81 MG TABLET.DR PO SCH (09:15)
[2022-08-23] MEDS: DOCUSATE SODIUM 100 MG CAPSULE PO SCH ×3 (09:15→17:43)
[2022-08-23] MEDS: CLOTRIMAZOLE/BETAMETASONE DIPROPIONATE 15 GM TUBE TP SCH ×2 (09:21→17:44)
[2022-08-23] MEDS ORDERED: LACTULOSE 10 G/15 ML UDC (PYXIS) PO PRN (13:30)
[2022-08-23] MEDS ORDERED: POLYETHYLENE GLYCOL 3350 17 GM POWD.PACK PO PRN (13:30)
--- NOTE | 2022-08-23 16:05 | NUR ---
RN NOTES: PT MOVED TO [facility] TO ROOM 110, CONTINUE TO PROVIDE CARE, CONNECTED TO TELE MONITOR, STILL REFUSES BIPAP, PT CALLED HIS AND NOTIFIED HER OF HIS TRANSFER
--- NOTE | 2022-08-23 17:30 | NUR ---
RN NOTES: CAME AT 1700 TO VISIT, I STAYED AT THE DOOR AT ALL TIME UNTIL SHE LEFT
--- NOTE | 2022-08-23 19:04 | NUR ---
RN CLOSING NOTE: PATIENT REMAINS IN ROOM IN NO SIGNS OF RESPIRATORY DISTRESS, PATIENT STILL ON 5L OF 02 40% FIO2 VIA SIMPLE MAS.K PT REFUSED BIPAP .SAFETY MEASURES IMPLEMENTED, BED IN LOWEST POSITION, LOCKED, SIDE RAILS UP, CALL LIGHT WITHIN REACH. ALL NEEDS AND ORDERS ADDRESSED DURING THE SHIFT. IV ACCESS MAINTAINED INTACT, SECURED AND FLUSHING WELL. ALL DUE MEDS GIVEN ORDERED & SCHEDULED ; PATIENT TOLERATED WELL. PATIENT KEPT CLEAN AND COMFORTABLE WITHIN THE SHIFT. PATIENT ENDORSED TO INCOMING SHIFT RN WITH STABLE VITAL SIGN AND FOR CONTINUITY OF CARE.
--- NOTE | 2022-08-23 19:10 | NUR ---
RN NOTE Patient in bed, on semi santoyo's, AO x 3-4, non compliant and tries to remove o2 mask, in no acute distress, saturation at 95% on 5L via simple mask, SR on the monitor, HR is 89. IV line at LFA 20g, and IVONE midline patent and flushing well, no s/s of infection. Safety measures in place, bed is locked and at lowest position, call light within reach of patient. Will cont to monitor and reassess.
[2022-08-23] MEDS: ATORVASTATIN 10 MG TABLET PO SCH (21:46)
[2022-08-23] MEDS: TAMSULOSIN 0.4 MG CAP.SR.24H PO SCH (21:46)
[2022-08-23] MEDS: QUETIAPINE FUMARATE 25 MG TABLET PO SCH (21:46)
[2022-08-23] MEDS: SENNOSIDES/DOCUSATE SODIUM 1 TAB TABLET PO SCH (21:46)
[2022-08-24] VITALS: BP 105/61
[2022-08-24] MEDS: ACETAMINOPHEN 325 MG TABLET PO PRN (02:58)
[2022-08-24 04:00] VITALS: BP 128/72
[2022-08-24] MEDS: IPRATROPIUM NEB FS 0.5 MG/2.5 ML AMPUL.NEB NEB SCH ×6 (05:02→22:53)
[2022-08-24] MEDS: ALBUTEROL FS 2.5 MG/0.5 ML VIAL.NEB NEB SCH ×6 (05:02→22:53)
[2022-08-24 06:37] LABS: CALCIUM, SERUM 8.5 mg/dL (8.5-10.1); CREATININE 0.6 mg/dL (0.6-1.3); POTASSIUM 4.7 mmol/L (3.5-5.1)
[2022-08-24 06:48] LABS: BASOPHILS % (AUTO) 0.2 % (0.0-2.0); EOSINOPHILS % (AUTO) 0.2 % (0.0-6.0); HEMATOCRIT 25 % (39-51); HEMOGLOBIN 8.2 g/dL (13.5-17.5); LYMPHOCYTES # (AUTO) 0.4 K/uL (0.8-4.8); LYMPHOCYTES % (AUTO) 4.3 % (20.0-44.0); MEAN CORPUSCULAR HGB CONC 33 g/dl (31.0-36.0); MEAN CORPUSCULAR VOLUME 88 fL (80-96); MONOCYTES # (AUTO) 0.9 K/uL (0.1-1.30); MONOCYTES % (AUTO) 8.5 % (2.0-12.0); NEUTROPHILS # (AUTO) 8.8 K/uL (1.8-8.9); NEUTROPHILS % (AUTO) 86.8 % (43.0-81.0); PLATELET COUNT (AUTO) 202 K/uL (150-450); RED BLOOD CELL COUNT(AUTO) 2.84 MIL/uL (4.5-6.0); WHITE BLOOD COUNT (AUTO) 10.1 K/uL (4.3-11.0)
--- NOTE | 2022-08-24 07:47 | NUR ---
[facility] RN notes Received patient in bed, open eyes spontaneously but confused at time. On venturi mask with 12L oxygen, RR 22 bpm. Telemetry showed SR with HR 84bpm. Noted coughing and encouraged deep breathing exercise and interact with RT for therapy. Propped up to mid-santoyo position. All needs attended at the moment. Call escalera is placed within reach. Bed is locked and set at the lowest position. Safety measures are implemented. Will monitor.
[2022-08-24 08:00] VITALS: BP 113/63
[2022-08-24] MEDS: ENSURE ENLIVE 237 ML LIQUID (VANILLA) PO SCH (09:00)
[2022-08-24] MEDS: METOPROLOL SUCCINATE 25 MG TAB.SR.24H PO SCH (09:12)
[2022-08-24] MEDS: PANTOPRAZOLE 40 MG VIAL IV SCH ×2 (09:13→21:40)
[2022-08-24] MEDS: AMIODARONE HCL 200 MG TABLET PO SCH ×2 (09:13→17:09)
[2022-08-24] MEDS: DOCUSATE SODIUM 100 MG CAPSULE PO SCH ×3 (09:13→17:09)
[2022-08-24] MEDS: MULTIVIT W/MINERALS 1 TAB TABLET PO SCH (09:14)
[2022-08-24] MEDS: ASCORBIC ACID 500 MG TABLET PO SCH (09:14)
[2022-08-24] MEDS: NICOTINE PATCH (14MG) 14 MG PATCH.TD24 TD SCH (09:14)
[2022-08-24] MEDS: ASPIRIN EC 81 MG TABLET.DR PO SCH (09:14)
[2022-08-24] MEDS: FINASTERIDE (5 MG) 5 MG TABLET PO SCH (09:14)
[2022-08-24] MEDS: methylPREDNISolone SOD SUCC 40 MG/ML VIAL IV SCH (09:14)
[2022-08-24] MEDS: CLOTRIMAZOLE/BETAMETASONE DIPROPIONATE 15 GM TUBE TP SCH ×2 (09:16→17:09)
--- NOTE | 2022-08-24 09:50 | NUR ---
[facility] RN NOTE REPORTED TO DR CHAVEZ THAT PATIENT STILL CONGESTED AND ON VENTURI MASK SATURATION 88-90%- STATED ITS OK WILL CONT TO MONITOR CLOSELY
[2022-08-24 11:44] LABS: NEUTROPHILS % (MANUAL) 76 (42-76)
[2022-08-24 11:45] LABS: BAND % (MANUAL) 6 % (0.0-5.0); BASOPHILS % (MANUAL) 0 % (0.0-2.0); EOSINOPHILS % (MANUAL) 1 % (0-4); LYMPHOCYTES % (MANUAL) 4 % (16-48); MONOCYTES % (MANUAL) 13 % (0-11.0)
[2022-08-24 12:00] VITALS: BP 123/81
--- NOTE | 2022-08-24 12:15 | NUR ---
[facility] RN NOTE ROUND MADE, SEEN BY TEDDY LYN STRIKE PLANNING APPLICATIONS ,UPDATED PATIENT CONDITION CONT ON VENTURI MASK SATURATION 90%
--- NOTE | 2022-08-24 13:03 | NUR ---
[facility] RN NOTE PER TEDDY LYN SPEECH TEACHER OK TO SIT AT EDGE OF BED .TOLERATED WELL SATURATION 90%
--- NOTE | 2022-08-24 15:13 | NUR ---
[facility] RN NOTE ALL NEEDS ATTENDED, PER RT PLACED ON SIMPLE MASK AT THIS TIME 10,L SATURATION 92% WILL CONT TO MONITOR
[2022-08-24 16:00] VITALS: BP 116/65
--- NOTE | 2022-08-24 16:15 | NUR ---
[facility] RN NOTE PLACED ON 6L BY SIMPLE L MASK SATURATION 95% WILL MONITOR
--- NOTE | 2022-08-24 16:17 | NUR ---
Jeny RN notes Tailed oxygen down to 6L given via face mask. RR 20bpm, SpO2 94%. Keep observation.
--- NOTE | 2022-08-24 18:47 | NUR ---
[facility] RN notes Patient is resting in bed without active complaint. SpO2 94% with 6L oxygen given via face mask, RR WNL. Telemetry showed SR with HR 90/min. IV site is dry an intact. Call escalera is placed within reach. Bed is locked and placed in lowest position. All safety measures are implemented. Will endorse PM nurse to continue care and monitoring.
--- NOTE | 2022-08-24 19:49 | NUR ---
RT Pt asleep and comfortable on 6L simple mask. SPO2 94%. Q4 Albuterol only given. No Atrovent in hospital. RN aware.
--- NOTE | 2022-08-24 19:56 | NUR ---
RN OPENING NOTE PT A&OX4 LYING SUPINE IN BED WITH HEAD ELEVATED. RESPIRATIONS EVEN AND UNLABORED WITH SIMPLE MASK AT 6 LPM AND O2 SAT OF 94%. SKIN IS WARM AND DRY. PT WAS GIVEN WATER UPON REQUEST AND PLACED BACK ON OXYGEN. DENIES OTHER NEEDS AT THIS TIME. BED LOCKED AND AT LOWEST SETTING WITH 2 SIDE RAILS UP. CALL LIGHT WITHIN REACH.
[2022-08-24 20:00] VITALS: BP 102/61
[2022-08-24] MEDS: ATORVASTATIN 10 MG TABLET PO SCH (21:40)
[2022-08-24] MEDS: TAMSULOSIN 0.4 MG CAP.SR.24H PO SCH (21:40)
[2022-08-24] MEDS: SENNOSIDES/DOCUSATE SODIUM 1 TAB TABLET PO SCH (21:40)
[2022-08-24] MEDS: QUETIAPINE FUMARATE 25 MG TABLET PO SCH (21:40)
[2022-08-25] VITALS: BP 123/65
[2022-08-25] MEDS: IPRATROPIUM NEB FS 0.5 MG/2.5 ML AMPUL.NEB NEB SCH ×6 (03:30→23:54)
[2022-08-25] MEDS: ALBUTEROL FS 2.5 MG/0.5 ML VIAL.NEB NEB SCH ×6 (03:54→23:54)
--- NOTE | 2022-08-25 05:02 | NUR ---
PT FOUND LEANING TO LEFT SIDE OF BED C/O SOB. O2 SAT OF 84% ON NRB @ 15 LPM. RT AND PROVIDER NOTIFIED. GIVEN ORDER TO COLLECT ABG PER PROVIDER. WILL CONTINUE TO MONITOR.
--- NOTE | 2022-08-25 05:36 | NUR ---
ATTEMPTED TO COLLECT ABG BUT WAS UNSUCCESSFUL DUE TO PT BEING COMBATIVE. PT STATED "DON'T TOUCH ME. I DON'T TRUST ANY OF YOU". PT PLACED BACK ON SIMPLE MASK @ 10 LPM WITH O2 SAT OF 88%.
[2022-08-25 05:56] VITALS: BP 117/57
--- NOTE | 2022-08-25 05:58 | NUR ---
Pt was placed on NRB due to desaturation. ABG order was placed. Unable to collect ABG because pt was being combative. Verbally refusing and states he does not trust myself or his RNs. Placed back on simple mask at 8L. SPO2 is 92-94% after pt has calmed down. RN aware.
--- NOTE | 2022-08-25 07:30 | NUR ---
TD RN AM NOTE PT AO X2-3 IN BED, ON8L O2 VIA SIMPLE MASK O2 SAT 94%, RESPIRATION UNLABORED, NOT IN ANY DISTRESS, HOB UP 30DER. SR WITH PVCs ON MONITOR, DENIES PAIN/DISCOMFORT, LFA G 20 AND LEFT UPPER MIDLINE IN PLACE, FLUSHES WELL, SITE CLEAR. SEE NURSING FLOWSHEET FOR SKIN ISSUES, CARDIAC DIET. WITH CONDOM CATH DRAINING ADEQUATE AMOUNT, NEEDS CONSTANT COACHING. NEEDS ANTICIPATED. NEEDS ASSIST IN TURNING AND REPOSITIONING. CALL LIGHT WITH IN REACH. SAFETY MEASURES IN PLACE. BED LOW LOCKED. WILL CONT TO MONITOR.
--- NOTE | 2022-08-25 07:47 | NUR ---
RT Inhalation tx not given due to med not available.
[2022-08-25 08:00] VITALS: BP 95/68
[2022-08-25] MEDS: methylPREDNISolone SOD SUCC 40 MG/ML VIAL IV SCH (08:25)
[2022-08-25] MEDS: PANTOPRAZOLE 40 MG VIAL IV SCH ×2 (08:26→21:15)
[2022-08-25] MEDS: NICOTINE PATCH (14MG) 14 MG PATCH.TD24 TD SCH (08:28)
[2022-08-25] MEDS: MULTIVIT W/MINERALS 1 TAB TABLET PO SCH (08:29)
[2022-08-25] MEDS: DOCUSATE SODIUM 100 MG CAPSULE PO SCH ×3 (08:29→16:39)
[2022-08-25] MEDS: FINASTERIDE (5 MG) 5 MG TABLET PO SCH (08:30)
[2022-08-25] MEDS: ASCORBIC ACID 500 MG TABLET PO SCH (08:30)
[2022-08-25] MEDS: ASPIRIN EC 81 MG TABLET.DR PO SCH (08:30)
[2022-08-25] MEDS: CLOTRIMAZOLE/BETAMETASONE DIPROPIONATE 15 GM TUBE TP SCH ×2 (08:33→16:40)
[2022-08-25] MEDS: ENSURE ENLIVE 237 ML LIQUID (VANILLA) PO SCH (08:35)
[2022-08-25] MEDS: AMIODARONE HCL 200 MG TABLET PO SCH ×2 (08:35→16:42)
[2022-08-25] MEDS: METOPROLOL SUCCINATE 25 MG TAB.SR.24H PO SCH (08:36)
--- NOTE | 2022-08-25 09:30 | NUR ---
EBONI DOSHI Addendum: 08/25/22 at 1437 by SAUNDRA RASHID RN EBONI RM
[2022-08-25 12:00] VITALS: BP 90/57
[2022-08-25 12:08] LABS: BASOPHILS % (AUTO) 0.2 % (0.0-2.0); EOSINOPHILS % (AUTO) 0.1 % (0.0-6.0); HEMATOCRIT 24 % (39-51); HEMOGLOBIN 7.3 g/dL (13.5-17.5); LYMPHOCYTES # (AUTO) 0.1 K/uL (0.8-4.8); LYMPHOCYTES % (AUTO) 1.1 % (20.0-44.0); MEAN CORPUSCULAR HGB CONC 31 g/dl (31.0-36.0); MEAN CORPUSCULAR VOLUME 88 fL (80-96); MONOCYTES # (AUTO) 0.6 K/uL (0.1-1.30); MONOCYTES % (AUTO) 4.3 % (2.0-12.0); NEUTROPHILS # (AUTO) 12.6 K/uL (1.8-8.9); NEUTROPHILS % (AUTO) 94.3 % (43.0-81.0); PLATELET COUNT (AUTO) 274 K/uL (150-450); RED BLOOD CELL COUNT(AUTO) 2.68 MIL/uL (4.5-6.0); WHITE BLOOD COUNT (AUTO) 13.3 K/uL (4.3-11.0)
[2022-08-25 12:18] LABS: CALCIUM, SERUM 8.4 mg/dL (8.5-10.1); CREATININE 0.7 mg/dL (0.6-1.3); PHOSPHORUS 3.2 mg/dL (2.5-4.9); POTASSIUM 4.1 mmol/L (3.5-5.1)
--- NOTE | 2022-08-25 12:44 | NUR ---
RN NOTES CRITICAL RESULT CO2 = 42. RELAYED TO TEDDY REYEZ NP
--- NOTE | 2022-08-25 13:11 | NUR ---
EBONI NOTES RELAYED TO Price REYEZ NP RE PT'S WANTS TO TALK TO HER PHONE NUMBER [phone] ALSO WANTS LOW AIRLOSS MATTRESS FOR SACRAL REDNESS AND A TRAPEZE Addendum: 08/25/22 at 1819 by SAUNDRA RASHID RN EBONI NOTES NO NEW ORDERS
[2022-08-25 15:28] LABS: ABG BASE EXCESS 12.4 mmol/L; ABG OXYGEN SATURATION 92.8 % (92.0-98.5); ABG PCO2 55.6 mmHg (35.0-45.0); ABG PH 7.451 (7.350-7.450); ABG PO2 67.7 mmHg (75.0-100.0); AaDO2 240.8 mmHg; COHb 0.9 % (0.5-1.5); MetHb 0.5 % (0.0-1.5); O2Hb 91.5 % (94.0-97.0); SITE, ABG Right Radial; VENT MODE, BG SM 8 LPM
[2022-08-25 16:00] VITALS: BP 123/51
--- NOTE | 2022-08-25 18:19 | NUR ---
TD RN CLOSING NOTE PT AO X2-3 IN BED, ON 8L O2 VIA SIMPLE MASK O2 SAT 91%, RESPIRATION UNLABORED, NOT IN ANY DISTRESS, HOB UP 30 DEG. SR WITH PVCs ON MONITOR, DENIES PAIN/DISCOMFORT, LFA G 20 AND LEFT UPPER MIDLINE IN PLACE, FLUSHES WELL, SITE CLEAR. CARDIAC DIET. NEEDS CONSTANT COACHING. NEEDS ATTENDED AND MET FOR NOW. ASSISTED IN TURNING AND REPOSITIONING Q 2 HOURS. CALL LIGHT WITH IN REACH. SAFETY MEASURES IN PLACE. BED LOW LOCKED. PM CARE DONE. WILL ENDORSE TO NEXT SHIFT FOR ODILON
--- NOTE | 2022-08-25 19:54 | NUR ---
RN OPENING NOTE PT LYING SUPINE IN BED. A&OX3. RESPIRATIONS EVEN AND UNLABORED ON 8 LPM SIMPLE FACE MASK. NO ACUTE SIGNS OF DISTRESS. DENIES OTHER NEEDS AT THIS TIME. BED LOCKED AND AT LOWEST POSITION. HOB ELEVATED. 2 SIDE RAILS UP AND BED ALARM ON. RT AT BEDSIDE CONDUCTING BREATHING TX.
[2022-08-25 20:00] VITALS: BP 103/53
[2022-08-25] MEDS: QUETIAPINE FUMARATE 25 MG TABLET PO SCH (21:14)
[2022-08-25] MEDS: TAMSULOSIN 0.4 MG CAP.SR.24H PO SCH (21:14)
[2022-08-25] MEDS: SENNOSIDES/DOCUSATE SODIUM 1 TAB TABLET PO SCH (21:14)
[2022-08-25] MEDS: ATORVASTATIN 10 MG TABLET PO SCH (21:15)
--- NOTE | 2022-08-25 22:26 | NUR ---
PT TRANSFERRED TO ROOM 115-2. PT SAFETY MAINTAINED DURING TRANSFER.
[2022-08-26] VITALS: BP 107/59
[2022-08-26] MEDS: IPRATROPIUM NEB FS 0.5 MG/2.5 ML AMPUL.NEB NEB SCH ×6 (03:30→23:43)
[2022-08-26] MEDS: ALBUTEROL FS 2.5 MG/0.5 ML VIAL.NEB NEB SCH ×6 (03:30→23:43)
[2022-08-26 04:00] VITALS: BP 100/66
--- NOTE | 2022-08-26 07:03 | NUR ---
RN CLOSING NOTE, PATIENT IN BED ASLEEP, AROUSES TO TACTILE STIMULI, ON SIMPLE MASK AT 8L WITH O2 >90% THROUGHOUT THE NIGHT, NSR WITH 1ST DEGREE AV BLOCK IN TELE MONITOR, CONSTANT REDIRECTION PROVIDED TO PATIENT DUE TO REMOVING O2 MASK, REFUSING BIPAP AT NIGHT, OTHERWISE NO SIGNIFICANT CHANGE IN CONDITION DURING THE NIGHT, VS STABLE, BED LOCKED AND IN LOWEST POSITION, CALL LIGHT WITHIN REACH, WILL ENDORSE CONTINUITY OF CARE TO ONCOMING NURSE.
[2022-08-26 07:27] LABS: BASOPHILS % (AUTO) 0.1 % (0.0-2.0); EOSINOPHILS % (AUTO) 0.3 % (0.0-6.0); HEMATOCRIT 22 % (39-51); LYMPHOCYTES # (AUTO) 0.4 K/uL (0.8-4.8); MEAN CORPUSCULAR HGB CONC 32 g/dl (31.0-36.0); MEAN CORPUSCULAR VOLUME 89 fL (80-96); MONOCYTES # (AUTO) 1.2 K/uL (0.1-1.30); MONOCYTES % (AUTO) 11.9 % (2.0-12.0); NEUTROPHILS # (AUTO) 8.2 K/uL (1.8-8.9); NEUTROPHILS % (AUTO) 83.7 % (43.0-81.0); PLATELET COUNT (AUTO) 282 K/uL (150-450); RED BLOOD CELL COUNT(AUTO) 2.48 MIL/uL (4.5-6.0); WHITE BLOOD COUNT (AUTO) 9.8 K/uL (4.3-11.0)
--- NOTE | 2022-08-26 07:29 | NUR ---
RN NOTES RELAYED TO DR. PASTOR PT'S HGB 7
[2022-08-26 07:45] LABS: CALCIUM, SERUM 8.1 mg/dL (8.5-10.1); CHLORIDE 97 mmol/L (98-107); CREATININE 0.5 mg/dL (0.6-1.3); GLUCOSE 95 mg/dL (74-106); MAGNESIUM 2.2 mg/dL (1.8-2.4); PHOSPHORUS 4.2 mg/dL (2.5-4.9); POTASSIUM 3.5 mmol/L (3.5-5.1); SODIUM SERUM 139 mmol/L (136-145); UREA NITROGEN, BLOOD 15 mg/dL (7-18)
--- NOTE | 2022-08-26 07:50 | NUR ---
TD RN AM NOTE PT AO X2-3 IN BED, ON 8L O2 VIA SIMPLE MASK O2 SAT >90%, RESPIRATION UNLABORED, NOT IN ANY DISTRESS, HOB UP 30 DEG. SR WITH PVCs ON MONITOR, DENIES PAIN/DISCOMFORT, LFA G 20 AND LEFT UPPER MIDLINE IN PLACE, FLUSHES WELL, SITE CLEAR. SEE NURSING FLOWSHEET FOR SKIN ISSUES, CARDIAC DIET. ON DIAPERS, NEEDS CONSTANT COACHING. NEEDS ANTICIPATED. NEEDS ASSIST IN TURNING AND REPOSITIONING. CALL LIGHT WITH IN REACH. SAFETY MEASURES IN PLACE. BED LOW LOCKED. WILL CONT TO MONITOR.
[2022-08-26 07:57] LABS: CARBON DIOXIDE 43 mmol/L (21-32)
--- NOTE | 2022-08-26 07:57 | NUR ---
RN NOTES RELAYED TO DR. PASTOR PT'S CO2 LEVEL 43.
[2022-08-26 08:00] VITALS: BP 103/62
[2022-08-26] MEDS: PANTOPRAZOLE 40 MG VIAL IV SCH ×2 (08:08→21:17)
[2022-08-26] MEDS: MULTIVIT W/MINERALS 1 TAB TABLET PO SCH (08:08)
[2022-08-26] MEDS: NICOTINE PATCH (14MG) 14 MG PATCH.TD24 TD SCH (08:08)
[2022-08-26] MEDS: methylPREDNISolone SOD SUCC 40 MG/ML VIAL IV SCH (08:08)
[2022-08-26] MEDS: FINASTERIDE (5 MG) 5 MG TABLET PO SCH (08:09)
[2022-08-26] MEDS: ASCORBIC ACID 500 MG TABLET PO SCH (08:09)
[2022-08-26] MEDS: ASPIRIN EC 81 MG TABLET.DR PO SCH (08:09)
[2022-08-26] MEDS: DOCUSATE SODIUM 100 MG CAPSULE PO SCH ×3 (08:09→16:55)
[2022-08-26] MEDS: ENSURE ENLIVE 237 ML LIQUID (VANILLA) PO SCH (08:10)
[2022-08-26] MEDS: CLOTRIMAZOLE/BETAMETASONE DIPROPIONATE 15 GM TUBE TP SCH ×2 (08:11→16:56)
[2022-08-26] MEDS: AMIODARONE HCL 200 MG TABLET PO SCH ×2 (08:19→16:55)
[2022-08-26] MEDS: METOPROLOL SUCCINATE 25 MG TAB.SR.24H PO SCH (08:19)
--- NOTE | 2022-08-26 09:30 | NUR ---
RN NOTES DUE MEDS GIVEN
--- NOTE | 2022-08-26 10:55 | NUR ---
RN NOTES DR. PASTOR AR BEDSIDE. NO NEW ORDERS FOR HGB LEVEL OF 7 AND CO2 LEVEL 43. WILL DO REPEAT LABS TOMORROW OKAY FOR PSYCH CONSULT D/T PT C/O HEARING VOICES OKAY FOR PHYSICAL THERAPY FOR OUT OF BED AND MOBILITY
[2022-08-26 12:00] VITALS: BP 89/62
[2022-08-26 13:07] LABS: BAND % (MANUAL) 2 % (0.0-5.0); LYMPHOCYTES % (MANUAL) 6 % (16-48); MONOCYTES % (MANUAL) 7 % (0-11.0); NEUTROPHILS % (MANUAL) 85 (42-76)
[2022-08-26 16:00] VITALS: BP_SYST 102; BP_SYST 88; BP_DIAS 52; BP_DIAS 55
[2022-08-26] MEDS: QUETIAPINE FUMARATE 25 MG TABLET PO SCH ×2 (16:54→21:18)
--- NOTE | 2022-08-26 18:17 | NUR ---
BOOT LACE CUTTER MACHINE CLOSING NOTE PT AO X2-3 IN BED, ON 8L O2 VIA SIMPLE MASK O2 SAT 90%, RESPIRATION UNLABORED, NOT IN ANY DISTRESS, HOB UP 30 DEG. SR WITH PVCs ON MONITOR, DENIES PAIN/DISCOMFORT, LFA G 20 AND LEFT UPPER MIDLINE IN PLACE, FLUSHES WELL, SITE CLEAR. CARDIAC DIET. NEEDS CONSTANT COACHING. NEEDS ATTENDED AND MET FOR NOW. ASSISTED IN TURNING AND REPOSITIONING Q 2 HOURS. CALL LIGHT WITH IN REACH. SAFETY MEASURES IN PLACE. BED LOW LOCKED. PM CARE DONE. WILL ENDORSE TO NEXT SHIFT FOR ODILON
--- NOTE | 2022-08-26 19:30 | NUR ---
RN OPENING NOTE RECEIVED PT IN BED ASLEEP, A/O 2-3, ON SIMPLE MASK AT 8L, NO S/S OF ACUTE DISTRESS, TELE MONITOR READING SR, IV ACCESS LFA #20G, INTACT AND PATENT, AND IVONE M/L, INTACT AND PATENT. ALL SAFETY MEASURES IN PLACE; BED LOCKED IN LOW POSITION, BED ALARM ON, CALL LIGHT WITHIN REACH, SIDE RAILS UP X3. WILL CONTINUE TO MONITOR THROUGHOUT SHIFT.
[2022-08-26 20:00] VITALS: BP 116/77
[2022-08-26] MEDS: ATORVASTATIN 10 MG TABLET PO SCH (21:18)
[2022-08-26] MEDS: TAMSULOSIN 0.4 MG CAP.SR.24H PO SCH (21:18)
[2022-08-26] MEDS: SENNOSIDES/DOCUSATE SODIUM 1 TAB TABLET PO SCH (21:18)
[2022-08-27] VITALS: BP 131/74
[2022-08-27] MEDS: IPRATROPIUM NEB FS 0.5 MG/2.5 ML AMPUL.NEB NEB SCH ×6 (03:30→23:47)
[2022-08-27] MEDS: ALBUTEROL FS 2.5 MG/0.5 ML VIAL.NEB NEB SCH ×6 (03:30→23:48)
[2022-08-27 04:00] VITALS: BP 134/75
--- NOTE | 2022-08-27 06:50 | NUR ---
RN CLOSING NOTE PT IN BED ASLEEP, A/O 2-3, ON SIMPLE MASK AT 8L, NO S/S OF ACUTE DISTRESS, TELE MONITOR READING SR, IV ACCESS LFA #20G, INTACT AND PATENT, AND IVONE M/L, INTACT AND PATENT.ALL DUE MEDS GIVEN. ALL SAFETY MEASURES IN PLACE: BED LOCKED IN LOW POSITION, SR UP X 2, BED ALARM ON. HOB ELEVATED. CALL LIGHT WITHIN REACH. WILL ENDORSE TO MORNING SHIFT FOR ODILON.
[2022-08-27 07:06] LABS: CALCIUM, SERUM 8.3 mg/dL (8.5-10.1); CHLORIDE 97 mmol/L (98-107); CREATININE 0.5 mg/dL (0.6-1.3); GLUCOSE 94 mg/dL (74-106); MAGNESIUM 2.2 mg/dL (1.8-2.4); PHOSPHORUS 4.4 mg/dL (2.5-4.9); SODIUM SERUM 140 mmol/L (136-145); UREA NITROGEN, BLOOD 15 mg/dL (7-18)
--- NOTE | 2022-08-27 07:10 | NUR ---
RN OPENING NOTE RECEIVED PT IN BED ASLEEP, A/O X3, ON SIMPLE MASK AT 8L, NO S/S OF ACUTE DISTRESS, NO SIGNS OF PAIN OR DISCOMFORT. TELE MONITOR READING SR, IV ACCESS IVONE M/L, INTACT AND PATENT. ALL SAFETY MEASURES IN PLACE; BED LOCKED IN LOW POSITION, BED ALARM ON, CALL LIGHT WITHIN REACH, SIDE RAILS UP X2
[2022-08-27 07:25] LABS: CARBON DIOXIDE 40 mmol/L (21-32)
[2022-08-27 07:45] LABS: BASOPHILS % (AUTO) 0.1 % (0.0-2.0); EOSINOPHILS % (AUTO) 0.3 % (0.0-6.0); HEMATOCRIT 23 % (39-51); HEMOGLOBIN 7.1 g/dL (13.5-17.5); LYMPHOCYTES # (AUTO) 0.3 K/uL (0.8-4.8); LYMPHOCYTES % (AUTO) 3.4 % (20.0-44.0); MEAN CORPUSCULAR HGB CONC 31 g/dl (31.0-36.0); MEAN CORPUSCULAR VOLUME 90 fL (80-96); MONOCYTES % (AUTO) 12.2 % (2.0-12.0); NEUTROPHILS # (AUTO) 6.9 K/uL (1.8-8.9); PLATELET COUNT (AUTO) 331 K/uL (150-450); RED BLOOD CELL COUNT(AUTO) 2.54 MIL/uL (4.5-6.0); WHITE BLOOD COUNT (AUTO) 8.2 K/uL (4.3-11.0)
[2022-08-27 08:00] VITALS: BP 111/63
--- NOTE | 2022-08-27 08:24 | NUR ---
rn note notified that co2 40.
--- NOTE | 2022-08-27 08:56 | NUR ---
WOUND CARE CONSULT/FOLLOW UP: PT SEEN FOR RE-EVALUATION OF RASH TO GROIN FOLDS, PERINEUM AND BUTTOCKS. PT IS INCONTINENT. PER NURSING STAFF, PT UNCOOPERATIVE AT TIMES. RECOMMENDATIONS MADE FOR SKIN PROTECTION. DISCUSSED WITH NURSING STAFF. IN AGREEMENT WITH PLAN OF CARE. Addendum: 08/27/22 at 0858 by JARETH VALDOVNIOS WNDNU Amended: Links added.
[2022-08-27] MEDS: QUETIAPINE FUMARATE 25 MG TABLET PO SCH ×3 (09:00→21:14)
--- NOTE | 2022-08-27 10:00 | NUR ---
provided updates to [facility]
[2022-08-27] MEDS: ASPIRIN EC 81 MG TABLET.DR PO SCH (10:05)
[2022-08-27] MEDS: DOCUSATE SODIUM 100 MG CAPSULE PO SCH (10:05)
[2022-08-27] MEDS: methylPREDNISolone SOD SUCC 40 MG/ML VIAL IV SCH (10:05)
[2022-08-27] MEDS: AMIODARONE HCL 200 MG TABLET PO SCH ×2 (10:06→16:18)
[2022-08-27] MEDS: PANTOPRAZOLE 40 MG TABLET.DR PO SCH ×2 (10:06→21:15)
[2022-08-27] MEDS: FINASTERIDE (5 MG) 5 MG TABLET PO SCH (10:06)
[2022-08-27] MEDS: MULTIVIT W/MINERALS 1 TAB TABLET PO SCH (10:06)
[2022-08-27] MEDS: ASCORBIC ACID 500 MG TABLET PO SCH (10:09)
[2022-08-27] MEDS: ENSURE ENLIVE 237 ML LIQUID (VANILLA) PO SCH (10:31)
[2022-08-27] MEDS: NICOTINE PATCH (14MG) 14 MG PATCH.TD24 TD SCH (10:31)
[2022-08-27] MEDS: METOPROLOL SUCCINATE 25 MG TAB.SR.24H PO SCH (10:32)
[2022-08-27 12:00] VITALS: BP 95/57
[2022-08-27] MEDS: DOCUSATE SODIUM LIQ 100 MG/10 ML UDC GT SCH ×2 (13:37→16:14)
--- NOTE | 2022-08-27 14:15 | NUR ---
rn note notified that pt's wants to speak with her urgently. pt's wants to take him out of hospital with 24 hr caregiver. says pt is not getting better at the hospital . acknowledged. spoke with pt's . pt wants to do hospice care. relayed information dr. perez
[2022-08-27] MEDS: CLOTRIMAZOLE/BETAMETASONE DIPROPIONATE 15 GM TUBE TP SCH ×2 (15:22→16:19)
--- NOTE | 2022-08-27 15:30 | NUR ---
rn note spoke with pt's and relayed information from .dr. perez said pt can go AMA or hospice care. relayed information to pt's .pt's decided to go with hospice. gave number to sample case porter and informed dr. perez.
[2022-08-27 16:00] VITALS: BP 103/62
--- NOTE | 2022-08-27 16:00 | NUR ---
rn note dr. perez attempted to call patient's , but pt's did not answer
--- NOTE | 2022-08-27 18:51 | NUR ---
rn note notified that patient has black stool but there is no urine output Addendum: 08/27/22 at 1931 by KEERTHI SIERRA RN ordered stool ob and put in marion.endorsed to operations supervisor 2nd shift rn
--- NOTE | 2022-08-27 18:58 | NUR ---
RN CLOSING NOTE PT IN BED ASLEEP, A/O X3, ON SIMPLE MASK AT 8L, NO S/S OF ACUTE DISTRESS, NO SIGNS OF PAIN OR DISCOMFORT. TELE MONITOR READING SR, IV ACCESS IVONE M/L, INTACT AND PATENT. ALL SAFETY MEASURES IN PLACE; BED LOCKED IN LOW POSITION, BED ALARM ON, CALL LIGHT WITHIN REACH, SIDE RAILS UP X2. ENDORSED CONTINUITY OF CARE TO PAINTER CHASSIS RN
--- NOTE | 2022-08-27 19:30 | NUR ---
RN OPENING NOTE RECEIVED PT IN BED ASLEEP, A/O 2-3, ON SIMPLE MASK AT 8L, NO S/S OF ACUTE DISTRESS, TELE MONITOR READING SR, IV ACCESS LFA #20G, INTACT AND PATENT, AND IVONE M/L, INTACT AND PATENT. MORNING SHIFT ENDORSED AN ORDER FOR BRYANT CATHETER AND STOOL SAMPLE. ALL SAFETY MEASURES IN PLACE; BED LOCKED IN LOW POSITION, BED ALARM ON, CALL LIGHT WITHIN REACH, SIDE RAILS UP X3. WILL CONTINUE TO MONITOR THROUGHOUT SHIFT.
[2022-08-27 20:00] VITALS: BP 103/62
--- NOTE | 2022-08-27 20:15 | NUR ---
RN NOTE STOOL SAMPLE COLLECTED AND SENT TO LAB. AND BRYANT CATHETER PLACED.
[2022-08-27] MEDS: SENNOSIDES/DOCUSATE SODIUM 1 TAB TABLET PO SCH (21:14)
[2022-08-27] MEDS: TAMSULOSIN 0.4 MG CAP.SR.24H PO SCH (21:15)
[2022-08-27] MEDS: ATORVASTATIN 10 MG TABLET PO SCH (21:15)
--- NOTE | 2022-08-27 23:50 | NUR ---
RT NOTE PT REFUSED BIPAP AT THIS TIME. EBONI DURAND NOTIFIED AND AWARE. NO RESPIRATORY DISTRESS NOTED. WILL CONTINUE TO MONITOR.
[2022-08-28] VITALS (12 sets, daily range): BP systolic 93–116; BP diastolic 49–78
[2022-08-28] MEDS: IPRATROPIUM NEB FS 0.5 MG/2.5 ML AMPUL.NEB NEB SCH ×6 (03:34→23:30)
[2022-08-28] MEDS: ALBUTEROL FS 2.5 MG/0.5 ML VIAL.NEB NEB SCH ×6 (03:35→23:30)
[2022-08-28 05:57] LABS: OCCULT BLOOD STOOL NEGATIVE (NEGATIVE)
[2022-08-28 06:47] LABS: EOSINOPHILS % (AUTO) 0.6 % (0.0-6.0); LYMPHOCYTES # (AUTO) 0.3 K/uL (0.8-4.8); LYMPHOCYTES % (AUTO) 4.6 % (20.0-44.0); MEAN CORPUSCULAR HGB CONC 32 g/dl (31.0-36.0); MEAN CORPUSCULAR VOLUME 89 fL (80-96); NEUTROPHILS # (AUTO) 5.7 K/uL (1.8-8.9); NEUTROPHILS % (AUTO) 80.8 % (43.0-81.0); PLATELET COUNT (AUTO) 341 K/uL (150-450); WHITE BLOOD COUNT (AUTO) 7.1 K/uL (4.3-11.0)
[2022-08-28 07:05] LABS: HEMATOCRIT 20 % (39-51); HEMOGLOBIN 6.3 g/dL (13.5-17.5)
[2022-08-28 07:06] LABS: CALCIUM, SERUM 8.1 mg/dL (8.5-10.1); CHLORIDE 95 mmol/L (98-107); CREATININE 0.5 mg/dL (0.6-1.3); GLUCOSE 84 mg/dL (74-106); PHOSPHORUS 3.4 mg/dL (2.5-4.9); POTASSIUM 3.8 mmol/L (3.5-5.1); SODIUM SERUM 136 mmol/L (136-145); UREA NITROGEN, BLOOD 14 mg/dL (7-18)
--- NOTE | 2022-08-28 07:11 | NUR ---
RN CLOSING NOTE JUST RECEIVED A CRITICAL REPORT FROM LAB DURING REPORT, HGB: 6.3 AND HCT: 20 WILL ENDORSE. PT IN BED ASLEEP, A/O 2-3, ON SIMPLE MASK AT 8L, NO S/S OF ACUTE DISTRESS, TELE MONITOR READING SR, IV ACCESS LFA #20G, INTACT AND PATENT, AND IVONE M/L, INTACT AND PATENT. ALL DUE MEDS GIVEN. ALL SAFETY MEASURES IN PLACE: BED LOCKED IN LOW POSITION, SR UP X 2, BED ALARM ON. HOB ELEVATED. CALL LIGHT WITHIN REACH. WILL ENDORSE TO MORNING SHIFT FOR ODILON
[2022-08-28 07:36] LABS: CARBON DIOXIDE 42 mmol/L (21-32)
--- NOTE | 2022-08-28 08:13 | NUR ---
RN NOTE NOTIFIED DR OLIVO OF CRITICAL LAB VALUES OF 6.3 HGB AND HCT 20, AND CO2 42. DR ORDERED 1 UNIT OF RBCS. Addendum: 08/28/22 at 0816 by IVA WELLS RN CONSENT SIGNED IN PATIENT FILE.
[2022-08-28] MEDS: CLOTRIMAZOLE/BETAMETASONE DIPROPIONATE 15 GM TUBE TP SCH ×2 (09:00→17:00)
[2022-08-28] MEDS: ENSURE ENLIVE 237 ML LIQUID (VANILLA) PO SCH (09:00)
--- NOTE | 2022-08-28 10:27 | NUR ---
RN NOTE FECAL OCCULT BLOOD COLLECTED AND SENT TO LAB.
[2022-08-28 10:54] LABS: OCCULT BLOOD STOOL POSITIVE (NEGATIVE)
[2022-08-28] MEDS: ASCORBIC ACID 500 MG TABLET PO SCH (12:34)
[2022-08-28] MEDS: MULTIVIT W/MINERALS 1 TAB TABLET PO SCH (12:34)
[2022-08-28] MEDS: NICOTINE PATCH (14MG) 14 MG PATCH.TD24 TD SCH (12:34)
[2022-08-28] MEDS: ASPIRIN EC 81 MG TABLET.DR PO SCH (12:34)
[2022-08-28] MEDS: FINASTERIDE (5 MG) 5 MG TABLET PO SCH (12:34)
[2022-08-28] MEDS: METOPROLOL SUCCINATE 25 MG TAB.SR.24H PO SCH (12:35)
[2022-08-28] MEDS: methylPREDNISolone SOD SUCC 40 MG/ML VIAL IV SCH (12:35)
[2022-08-28] MEDS: DOCUSATE SODIUM LIQ 100 MG/10 ML UDC GT SCH ×3 (12:36→19:29)
[2022-08-28] MEDS: AMIODARONE HCL 200 MG TABLET PO SCH ×2 (12:36→17:00)
[2022-08-28] MEDS: PANTOPRAZOLE 40 MG TABLET.DR PO SCH ×2 (12:36→21:32)
[2022-08-28] MEDS: QUETIAPINE FUMARATE 25 MG TABLET PO SCH ×3 (12:36→23:29)
[2022-08-28 15:38] LABS: LYMPHOCYTES % (MANUAL) 5 % (16-48); MONOCYTES % (MANUAL) 15 % (0-11.0); NEUTROPHILS % (MANUAL) 80 (42-76)
--- NOTE | 2022-08-28 19:15 | NUR ---
RN OPENING NOTE RECEIVED PT IN BED AWAKE, A/O 2-3, ON SIMPLE MASK AT 8L, NO S/S OF ACUTE DISTRESS, TELE MONITOR READING SR, PT CURRENTLY FINISHING UP BLOOD TRANSFUSION. IV ACCESS LFA #20G, INTACT AND PATENT, AND IVONE M/L, INTACT AND PATENT. BRYANT CATHETER DRAINING CLEAR YELLOW/MEL URINE. ALL SAFETY MEASURES IN PLACE; BED LOCKED IN LOW POSITION, BED ALARM ON, CALL LIGHT WITHIN REACH, SIDE RAILS UP X3. WILL CONTINUE TO MONITOR THROUGHOUT SHIFT.
--- NOTE | 2022-08-28 19:59 | NUR ---
RN CLOSING NOTE COMPLETED 1 UNIT OF RBC AT 1910, VS: BP 106/64, HR 96 RR 20 AND ORAL TEMP OF 97.5. PT IN BED BREATHING ON 8L WITH SIMPLE MASK AT 97% 02 SAT. BRYANT CATHETER IN PLACE, KEPT CLEAN AND DRY. IVONE MIDLINE INTACT AND CLEAN. PATIENT IN BED, LOCKED IN LOWEST POSITION, ALL SAFETY MEASURES IN PLACE. CALL LIGHT AND PHONE WITHIN REACH, WILL ENDORSE CONTINUITY OF CARE TO PERFORMANCE TEST ARCHITECT NURSE.
[2022-08-28] MEDS: ACETAMINOPHEN 325 MG TABLET PO PRN (21:18)
[2022-08-28] MEDS: TAMSULOSIN 0.4 MG CAP.SR.24H PO SCH (21:31)
[2022-08-28] MEDS: SENNOSIDES/DOCUSATE SODIUM 1 TAB TABLET PO SCH (21:31)
[2022-08-28] MEDS: ATORVASTATIN 10 MG TABLET PO SCH (21:31)
[2022-08-29] VITALS: BP 95/61
[2022-08-29] MEDS: IPRATROPIUM NEB FS 0.5 MG/2.5 ML AMPUL.NEB NEB SCH ×4 (03:30→15:24)
[2022-08-29] MEDS: ALBUTEROL FS 2.5 MG/0.5 ML VIAL.NEB NEB SCH ×4 (03:30→15:24)
[2022-08-29 04:00] VITALS: BP 137/81
--- NOTE | 2022-08-29 06:45 | NUR ---
RN CLOSING NOTE PT IN BED AWAKE, A/O 2, PT SEEMED TO WAKE UP ALOT THROUGHOUT THE NIGHT AND HAVE MORE CONFUSED EPISODES. ON SIMPLE MASK AT 8L, NO S/S OF ACUTE DISTRESS, TELE MONITOR READING SR, IV ACCESS LFA #20G, INTACT AND PATENT, AND IVONE M/L, INTACT AND PATENT. BRYANT CATHETER DRAINED CLEAR YELLOW/MEL URINEOUTPUT OF 900ML.ALL DUE MEDS GIVEN. ALL SAFETY MEASURES IN PLACE; BED LOCKED IN LOW POSITION, BED ALARM ON, CALL LIGHT WITHIN REACH, SIDE RAILS UP X3. WILL ENDORSE TO MORNING SHIFT FOR ODILON.
--- NOTE | 2022-08-29 07:00 | NUR ---
PARTS RUNNER OPENING NOTE RECEIVED PT IN BED ASLEEP, A/O 2-3, ON SIMPLE MASK AT 8L, NO S/S OF ACUTE DISTRESS, TELE MONITOR READING SR, IV ACCESS LFA #20G, INTACT AND PATENT, AND IVONE M/L, INTACT AND PATENT.BRYANT CATHETER PATENT DRAINING YELLOW CLEAR URINE. ALL SAFETY MEASURES IN PLACE; BED LOCKED IN LOW POSITION, BED ALARM ON, CALL LIGHT WITHIN REACH, SIDE RAILS UP X3. WILL MONITOR
[2022-08-29 08:00] VITALS: BP 113/65
[2022-08-29] MEDS: AMIODARONE HCL 200 MG TABLET PO SCH (08:25)
[2022-08-29] MEDS: NICOTINE PATCH (14MG) 14 MG PATCH.TD24 TD SCH (08:26)
[2022-08-29] MEDS: methylPREDNISolone SOD SUCC 40 MG/ML VIAL IV SCH (08:26)
[2022-08-29] MEDS: DOCUSATE SODIUM LIQ 100 MG/10 ML UDC GT SCH ×2 (08:26→13:32)
[2022-08-29] MEDS: ASCORBIC ACID 500 MG TABLET PO SCH (08:26)
[2022-08-29] MEDS: ASPIRIN EC 81 MG TABLET.DR PO SCH (08:27)
[2022-08-29] MEDS: METOPROLOL SUCCINATE 25 MG TAB.SR.24H PO SCH (08:27)
[2022-08-29] MEDS: MULTIVIT W/MINERALS 1 TAB TABLET PO SCH (08:27)
[2022-08-29] MEDS: FINASTERIDE (5 MG) 5 MG TABLET PO SCH (08:28)
[2022-08-29] MEDS: PANTOPRAZOLE 40 MG TABLET.DR PO SCH (08:28)
[2022-08-29] MEDS: QUETIAPINE FUMARATE 25 MG TABLET PO SCH (08:28)
[2022-08-29] MEDS: CLOTRIMAZOLE/BETAMETASONE DIPROPIONATE 15 GM TUBE TP SCH (08:50)
[2022-08-29] MEDS: ENSURE ENLIVE 237 ML LIQUID (VANILLA) PO SCH (08:50)
[2022-08-29 12:00] VITALS: BP 113/71
--- NOTE | 2022-08-29 16:00 | NUR ---
furniture assembler and installer notes: pt in bed awake, alert and oriented x 2 on simple mask 8 liter /min, no sob noted. ambulance came to take pt home under hospice, all belonging sent with pt including cell phone, denture and glasses. v/v BP 111/66, temp97.7, pulse 99 resp 18 .O2 sat 99% left in STABLE CONDITION WILL BE HOME UNDER HOSPICE
== END 2022-08-29 19:09 | disposition hospice, home (50) | DRG 189 ==
LOC: ER 01:30 → ICU 08:22 → TELE-TD 07-31 17:59 → ICU 07-31 18:06 → TELE-TD 08-01 18:15 → TELE1 08-03 16:24 → ICU 08-17 22:43 → TELE-TD 08-23 16:12 → TELE1 08-26 10:47
PROVIDERS: ADMIT Internal Medicine; ATTEND Student in an Organized Health Care Education/Training Program
PROC: 5A09357 Assistance with Respiratory Ventilation, Less than 24 Consecutive Hours, Continuous Positive Airway Pressure (ICD-10-PCS; principal; 2022-07-30)
PROC: 05HA33Z Insertion of Infusion Device into Left Brachial Vein, Percutaneous Approach (ICD-10-PCS; 2022-08-17)
PROC: 30233N1 Transfusion of Nonautologous Red Blood Cells into Peripheral Vein, Percutaneous Approach (ICD-10-PCS; 2022-08-20)
DX: J96.21 Acute and chronic respiratory failure with hypoxia (principal); G92.8 Other toxic encephalopathy; J18.9 Pneumonia, unspecified organism; J44.1 Chronic obstructive pulmonary disease with (acute) exacerbation; E44.0 Moderate protein-calorie malnutrition; E87.4 Mixed disorder of acid-base balance; J44.0 Chronic obstructive pulmonary disease with (acute) lower respiratory infection; J96.22 Acute and chronic respiratory failure with hypercapnia; Y95 Nosocomial condition; Z20.822 Contact with and (suspected) exposure to COVID-19; D64.9 Anemia, unspecified; R19.5 Other fecal abnormalities; E78.5 Hyperlipidemia, unspecified; E87.6 Hypokalemia; F32.9 Major depressive disorder, single episode, unspecified; F43.24 Adjustment disorder with disturbance of conduct; F41.9 Anxiety disorder, unspecified; I10 Essential (primary) hypertension; I25.10 Atherosclerotic heart disease of native coronary artery without angina pectoris; N40.0 Benign prostatic hyperplasia without lower urinary tract symptoms; Z22.322 Carrier or suspected carrier of Methicillin resistant Staphylococcus aureus; Z53.20 Procedure and treatment not carried out because of patient's decision for unspecified reasons; Z91.14 Patient's other noncompliance with medication regimen; Z95.0 Presence of cardiac pacemaker
CPT/HCPCS: 31720; 36415; 36600; 70450-TC; 71045-TC; 80048-TC; 80053-TC; 82247-TC; 82272-TC; 82803-TC; 82962-TC; 83010; 83615-TC; 83735-TC; 84100-TC; 84443-TC; 84484-TC; 85025-TC; 85027-TC; 86850-TC; 86880-TC; 87040-TC; 87070-TC; 87081-TC; 94660; 94760-TC; 94762-TC; 94799-TC; 97110-TC; 97530-TC; 99082-TC; A4349; A6253; C9113; C9803; G0378; J0696; J1650; J1940; J2543; J2920; J2930; J3480; J7030; J7040; J7042; J7050; J7060; P9016; Q9967